=== PATIENT | female | born 1935 | race Caucasian/White ===

== ENCOUNTER 2017-04-16 10:52 | Day surgery (SDC) | payer MEDICARE ==
[2017-04-16] MEDS ORDERED: MethylPREDNISolone Depo 40 mg/ml Inj ONE (11:51)
[2017-04-16] MEDS ORDERED: Bupivacaine HCl 0.5% PF (10 ml) Inj ONE ×2 (11:52→12:01)
[2017-04-16] MEDS ORDERED: Iohexol 300 10 ML ONE (11:52)
[2017-04-16 11:54] VITALS: BMI 39.6
[2017-04-16] MEDS ORDERED: Bupivacaine HCl 0.25% PF (30 ml) Inj ONE (12:01)
[2017-04-16] MEDS ORDERED: Midazolam 2 MG/2 ML VIAL ONE (12:16)
[2017-04-16] MEDS ORDERED: Lactated Ringer's 1,000 ML IV ONE (12:22)
[2017-04-16] MEDS ORDERED: Lidocaine 1% Inj (20ml) ONE (12:22)
[2017-04-16] MEDS ORDERED: Bupivacaine 0.25% Inj(30mL) IJ ONE (12:32)
[2017-04-16] MEDS ORDERED: Iohexol 300 10 ML IJ ONE (12:32)
[2017-04-16] MEDS ORDERED: Lidocaine 1% Inj (20ml) IJ ONE (12:33)
[2017-04-16] MEDS ORDERED: MethylPREDNISolone Depo 40 mg/ml Inj IM ONE ×2 (12:35)
[2017-04-16 13:00] VITALS: RESP 18
[2017-04-16] MEDS ORDERED: Lactated Ringer's 1,000 ML IV SCH (14:11)
[2017-04-16 15:10] VITALS: BP 144/69; PULSE 72; TEMP 97; O2SAT 98
--- NOTE | 2017-04-16 16:01 | RAD ---
PROCEDURE: Fluoroscopy up to 1 hr. HISTORY: PAIN MANAGEMENT COMPARISON: None TECHNIQUE: Standard FINDINGS: Submitted images from the current procedure: 3.0 IMPRESSION: Less than 1 hr fluoroscopic time utilized during performance of the procedure. Total fluoroscopic time (continuous mode) utilized during the procedure: 39.6 seconds.
--- NOTE | 2017-04-18 08:02 | PCM.OP ---
Operative Report - Operative Report Date of Surgery/Procedure: 04/16/17 Time of Surgery/Procedure: 13:30 Surgeon: Lucho Anesthesia/Sedation: Monitored Anesthesia Care. Pre-Operative Diagnosis: Lumbar radiculopathy Post-Operative Diagnosis: Same Indication for Surgery: Intractable Pain Operative Findings: See dictation. Procedure/Operation Description: Left L3-4, L4-5, L5-6 transforaminal epidural steroid injections Estimated Blood Loss: None. Complications: NOne. Discharge & Condition: Stable to home.
== END 2017-04-16 15:15 | disposition home or self-care (01) ==
LOC: H.OPSURG 10:52
PROVIDERS: ATTEND Anesthesiology
DX: M54.16 Radiculopathy, lumbar region (principal); E11.9 Type 2 diabetes mellitus without complications; I10 Essential (primary) hypertension; Z86.73 Personal history of transient ischemic attack (TIA), and cerebral infarction without residual deficits
CPT/HCPCS: 64483; 64484; 82948; J1030; J2250; J3010; J7120; Q9967

== ENCOUNTER 2017-05-30 15:20 | Observation (INO) | payer MEDICARE ==
[2017-05-30 15:20] VITALS: BMI 39.6
--- NOTE | 2017-05-30 15:50 | ED PDOC ---
HPI: Abdomen Time Seen by Provider: 05/30/17 15:31 Chief Complaint (Nursing): Abdominal Pain Chief Complaint (Provider): Dizziness History Per: Patient History/Exam Limitations: no limitations Onset/Duration Of Symptoms: Days Current Symptoms Are (Timing): Still Present Associated Symptoms: Nausea, Vomiting Additional Complaint(s): Bebe Wheeler presents to the ED for a chief complaint of dizziness that exacerbates with side to side head movement. Associated symptoms include nausea and vomiting x2days. Denies any chest pain, palpitations, headache or loss of consciousness. Of note, patient has a past medical history of diabetes, HTN, and CVA. PMD: Dr. Carlos Goldman. Past Medical History Reviewed: Historical Data, Nursing Documentation, Vital Signs Vital Signs: Last Vital Signs Temp 97.8 F 05/30/17 15:27 Pulse 76 05/30/17 15:27 Resp 18 05/30/17 15:27 BP 131/65 05/30/17 15:27 Pulse Ox 96 05/30/17 16:02 - Medical History PMH: Asthma, Atrial Fibrillation (new onset), COPD, HTN, Hypercholesterolemia Denies: Arthritis, CHF, Hypothyroidism, Chronic Kidney Disease, Rheumatoid Arthritis - Surgical History Surgical History: No Surg Hx - Family History Family History: States: Unknown Family Hx - Home Medications Home Medications: Ambulatory Orders Medication Instructions Recorded hydroCHLOROthiazide [Microzide] 12.5 mg PO DAILY 03/24/15 Lisinopril 10 mg PO DAILY 11/23/15 metFORMIN [glucOPHAGE] 850 mg PO BID 12/07/15 Aspirin [Ecotrin] 81 mg PO DAILY 05/30/17 LORazepam [Ativan] 0.5 mg PO BID PRN 05/30/17 Simvastatin [Simvastatin] 10 mg PO HS 05/30/17 - Allergies Allergies/Adverse Reactions: Allergies Allergy/AdvReac Type Severity Reaction Status Date / Time aspirin Allergy SWELLING Verified 05/30/17 15:27 olive oil Allergy SWELLING Verified 05/30/17 15:27 Review of Systems ROS Statement: Except As Marked, All Systems Reviewed And Found Negative Cardiovascular: Negative for: Chest Pain, Palpitations Gastrointestinal: Positive for: Nausea (x2days.), Vomiting (x2days.) Neurological: Positive for: Dizziness. Negative for: Headache, Other (No Loss of consciousness.) Physical Exam - Reviewed Nursing Documentation Reviewed: Yes Vital Signs Reviewed: Yes - Physical Exam Appears: Positive for: Well, Non-toxic, No Acute Distress Head Exam: Positive for: ATRAUMATIC, NORMAL INSPECTION, NORMOCEPHALIC Eye Exam: Positive for: Normal appearance, EOMI, PERRL Cardiovascular/Chest: Positive for: Regular Rate, Rhythm Respiratory: Positive for: Normal Breath Sounds (Lungs lear bilaterally). Negative for: Wheezing, Respiratory Distress Gastrointestinal/Abdominal: Positive for: Normal Exam, Soft. Negative for: Tenderness Extremity: Positive for: Normal ROM (Full range of motion.). Negative for: Swelling Neurologic/Psych: Positive for: Alert (Awake.), Oriented (x3) - Laboratory Results Result Diagrams: 05/30/17 16:25 05/30/17 16:25 - ECG O2 Sat by Pulse Oximetry: 96 (RA) Pulse Ox Interpretation: Normal Medical Decision Making Medical Decision Making: Time: 1531: Initial Impression: 82 year old female with dizziness. Initial Plan: * Head CT * EKG * CBC W/ differentials * Troponin I * CMP * Re-evaluation Scribe Attestation: Documented by Arleen Freed acting as a scribe for Kit Tucker MD. Provider Scribe Attestation: All medical record entries made by the Scribe were at my direction and personally dictated by me. I have reviewed the chart and agree that the record accurately reflects my personal performance of the history, physical exam, medical decision making, and the department course for this patient. I have also personally directed, reviewed, and agree with the discharge instructions and disposition. Disposition - Clinical Impression Clinical Impression: Vertigo, Intracerebral bleed - Patient ED Disposition Is Patient to be Admitted: Yes - Disposition Disposition Time: 17:54 Condition: FAIR Forms: Local [employer] (Romanian) - Pt Status Changed To: Hospital Disposition Of: Observation - POA Present On Arrival: None
[2017-05-30 16:49] LABS: BASO % 0.2 % (0.0-2.0); EOS # 0.1 K/uL (0.0-0.7); EOS % 1.9 % (0.0-4.0); HEMOGLOBIN 14.1 g/dL (12.0-16.0); LYMPH # 1.7 K/uL (1.0-4.3); LYMPH % 23.8 % (20.0-40.0); MEAN CELL VOLUME 87.1 fl (81.0-99.0); MEAN CORPUSCULAR HEMOGLOBIN 29.9 pg (27.0-31.0); MEAN CORPUSCULAR HGB CONC 34.4 g/dL (33.0-37.0); MEAN PLATELET VOLUME 9.8 fl (7.2-11.7); MONO # 0.5 K/uL (0.0-0.8); MONO % 7.5 % (0.0-10.0); NEUT # 4.8 K/uL (1.8-7.0); NEUT % 66.6 % (50.0-75.0); NRBC % 0.1 % (0.0-0.0); RBC 4.73 Mil/uL (3.80-5.20); RED CELL DISTRIBUTION WIDTH 13.4 % (11.5-14.5); WHITE BLOOD COUNT 7.2 K/uL (4.8-10.8)
[2017-05-30 16:51] LABS: ALB/GLOB RATIO 1.5 (1.0-2.1); ALBUMIN 3.6 g/dL (3.5-5.0); ALT/SGPT 34 U/L (9-52); AST/SGOT 20 U/L (14-36); BLOOD UREA NITROGEN 15 mg/dl (7-17); CALCIUM 9.9 mg/dL (8.4-10.2); GFR AFRICAN-AMERICAN > 60; GFR NON-AFRICAN AMERICAN > 60
--- NOTE | 2017-05-30 17:55 | CT ---
PROCEDURE: CT HEAD WITHOUT CONTRAST. HISTORY: r/o bleed COMPARISON: None available. TECHNIQUE: Axial computed tomography images were obtained through the head/brain without intravenous contrast. Coronal and sagittal reconstructed images. Radiation dose: Total exam DLP = 813.52 mGy-cm. This CT exam was performed using one or more of the following dose reduction techniques: Automated exposure control, adjustment of the mA and/or kV according to patient size, and/or use of iterative reconstruction technique. FINDINGS: HEMORRHAGE: Punctate foci of increased attenuation with mean Hounsfield values of 65 for what appears to be a small jasmine-thalamic acute hemorrhage on the left. There is an additional all focal area of increased attenuation similar Hounsfield unit values in the right cerebellar hemisphere. The etiology of these is uncertain/ unknown. BRAIN: No mass effect or edema. Cortical atrophy and periventricular small vessel disease. VENTRICLES: Unremarkable. No hydrocephalus. CALVARIUM: Unremarkable. PARANASAL SINUSES: Unremarkable as visualized. No significant inflammatory changes. MASTOID AIR CELLS: Unremarkable as visualized. No inflammatory changes. OTHER FINDINGS: None. IMPRESSION: Foci increased attenuation none larger than 9 mm left jasmine-thalamic region and right cerebellar hemisphere suspicious for acute hemorrhage. Communication of results: I discussed the findings with the attending physician in the emergency department at 17:49. The study was completed at 17:26.
--- NOTE | 2017-05-30 18:13 | US ---
HISTORY: ruq pain COMPARISON: None. TECHNIQUE: Sonographic evaluation of the right upper quadrant of the abdomen. FINDINGS: LIVER: Measures 15.1 cm in length. Normal echogenicity of the liver parenchyma. No mass. No intrahepatic bile duct dilatation. GALLBLADDER: Unremarkable. No gallstones. COMMON BILE DUCT: Measures 3 mm. No stones. No dilatation. PANCREAS: Could not be visualized due to overlying bowel gas. RIGHT KIDNEY: Measures 10.4 cm in length. Normal echogenicity. No calculus, mass, or hydronephrosis. AORTA: Could not be visualized. IVC: Unremarkable. OTHER FINDINGS: None . IMPRESSION: No evidence of cholelithiasis or cholecystitis. Limited examination due to patient body habitus.
[2017-05-30] MEDS ORDERED: Iodixanol 320 MG/ML 100 ML BOTTLE IV ONE (19:22)
[2017-05-30] MEDS ORDERED: Sodium Chloride 0.9% 50 ML IV ONE (19:22)
[2017-05-31] MEDS ORDERED: Labetalol 5mg/ml (4ml) IVP PRN (00:31)
[2017-05-31 07:38] LABS: ALB/GLOB RATIO 1.5 (1.0-2.1); ALBUMIN 3.5 g/dL (3.5-5.0); ALT/SGPT 34 U/L (9-52); AST/SGOT 19 U/L (14-36); BLOOD UREA NITROGEN 11 mg/dl (7-17); CALCIUM 9.8 mg/dL (8.4-10.2); GFR AFRICAN-AMERICAN > 60; GFR NON-AFRICAN AMERICAN > 60; HDL CHOLESTEROL 37 MG/DL (30-70); HEMOGLOBIN 14.2 g/dL (12.0-16.0); MEAN CELL VOLUME 86.5 fl (81.0-99.0); MEAN CORPUSCULAR HEMOGLOBIN 29.9 pg (27.0-31.0); MEAN CORPUSCULAR HGB CONC 34.6 g/dL (33.0-37.0); RBC 4.75 Mil/uL (3.80-5.20); RED CELL DISTRIBUTION WIDTH 13.3 % (11.5-14.5)
[2017-05-31 07:49] LABS: LDL CHOLESTEROL 64 mg/dL (0-129)
[2017-05-31 08:15] LABS: INR 1.2 (0.9-1.2); PROTHROMBIN TIME 11.9 Seconds (9.8-13.1)
--- NOTE | 2017-05-31 08:15 | CARD ---
APPROVED REPORT EKG Measurement Heart [id number] NE 150P58 [id number] <Conclusion> Normal sinus rhythm Normal ECG
[2017-05-31] MEDS ORDERED: Pravastatin Sodium 20 MG TAB PO SCH (09:00)
--- NOTE | 2017-05-31 09:32 | CP.PCM.PN ---
Subjective - Date & Time of Evaluation Date of Evaluation: 05/31/17 Time of Evaluation: 09:29 - Subjective Subjective: called by ER attending regarding CT two small hyperintense nodules less than [address] on in lat BG other cerebellum There is no mass effect No surgical lesions differential is embolic phenomina that hemmorhages, mets that hemmorhages, or non specific calcifications Suggest f/u by neurology and complete neuro work up no role for neurosurgery at this time Objective - Vital Signs/Intake and Output Vital Signs (last 24 hours): Temp Pulse Resp BP Pulse Ox 97.7 F 75 20 136/77 95 05/31/17 08:00 05/31/17 09:18 05/31/17 08:00 05/31/17 09:18 05/31/17 08:00 - Medications Medications: Current Medications Hydrochlorothiazide (Microzide) 12.5 mg PO DAILY [facility] Last Admin: 05/31/17 09:17 Dose: 12.5 mg Labetalol HCl (Trandate) 10 mg IVP Q4 PRN PRN Reason: Systolic Blood Pressure Lisinopril (Zestril) 10 mg PO DAILY [facility] Last Admin: 05/31/17 09:18 Dose: 10 mg Metformin HCl (Glucophage) 850 mg PO BID [facility] Last Admin: 05/31/17 09:17 Dose: 850 mg Pravastatin Sodium (Pravachol) 20 mg PO HS [facility] Last Admin: 05/31/17 09:17 Dose: 20 mg - Labs Labs: 05/31/17 06:00 05/31/17 06:00 PT 11.9 Seconds (9.8-13.1) 05/31/17 06:00 INR 1.2 (0.9-1.2) 05/31/17 06:00
[2017-05-31] MEDS ORDERED: Gadodiamide 287 MG/ML VIAL (15ML) IV ONE (10:36)
--- NOTE | 2017-05-31 11:47 | CARD ---
APPROVED REPORT EXAM: Two-dimensional and M-mode echocardiogram with Doppler and color Doppler. Other Information Quality : AverageRhythm : Atrial Fibrillation INDICATION Dizziness and Vertigo Septic Emboli 2D DIMENSIONS IVSd1.06 (0.7-1.1cm)LVDd2.71 (3.9-5.9cm) LVOT Diameter1.67 (1.8-2.4cm)PWd1.03 (0.7-1.1cm) IVSs1.47 (0.8-1.2cm)LVDs1.80 (2.5-4.0cm) FS (%) 33.5 %PWs1.28 (0.8-1.2cm) M-Mode DIMENSIONS Left Atrium (MM)5.79 (2.5-4.0cm)IVSd1.06 (0.7-1.1cm) Aortic Root2.88 (2.2-3.7cm)LVDd4.86 (4.0-5.6cm) Aortic Cusp Exc.1.99 (1.5-2.0cm)PWd1.16 (0.7-1.1cm) IVSs1.62 cmFS (%) 27 % LVDs3.57 (2.0-3.8cm)PWs1.39 cm Mitral Valve MV E Iyjordsn237.4cm/sMV DECEL [id number] A Bwsvbdnp85.8cm/s MV BPY40rmT/A ratio1.7MVA (PHT)4.16cm2 TDI E/Lateral E'0.0E/Medial E'0.0 Pulmonary Valve PV Peak Mnrmlkpr96.7cm/s LEFT VENTRICLE The left ventricle is normal size. There is normal left ventricular wall thickness. The left ventricular function is normal. The left ventricular ejection fraction is within the normal range. The Ejection Fraction is 60-65%. There is normal LV segmental wall motion. The left ventricular diastolic function is normal. No left ventricle thrombus noted on this study. There is no mass noted in the left ventricle. RIGHT VENTRICLE The right ventricle is normal size. There is normal right ventricular wall thickness. The right ventricular systolic function is normal. ATRIA The left atrium size is normal. The right atrium size is normal. The interatrial septum is intact with no evidence for an atrial septal defect. AORTIC VALVE The aortic valve is normal in structure and function. No aortic regurgitation is present. There is no aortic valvular stenosis. There is no aortic valvular vegetation. MITRAL VALVE The mitral valve is normal in structure and function. There is no evidence of mitral valve prolapse. There is no mitral valve stenosis. There is no mitral valve regurgitation noted. TRICUSPID VALVE The tricuspid valve is normal in structure and function. There is no tricuspid valve regurgitation noted. There is no tricuspid valve prolapse or vegetation. There is no tricuspid valve stenosis. PULMONIC VALVE The pulmonary valve is normal in structure and function. There is no pulmonic valvular regurgitation. There is no pulmonic valvular stenosis. GREAT VESSELS The aortic root is normal in size. The IVC is normal in size and collapses >50% with inspiration. PERICARDIAL EFFUSION The pericardium appears normal. There is no pleural effusion. <Conclusion> The left ventricle is normal size. There is normal left ventricular wall thickness. The left ventricular function is normal. The left ventricular ejection fraction is within the normal range. The Ejection Fraction is 60-65%.
[2017-05-31 12:42] VITALS: O2SAT 97
--- NOTE | 2017-05-31 13:02 | MRI ---
PROCEDURE: MRI BRAIN WITH AND WITHOUT CONTRAST HISTORY: r/o bleeding COMPARISON: None. TECHNIQUE: Multiplanar, multisequence MR images of the brain were obtained with and without intravenous contrast enhancement. FINDINGS: HEMORRHAGE: Blooming artifact on gradient echo imaging in the left thalamus compatible with old hemorrhage. DWI: No evidence of an acute or early subacute infarction. BRAIN PARENCHYMA: No mass,mass effect or edema. Chronic periventricular white matter ischemic disease. ENHANCEMENT: No abnormal intracranial enhancement. VENTRICLES: Unremarkable. No hydrocephalus. CRANIUM: Unremarkable. ORBITS: Grossly unremarkable. PARANASAL SINUSES/MASTOIDS: Clear VASCULAR SYSTEM: Skull base flow voids intact. OTHER FINDINGS: None . IMPRESSION: Chronic periventricular white matter ischemic disease. Small focus of old hemorrhage in the left basal ganglia.
--- NOTE | 2017-05-31 14:25 | CT ---
PROCEDURE: CT Angiography of the Brain. HISTORY: r/o aneurysm COMPARISON: Comparison is made to the previous CT of the head without contrast dated 05/30/2017 TECHNIQUE: CT angiography of the intracranial arteries was performed. Coronal and sagittal maximum intensity projection reformated images were generated. This CT exam was performed using one or more of the following dose reduction techniques: Automated exposure control, adjustment of the mA and/or kV according to patient size, and/or use of iterative reconstruction technique. FINDINGS: INTERNAL CEREBRAL ARTERIES: Unremarkable. The skull base, petrous, cavernous and supraclinoid segments are bilaterally widely patient. ANTERIOR CEREBRAL ARTERIES: Unremarkable. A1 and A2 segments are widely patent. Smaller distal branches unremarkable, as visualized. MIDDLE CEREBRAL ARTERIES: Unremarkable. M1 and M2 segments are widely patent. Perisylvian branches grossly symmetric. POSTERIOR CIRCULATION: Basilar Artery: Unremarkable. Distal Vertebral Arteries: Unremarkable. Posterior Cerebral Arteries: Unremarkable. Posterior Inferior Cerebellar Arteries: Unremarkable. ANEURYSM/ VASCULAR MALFORMATIONS: None. OTHER FINDINGS: None. IMPRESSION: No CTA evidence of aneurysm. No evidence of focal stenosis or occlusion in the intracranial arteries.
[2017-05-31 16:10] VITALS: BP 133/75; PULSE 71; RESP 20; TEMP 97.8
--- NOTE | 2017-05-31 17:21 | CP.PCM.CON ---
History of Present Illness - History of Present Illness History of Present Illness: Mrs. Wheeler is an 82-year-old woman with a past medical history of HTN, DM, neuropathy, vertigo, previous CVA with residual right side weakness who usually takes care of all of her ADLs that complains of nausea, vertigo and difficulty with ambulation. CT scan of the head showed two areas of possible hyperdensity concerning for small bleeds. MRI showed that there is a chronic left basal ganglia small hemorrhage and the others are likely old infarcts. There were a significant amount of what appeared to be chronic small vessel disease and more distal white matter disease as well. Today, the patient is feeling better with regard to the vertigo and feels improved with meclizine. According to the family , the patient had suffered from atrial fibrillation in the past while she was hospitalized with pneumonia. She was never started on anticoagulation. She is supposed to be on aspirin 81 mg daily, but does not take it. Review of Systems - Review of Systems All systems: reviewed and no additional remarkable complaints except Past Patient History - Past Medical History & Family History Past Medical History?: Yes - Past Social History Smoking Status: Never Smoked - CARDIAC Hx Atrial Fibrillation: Yes (new onset) Hx Congestive Heart Failure: No Hx Hypercholesterolemia: Yes Hx Hypertension: Yes - PULMONARY Hx Asthma: Yes Hx Chronic Obstructive Pulmonary Disease (COPD): Yes - NEUROLOGICAL Hx Neurological Disorder: No HX Cerebrovascular Accident: Yes - HEENT Hx HEENT Problems: No - RENAL Hx Chronic Kidney Disease: No - ENDOCRINE/METABOLIC Hx Hypothyroidism: No - HEMATOLOGICAL/ONCOLOGICAL Hx Blood Disorders: No Hx Blood Transfusion Reaction: No - INTEGUMENTARY Hx Dermatological Problems: No Other/Comment: Zoster last month - MUSCULOSKELETAL/RHEUMATOLOGICAL Hx Arthritis: No Hx Falls: Yes (Fell years ago) Hx Rheumatoid Arthritis: No - GASTROINTESTINAL Hx Gastrointestinal Disorders: No - GENITOURINARY/GYNECOLOGICAL Hx Genitourinary Disorders: No - PSYCHIATRIC Hx Emotional Abuse: No Hx Physical Abuse: No Hx Substance Use: No - SURGICAL HISTORY Hx Surgeries: Yes Hx Breast Biopsy: Yes (Right breast as daughter.) Other/Comment: BACK SURGERY;RIGHT HAND SURGERY;RIGHT FOOT. EPIDURAL - ANESTHESIA Hx Anesthesia: Yes Hx Anesthesia Reactions: No Hx Malignant Hyperthermia: No Meds Allergies/Adverse Reactions: Allergies Allergy/AdvReac Type Severity Reaction Status Date / Time aspirin Allergy SWELLING Verified 05/30/17 15:27 olive oil Allergy SWELLING Verified 05/30/17 15:27 - Medications Medications: Current Medications Hydrochlorothiazide (Microzide) 12.5 mg PO DAILY [facility] Last Admin: 05/31/17 09:17 Dose: 12.5 mg Labetalol HCl (Trandate) 10 mg IVP Q4 PRN PRN Reason: Systolic Blood Pressure Lisinopril (Zestril) 10 mg PO DAILY [facility] Last Admin: 05/31/17 09:18 Dose: 10 mg Metformin HCl (Glucophage) 850 mg PO BID [facility] Last Admin: 05/31/17 17:11 Dose: 850 mg Pravastatin Sodium (Pravachol) 20 mg PO HS [facility] Last Admin: 05/31/17 09:17 Dose: 20 mg Physical Exam - Constitutional Appears: Well - Head Exam Head Exam: ATRAUMATIC, NORMAL INSPECTION, NORMOCEPHALIC - Eye Exam Eye Exam: EOMI, Normal appearance, PERRL - ENT Exam ENT Exam: Mucous Membranes Moist, Normal Exam - Neck Exam Neck exam: Positive for: Normal Inspection - Respiratory Exam Respiratory Exam: Clear to Auscultation Bilateral, NORMAL BREATHING PATTERN - Cardiovascular Exam Cardiovascular Exam: REGULAR RHYTHM, +S1, +S2 - GI/Abdominal Exam GI & Abdominal Exam: Normal Bowel Sounds, Soft. absent: Tenderness - Rectal Exam Rectal Exam: Deferred - Extremities Exam Extremities exam: Positive for: normal inspection - Back Exam Back exam: NORMAL INSPECTION - Neurological Exam Neurological exam: Abnormal Gait, Alert, CN II-XII Intact, Oriented x3 - Expanded Neurological Exam Expanded Patient oriented to: person, place, time Cranial nerves: EOM's Intact: Normal, Facial Sensation: Normal Ataxia: No Cerebellar Function: Finger to Nose: Abnormal Right Upper motor neuron: Babinski Sign: Abnormal Right Sensory exam: Lower Extremity Light Touch: Normal, Lower Extremity Pin Prick: Normal, Upper Extremity Light Touch: Normal, Upper Extremity Pin Prick: Normal Neuro motor strength exam: Left Upper Extremity: 5, Right Upper Extremity: 4, Left Lower Extremity: 5, Right Lower Extremity: 4 DTR: Achilles Tendon Left: 2+, Achilles Tendon Right: 2+, Bicep Left: 2+, Bicep Right: 2+, Brachioradialis Left: 2+, Brachioradialis Right: 2+, Patellar Left: 2 +, Patellar Right: 2+, Tricep Left: 2+, Tricep Right: 2+ - Psychiatric Exam Psychiatric exam: Normal Affect, Normal Mood - Skin Skin Exam: Dry, Intact, Normal Color, Warm Results - Vital Signs Recent Vital Signs: Last Vital Signs Temp 97.8 F 05/31/17 16:09 Pulse 71 05/31/17 16:09 Resp 20 05/31/17 16:09 BP 133/75 05/31/17 16:09 Pulse Ox 97 05/31/17 16:09 - Labs Result Diagrams: 05/31/17 06:00 05/31/17 06:00 Labs: Laboratory Results - last 24 hr 05/30/17 05/31/17 05/31/17 21:43 06:00 06:00 WBC 6.0 RBC 4.75 Hgb 14.2 Hct 41.1 MCV 86.5 MCH 29.9 MCHC 34.6 RDW 13.3 Plt Count 90 L PT 11.9 INR 1.2 Sodium Potassium Chloride Carbon Dioxide Anion Gap BUN Creatinine Est GFR ( Amer) Est GFR (Non-Af Amer) POC Glucose (mg/dL) 120 H Random Glucose Calcium Total Bilirubin AST ALT Alkaline Phosphatase Troponin I Total Protein Albumin Globulin Albumin/Globulin Ratio Triglycerides Cholesterol LDL Cholesterol Direct HDL Cholesterol TSH 3rd Generation 05/31/17 05/31/17 05/31/17 06:00 06:00 06:03 WBC RBC Hgb Hct MCV MCH MCHC RDW Plt Count PT INR Sodium 141 Potassium 3.5 L Chloride 103 Carbon Dioxide 31 H Anion Gap 11 BUN 11 Creatinine 0.5 L Est GFR ( Amer) > 60 Est GFR (Non-Af Amer) > 60 POC Glucose (mg/dL) 120 H Random Glucose 118 H Calcium 9.8 Total Bilirubin 0.7 AST 19 ALT 34 Alkaline Phosphatase 49 Troponin I < 0.0120 Total Protein 5.9 L Albumin 3.5 Globulin 2.4 Albumin/Globulin Ratio 1.5 Triglycerides 124 D Cholesterol 120 LDL Cholesterol Direct 64 HDL Cholesterol 37 TSH 3rd Generation 2.29 05/31/17 15:50 WBC RBC Hgb Hct MCV MCH MCHC RDW Plt Count PT INR Sodium Potassium Chloride Carbon Dioxide Anion Gap BUN Creatinine Est GFR ( Amer) Est GFR (Non-Af Amer) POC Glucose (mg/dL) 134 H Random Glucose Calcium Total Bilirubin AST ALT Alkaline Phosphatase Troponin I Total Protein Albumin Globulin Albumin/Globulin Ratio Triglycerides Cholesterol LDL Cholesterol Direct HDL Cholesterol TSH 3rd Generation Assessment & Plan (1) Vertigo Assessment and Plan: Continue meclizine 25 mg BID PRN vertigo. Status: Acute (2) Intracerebral bleed Assessment and Plan: Based on MRI this is chronic and there is no acute bleed. Since she has a history of ischemic stroke and multiple areas of ischemic, as well as risk factors of hypertension, diabetes and possibly atrial fibrillation, I recommend continuing aspirin 81 mg daily, statin, glucose control and PT/OT eval with treatment if needed. Furthermore, I recommend that the patient is seen by cardiology for prolonged cardiac monitoring to determine if she has paroxysmal atrial fibrillation. This was communicated with the family as well. Follow-up with outpatient neurology and cardiology. Thank you. Status: Acute Priority: Medium
--- NOTE | 2017-05-31 20:40 | CP.PCM.HP ---
History of Present Illness - History of Present Illness History of Present Illness: 82 yo with hx of NIDDM HTN previous CVA admited for vague sx and CT scan of head showing hemorrhages PT may have taken extra doses of Ativan due to increased anxiety of granddaughter getting Present on Admission - Present on Admission Any Indicators Present on Admission: No Past Patient History - Past Medical History & Family History Past Medical History?: Yes - Past Social History Smoking Status: Never Smoked - CARDIAC Hx Atrial Fibrillation: Yes (new onset) Hx Congestive Heart Failure: No Hx Hypercholesterolemia: Yes Hx Hypertension: Yes - PULMONARY Hx Asthma: Yes Hx Chronic Obstructive Pulmonary Disease (COPD): Yes - NEUROLOGICAL Hx Neurological Disorder: No HX Cerebrovascular Accident: Yes - HEENT Hx HEENT Problems: No - RENAL Hx Chronic Kidney Disease: No - ENDOCRINE/METABOLIC Hx Hypothyroidism: No - HEMATOLOGICAL/ONCOLOGICAL Hx Blood Disorders: No Hx Blood Transfusion Reaction: No - INTEGUMENTARY Hx Dermatological Problems: No Other/Comment: Zoster last month - MUSCULOSKELETAL/RHEUMATOLOGICAL Hx Arthritis: No Hx Falls: Yes (Fell years ago) Hx Rheumatoid Arthritis: No - GASTROINTESTINAL Hx Gastrointestinal Disorders: No - GENITOURINARY/GYNECOLOGICAL Hx Genitourinary Disorders: No - PSYCHIATRIC Hx Emotional Abuse: No Hx Physical Abuse: No Hx Substance Use: No - SURGICAL HISTORY Hx Surgeries: Yes Hx Breast Biopsy: Yes (Right breast as daughter.) Other/Comment: BACK SURGERY;RIGHT HAND SURGERY;RIGHT FOOT. EPIDURAL - ANESTHESIA Hx Anesthesia: Yes Hx Anesthesia Reactions: No Hx Malignant Hyperthermia: No Meds Allergies/Adverse Reactions: Allergies Allergy/AdvReac Type Severity Reaction Status Date / Time aspirin Allergy SWELLING Verified 05/30/17 15:27 olive oil Allergy SWELLING Verified 05/30/17 15:27 Physical Exam - Respiratory Exam Respiratory Exam: NORMAL BREATHING PATTERN - Cardiovascular Exam Cardiovascular Exam: REGULAR RHYTHM - GI/Abdominal Exam GI & Abdominal Exam: Normal Bowel Sounds - Neurological Exam Neurological exam: Oriented x3 Results - Vital Signs Recent Vital Signs: Last Vital Signs Temp 97.8 F 05/31/17 16:09 Pulse 71 05/31/17 16:09 Resp 20 05/31/17 16:09 BP 133/75 05/31/17 16:09 Pulse Ox 97 05/31/17 16:09 - Labs Result Diagrams: 05/31/17 06:00 05/31/17 06:00 Labs: Laboratory Results - last 24 hr 05/30/17 05/31/17 05/31/17 21:43 06:00 06:00 WBC 6.0 RBC 4.75 Hgb 14.2 Hct 41.1 MCV 86.5 MCH 29.9 MCHC 34.6 RDW 13.3 Plt Count 90 L PT 11.9 INR 1.2 Sodium Potassium Chloride Carbon Dioxide Anion Gap BUN Creatinine Est GFR ( Amer) Est GFR (Non-Af Amer) POC Glucose (mg/dL) 120 H Random Glucose Calcium Total Bilirubin AST ALT Alkaline Phosphatase Troponin I Total Protein Albumin Globulin Albumin/Globulin Ratio Triglycerides Cholesterol LDL Cholesterol Direct HDL Cholesterol TSH 3rd Generation 05/31/17 05/31/17 05/31/17 06:00 06:00 06:03 WBC RBC Hgb Hct MCV MCH MCHC RDW Plt Count PT INR Sodium 141 Potassium 3.5 L Chloride 103 Carbon Dioxide 31 H Anion Gap 11 BUN 11 Creatinine 0.5 L Est GFR ( Amer) > 60 Est GFR (Non-Af Amer) > 60 POC Glucose (mg/dL) 120 H Random Glucose 118 H Calcium 9.8 Total Bilirubin 0.7 AST 19 ALT 34 Alkaline Phosphatase 49 Troponin I < 0.0120 Total Protein 5.9 L Albumin 3.5 Globulin 2.4 Albumin/Globulin Ratio 1.5 Triglycerides 124 D Cholesterol 120 LDL Cholesterol Direct 64 HDL Cholesterol 37 TSH 3rd Generation 2.29 05/31/17 05/31/17 15:50 17:16 WBC RBC Hgb Hct MCV MCH MCHC RDW Plt Count PT INR Sodium Potassium Chloride Carbon Dioxide Anion Gap BUN Creatinine Est GFR ( Amer) Est GFR (Non-Af Amer) POC Glucose (mg/dL) 134 H Random Glucose Calcium Total Bilirubin AST ALT Alkaline Phosphatase Troponin I < 0.0120 Total Protein Albumin Globulin Albumin/Globulin Ratio Triglycerides Cholesterol LDL Cholesterol Direct HDL Cholesterol TSH 3rd Generation Assessment & Plan - Assessment and Plan (Free Text) Assessment: CT scan acute findings?? Admit to telelmetry Neurology MRI Long d/w family
== END 2017-05-31 19:00 | disposition home or self-care (01) ==
LOC: H.ER 15:20 → H.ERHOLD 17:52 → H.TEL 21:22
PROVIDERS: ADMIT Family Medicine Geriatric Medicine; ATTEND Family Medicine Geriatric Medicine
DX: R42 Dizziness and giddiness (principal); I69.151 Hemiplegia and hemiparesis following nontraumatic intracerebral hemorrhage affecting right dominant side; E11.40 Type 2 diabetes mellitus with diabetic neuropathy, unspecified; I48.91 Unspecified atrial fibrillation; I10 Essential (primary) hypertension; E78.00 Pure hypercholesterolemia, unspecified; J44.9 Chronic obstructive pulmonary disease, unspecified; Z88.6 Allergy status to analgesic agent
CPT/HCPCS: 36415; 70450; 70496; 70553; 76705; 80053; 80061; 82948; 83036; 84443; 84484; 85025; 85027; 85610; 87040; 93005; 93306; 99285; A9579; G0378; Q9967

== ENCOUNTER 2017-10-30 11:58 | Observation (INO) | payer MEDICARE ==
[2017-10-30 11:58] VITALS: BMI 39.6
--- NOTE | 2017-10-30 13:33 | ED PDOC ---
HPI: General Adult Time Seen by Provider: 10/30/17 12:00 Chief Complaint (Nursing): Abnormal Labs Chief Complaint (Provider): Abnormal Labs History Per: Patient History/Exam Limitations: no limitations Onset/Duration Of Symptoms: Days (x2) Additional Complaint(s): 82 y/o female with a past medical history of diabetes, hypertension, and previous CVA, sent to the emergency department by PMD due to elevated INR on labs yesterday. Daughter states patient was hospitalized in May [address] Head showed multiple old infarcts. Patient was started on warfarin thereafter. Patient denies any nausea, vomiting, headache, shortness of breath, chest pain, or dizziness at this time. PMD: Dr. Antonio Cooney Past Medical History Reviewed: Historical Data, Nursing Documentation, Vital Signs Vital Signs: Last Vital Signs Temp 98.2 F 10/31/17 16:10 Pulse 90 10/31/17 16:10 Resp 14 10/31/17 16:10 BP 122/71 10/31/17 16:10 Pulse Ox 96 10/31/17 16:10 - Medical History PMH: Asthma, Atrial Fibrillation (new onset), COPD, CVA, Diabetes, HTN, Hypercholesterolemia Denies: Arthritis, CHF, Hypothyroidism, Chronic Kidney Disease, Rheumatoid Arthritis - Family History Family History: States: Unknown Family Hx - Home Medications Home Medications: Ambulatory Orders Medication Instructions Recorded hydroCHLOROthiazide [Microzide] 12.5 mg PO DAILY 03/24/15 Lisinopril 10 mg PO DAILY 11/23/15 metFORMIN [glucOPHAGE] 850 mg PO BID 12/07/15 Simvastatin 10 mg PO HS 05/30/17 Warfarin [Coumadin] 2.5 mg PO 1800 #4 tab 10/31/17 - Allergies Allergies/Adverse Reactions: Allergies Allergy/AdvReac Type Severity Reaction Status Date / Time aspirin Allergy VOMITING Verified 10/30/17 12:25 olive oil Allergy SWELLING Verified 05/30/17 15:27 Review of Systems ROS Statement: Except As Marked, All Systems Reviewed And Found Negative Cardiovascular: Negative for: Chest Pain Respiratory: Negative for: Shortness of Breath Gastrointestinal: Negative for: Nausea, Vomiting Neurological: Negative for: Headache, Dizziness Physical Exam - Reviewed Nursing Documentation Reviewed: Yes Vital Signs Reviewed: Yes - Physical Exam Appears: Positive for: Well, Non-toxic, No Acute Distress Head Exam: Positive for: ATRAUMATIC, NORMOCEPHALIC Skin: Positive for: Normal Color, Warm, Dry Eye Exam: Positive for: EOMI, Normal appearance, PERRL ENT: Positive for: Normal ENT Inspection Neck: Positive for: Normal, Painless ROM, Supple Cardiovascular/Chest: Positive for: Regular Rate, Rhythm. Negative for: Murmur Respiratory: Positive for: Normal Breath Sounds. Negative for: Accessory Muscle Use, Respiratory Distress Pulses-Radial (L): 2+ Pulses-Radial (R): 2+ Gastrointestinal/Abdominal: Positive for: Normal Exam, Soft. Negative for: Tenderness Back: Positive for: Normal Inspection. Negative for: Vertebral Tenderness Extremity: Positive for: Normal ROM. Negative for: Pedal Edema, Deformity Neurologic/Psych: Positive for: Alert, merchandising stock associate II-XII, Oriented, Gait (stable). Negative for: Motor/Sensory Deficits - Laboratory Results Result Diagrams: 10/30/17 13:23 10/30/17 13:23 - ECG O2 Sat by Pulse Oximetry: 96 (RA) Pulse Ox Interpretation: Normal Medical Decision Making Medical Decision Making: Time: 13:00 Initial Plan: supratherapuetic INR, no symptoms --CMP --CBC --PTT --Prothrombin time Time: 15:10 Labs reviewed, INR is 8.3. Ordered vitamin K, [address] Cooney Was informed that Dr. Cooney is out of the office, and his nurse practitioner is covering for him. Paged Dr. Cooney's office requesting nurse practitioner. Was informed that the office is closed. Will page Dr. Jenkins instead. Time: 16:18 Dr. Jenkins accepted the patient for admission upon daughter arriving states that pt is pt of Dr Jeff. Dr Cooney is actually a chemical pathologist. spoke with Dr Jeff. accepted admission. requests consults. Patient will be hospitalized for observation for supratherapeutic INR. Scribe Attestation: Documented by Katiuska Rutherford, acting as a scribe for Michele Yang MD Provider Scribe Attestation: All medical record entries made by the Scribe were at my direction and personally dictated by me. I have reviewed the chart and agree that the record accurately reflects my personal performance of the history, physical exam, medical decision making, and the department course for this patient. I have also personally directed, reviewed, and agree with the discharge instructions and disposition. Disposition - Clinical Impression Clinical Impression: Supratherapeutic INR - Patient ED Disposition Is Patient to be Admitted: Yes Counseled Patient/Family Regarding: Studies Performed - Disposition Disposition: Transfer of Care (admitted under Dr. Jenkins) Disposition Time: 15:18 Condition: STABLE - Pt Status Changed To: Hospital Disposition Of: Observation
[2017-10-30 13:51] LABS: BASO % 0.4 % (0.0-2.0); EOS # 0.1 K/uL (0.0-0.7); EOS % 1.5 % (0.0-4.0); HEMOGLOBIN 14.8 g/dL (12.0-16.0); LYMPH # 1.9 K/uL (1.0-4.3); LYMPH % 28.4 % (20.0-40.0); MEAN CELL VOLUME 86.8 fl (81.0-99.0); MEAN CORPUSCULAR HEMOGLOBIN 28.6 pg (27.0-31.0); MEAN PLATELET VOLUME 10.5 fl (7.2-11.7); MONO # 0.4 K/uL (0.0-0.8); MONO % 6.5 % (0.0-10.0); NEUT # 4.3 K/uL (1.8-7.0); NEUT % 63.2 % (50.0-75.0); RBC 5.16 Mil/uL (3.80-5.20); RED CELL DISTRIBUTION WIDTH 12.9 % (11.5-14.5); WHITE BLOOD COUNT 6.7 K/uL (4.8-10.8)
[2017-10-30 14:50] LABS: INR 8.3 (0.9-1.2); PARTIAL THROMBOPLASTIN TIME 64.6 Seconds (25.6-37.1); PROTHROMBIN TIME 96.7 Seconds (9.8-13.1)
[2017-10-30 15:03] LABS: ALB/GLOB RATIO 1.3 (1.0-2.1); ALBUMIN 3.8 g/dL (3.5-5.0); ALT/SGPT 25 U/L (9-52); AST/SGOT 22 U/L (14-36); BLOOD UREA NITROGEN 19 mg/dl (7-17); CALCIUM 10.4 mg/dL (8.4-10.2); GFR AFRICAN-AMERICAN > 60; GFR NON-AFRICAN AMERICAN > 60
--- NOTE | 2017-10-30 21:08 | CP.PCM.PN ---
Subjective - Date & Time of Evaluation Date of Evaluation: 10/30/17 Time of Evaluation: 22:22 - Subjective Subjective: 82 yo with hx of CVA admitted for elevated INR Pt recently started on coumadin following cardiac monitoring Objective - Vital Signs/Intake and Output Vital Signs (last 24 hours): Temp Pulse Resp BP Pulse Ox 98.6 F 72 14 136/83 95 10/30/17 19:36 10/30/17 19:36 10/30/17 19:36 10/30/17 19:36 10/30/17 19:36 - Labs Labs: 10/30/17 13:23 10/30/17 13:23 PT 96.7 Seconds (9.8-13.1) H* 10/30/17 13:23 INR 8.3 (0.9-1.2) H 10/30/17 13:23 APTT 64.6 Seconds (25.6-37.1) H 10/30/17 13:23 - Respiratory Exam Respiratory Exam: NORMAL BREATHING PATTERN - Cardiovascular Exam Cardiovascular Exam: REGULAR RHYTHM - GI/Abdominal Exam GI & Abdominal Exam: Normal Bowel Sounds Assessment and Plan - Assessment and Plan (Free Text) Assessment: Elevated INR Hematology Hx CVA ??arrythmia on radiation oncology therapist Cardiology Neurology
--- NOTE | 2017-10-31 07:13 | CP.PCM.CON ---
History of Present Illness - History of Present Illness History of Present Illness: 82 y/o female sent to the emergency department by PMD due to elevated INR yesterday. Daughter states patient was hospitalized in May [address] Head showed multiple old infarcts. Patient was started on warfarin thereafter. Patient denies any nausea, vomiting, headache, shortness of breath, chest pain, or dizziness at this time. Claims she feels well Pt claims she was taking 1 coumadin a day does not know the dosage or why she is taking it! INR: 8.3 2.6 this AM PT: 96.7 29.1 this AM 05/30/17 ECHO: good LV function Monitor : NSR PMH: CVA Hypertension DM II Past Patient History - Infectious Disease Hx of Infectious Diseases: None - Past Medical History & Family History Past Medical History?: Yes - Past Social History Smoking Status: Never Smoked - CARDIAC Hx Cardiac Disorders: Yes Hx Hypercholesterolemia: Yes Hx Hypertension: Yes - PULMONARY Hx Respiratory Disorders: No - NEUROLOGICAL Hx Neurological Disorder: Yes HX Cerebrovascular Accident: Yes - HEENT Hx HEENT Problems: No - RENAL Hx Chronic Kidney Disease: No - ENDOCRINE/METABOLIC Hx Endocrine Disorders: Yes Hx Diabetes Mellitus Type 2: Yes Hx Hypothyroidism: No - HEMATOLOGICAL/ONCOLOGICAL Hx Blood Disorders: No Hx Blood Transfusion Reaction: No - INTEGUMENTARY Hx Dermatological Problems: No - MUSCULOSKELETAL/RHEUMATOLOGICAL Hx Musculoskeletal Disorders: No Hx Arthritis: No Hx Falls: No Hx Rheumatoid Arthritis: No - GASTROINTESTINAL Hx Gastrointestinal Disorders: No - GENITOURINARY/GYNECOLOGICAL Hx Genitourinary Disorders: No - PSYCHIATRIC Hx Psychophysiologic Disorder: No Hx Emotional Abuse: No Hx Physical Abuse: No Hx Substance Use: No - SURGICAL HISTORY Hx Surgeries: Yes Hx Breast Biopsy: Yes (Right breast as daughter.) Other/Comment: BACK SURGERY;RIGHT HAND SURGERY;RIGHT FOOT. EPIDURAL - ANESTHESIA Hx Anesthesia: Yes Hx Anesthesia Reactions: No Hx Malignant Hyperthermia: No Has any member of the family had a problem w/ anesthesia?: No Meds Allergies/Adverse Reactions: Allergies Allergy/AdvReac Type Severity Reaction Status Date / Time aspirin Allergy VOMITING Verified 10/30/17 12:25 olive oil Allergy SWELLING Verified 05/30/17 15:27 - Medications Medications: Current Medications Hydrochlorothiazide (Microzide) 12.5 mg PO DAILY DAVID Lisinopril (Zestril) 10 mg PO DAILY DAVID Metformin HCl (Glucophage) 850 mg PO BID DAVID Pravastatin Sodium (Pravachol) 20 mg PO HS DAVID Physical Exam - Constitutional Appears: Well - Head Exam Head Exam: NORMAL INSPECTION - Eye Exam Eye Exam: Normal appearance - ENT Exam ENT Exam: Normal Exam - Neck Exam Neck exam: Positive for: Normal Inspection - Respiratory Exam Respiratory Exam: NORMAL BREATHING PATTERN - Cardiovascular Exam Cardiovascular Exam: REGULAR RHYTHM Results - Vital Signs Recent Vital Signs: Last Vital Signs Temp 97.6 F 10/31/17 05:53 Pulse 93 H 10/31/17 05:53 Resp 18 10/31/17 05:53 BP 114/72 10/31/17 05:53 Pulse Ox 94 L 10/31/17 05:53 - Labs Result Diagrams: 10/30/17 13:23 10/30/17 13:23 Labs: Laboratory Results - last 24 hr 10/30/17 10/30/17 10/30/17 13:23 13:23 13:23 WBC 6.7 RBC 5.16 Hgb 14.8 Hct 44.8 MCV 86.8 MCH 28.6 MCHC 33.0 RDW 12.9 Plt Count 112 L D MPV 10.5 Neut % (Auto) 63.2 Lymph % (Auto) 28.4 [place] % (Auto) 6.5 Eos % (Auto) 1.5 Baso % (Auto) 0.4 Neut # 4.3 Lymph # 1.9 [place] # 0.4 Eos # 0.1 Baso # 0.0 PT 96.7 H* INR 8.3 H APTT 64.6 H Sodium 142 Potassium 4.0 Chloride 100 Carbon Dioxide 33 H Anion Gap 13 BUN 19 H Creatinine 0.7 Est GFR ( Amer) > 60 Est GFR (Non-Af Amer) > 60 Random Glucose 125 H Calcium 10.4 H Total Bilirubin 0.4 AST 22 ALT 25 Alkaline Phosphatase 62 Total Protein 6.6 Albumin 3.8 Globulin 2.8 Albumin/Globulin Ratio 1.3 Assessment & Plan (1) Coumadin toxicity Status: Acute (2) Elevated INR (international normalized ratio) due to prior anticoagulant medication ingestion Assessment and Plan: INR is coming down no treatment needed at this time Status: Acute (3) Essential (primary) hypertension Status: Acute (4) Diabetes mellitus Status: Acute
[2017-10-31 09:18] LABS: INR 2.6 (0.9-1.2); PROTHROMBIN TIME 29.1 Seconds (9.8-13.1)
--- NOTE | 2017-10-31 10:49 | CP.PCM.CON ---
History of Present Illness - History of Present Illness History of Present Illness: 82 year old female with a history of DM, HTN, CVA on coumadin, admitted with coumadin toxicity. The patient reports to being told to report to the hospital for an elevated INR. In the ER she was found to have an INR of 8.3 and given vit k 5mg PO x 1. She denies abnormal bleeding and bruising. Past medical history: DM, HTN, CVA Past surgical history: None Family history: Denies hematologic and oncologic problems Social history: Denies tobacco, alcohol, and illicit drug use. Allergies: Aspirin Review of systems: All remaining review of systems including HEENT, cardiovascular, respiratory, gastrointestinal, genitourinary, musculoskeletal, dermatologic, neurologic, and psychiatric are negative unless mentioned in the HPI. Past Patient History - Infectious Disease Hx of Infectious Diseases: None - Past Medical History & Family History Past Medical History?: Yes - Past Social History Smoking Status: Never Smoked - CARDIAC Hx Cardiac Disorders: Yes Hx Hypercholesterolemia: Yes Hx Hypertension: Yes - PULMONARY Hx Respiratory Disorders: No - NEUROLOGICAL Hx Neurological Disorder: Yes HX Cerebrovascular Accident: Yes - HEENT Hx HEENT Problems: No - RENAL Hx Chronic Kidney Disease: No - ENDOCRINE/METABOLIC Hx Endocrine Disorders: Yes Hx Diabetes Mellitus Type 2: Yes Hx Hypothyroidism: No - HEMATOLOGICAL/ONCOLOGICAL Hx Blood Disorders: No Hx Blood Transfusion Reaction: No - INTEGUMENTARY Hx Dermatological Problems: No - MUSCULOSKELETAL/RHEUMATOLOGICAL Hx Musculoskeletal Disorders: No Hx Arthritis: No Hx Falls: No Hx Rheumatoid Arthritis: No - GASTROINTESTINAL Hx Gastrointestinal Disorders: No - GENITOURINARY/GYNECOLOGICAL Hx Genitourinary Disorders: No - PSYCHIATRIC Hx Psychophysiologic Disorder: No Hx Emotional Abuse: No Hx Physical Abuse: No Hx Substance Use: No - SURGICAL HISTORY Hx Surgeries: Yes Hx Breast Biopsy: Yes (Right breast as daughter.) Other/Comment: BACK SURGERY;RIGHT HAND SURGERY;RIGHT FOOT. EPIDURAL - ANESTHESIA Hx Anesthesia: Yes Hx Anesthesia Reactions: No Hx Malignant Hyperthermia: No Has any member of the family had a problem w/ anesthesia?: No Meds Home Medications: Home Medication List Medication Instructions Recorded Confirmed Type Warfarin [Coumadin] 2.5 mg PO 1800 #4 tab 10/31/17 Rx Allergies/Adverse Reactions: Allergies Allergy/AdvReac Type Severity Reaction Status Date / Time aspirin Allergy VOMITING Verified 10/30/17 12:25 olive oil Allergy SWELLING Verified 05/30/17 15:27 - Medications Medications: Current Medications Hydrochlorothiazide (Microzide) 12.5 mg PO DAILY [facility] Last Admin: 10/31/17 09:49 Dose: 12.5 mg Lisinopril (Zestril) 10 mg PO DAILY [facility] Last Admin: 10/31/17 09:50 Dose: 10 mg Metformin HCl (Glucophage) 850 mg PO BID [facility] Last Admin: 10/31/17 09:49 Dose: 850 mg Pravastatin Sodium (Pravachol) 20 mg PO [facility] Physical Exam - Head Exam Head Exam: ATRAUMATIC - Eye Exam Eye Exam: Normal appearance - ENT Exam ENT Exam: Mucous Membranes Dry - Respiratory Exam Respiratory Exam: NORMAL BREATHING PATTERN - Cardiovascular Exam Cardiovascular Exam: +S1, +S2 - GI/Abdominal Exam GI & Abdominal Exam: Normal Bowel Sounds - Extremities Exam Extremities exam: Positive for: normal inspection - Neurological Exam Neurological exam: Oriented x3 - Psychiatric Exam Psychiatric exam: Normal Affect, Normal Mood - Skin Skin Exam: Warm Results - Vital Signs Recent Vital Signs: Last Vital Signs Temp 97.6 F 10/31/17 08:00 Pulse 75 10/31/17 08:00 Resp 18 10/31/17 08:00 BP 108/62 10/31/17 09:50 Pulse Ox 95 10/31/17 08:00 - Labs Result Diagrams: 10/30/17 13:23 10/30/17 13:23 Labs: Laboratory Results - last 24 hr 10/30/17 10/30/17 10/30/17 13:23 13:23 13:23 WBC 6.7 RBC 5.16 Hgb 14.8 Hct 44.8 MCV 86.8 MCH 28.6 MCHC 33.0 RDW 12.9 Plt Count 112 L D MPV 10.5 Neut % (Auto) 63.2 Lymph % (Auto) 28.4 [place] % (Auto) 6.5 Eos % (Auto) 1.5 Baso % (Auto) 0.4 Neut # 4.3 Lymph # 1.9 [place] # 0.4 Eos # 0.1 Baso # 0.0 PT 96.7 H* INR 8.3 H APTT 64.6 H Sodium 142 Potassium 4.0 Chloride 100 Carbon Dioxide 33 H Anion Gap 13 BUN 19 H Creatinine 0.7 Est GFR ( Amer) > 60 Est GFR (Non-Af Amer) > 60 Random Glucose 125 H Calcium 10.4 H Total Bilirubin 0.4 AST 22 ALT 25 Alkaline Phosphatase 62 Total Protein 6.6 Albumin 3.8 Globulin 2.8 Albumin/Globulin Ratio 1.3 10/31/17 08:30 WBC RBC Hgb Hct MCV MCH MCHC RDW Plt Count MPV Neut % (Auto) Lymph % (Auto) [place] % (Auto) Eos % (Auto) Baso % (Auto) Neut # Lymph # [place] # Eos # Baso # PT 29.1 H D INR 2.6 H D APTT Sodium Potassium Chloride Carbon Dioxide Anion Gap BUN Creatinine Est GFR ( Amer) Est GFR (Non-Af Amer) Random Glucose Calcium Total Bilirubin AST ALT Alkaline Phosphatase Total Protein Albumin Globulin Albumin/Globulin Ratio Assessment & Plan (1) Coumadin toxicity Assessment and Plan: no bleeding s/p vit k po, coumadin on hold repeat INR Status: Acute (2) Elevated INR (international normalized ratio) due to prior anticoagulant medication ingestion Assessment and Plan: anticoagulation on hold s/p vit k Status: Acute (3) Thrombocytopenia Assessment and Plan: mild no interevention Thank you for this interesting consult. Status: Acute
[2017-10-31 16:11] VITALS: BP 122/71; PULSE 90; RESP 14; TEMP 98.2; O2SAT 96
--- NOTE | 2017-10-31 19:12 | CP.PCM.HP ---
History of Present Illness - History of Present Illness History of Present Illness: 82 yo admitted for coumadin toxicity Present on Admission - Present on Admission Any Indicators Present on Admission: No Past Patient History - Infectious Disease Hx of Infectious Diseases: None - Past Medical History & Family History Past Medical History?: Yes - Past Social History Smoking Status: Never Smoked - CARDIAC Hx Cardiac Disorders: Yes Hx Hypercholesterolemia: Yes Hx Hypertension: Yes - PULMONARY Hx Respiratory Disorders: No - NEUROLOGICAL Hx Neurological Disorder: Yes HX Cerebrovascular Accident: Yes - HEENT Hx HEENT Problems: No - RENAL Hx Chronic Kidney Disease: No - ENDOCRINE/METABOLIC Hx Endocrine Disorders: Yes Hx Diabetes Mellitus Type 2: Yes Hx Hypothyroidism: No - HEMATOLOGICAL/ONCOLOGICAL Hx Blood Disorders: No Hx Blood Transfusion Reaction: No - INTEGUMENTARY Hx Dermatological Problems: No - MUSCULOSKELETAL/RHEUMATOLOGICAL Hx Musculoskeletal Disorders: No Hx Arthritis: No Hx Falls: No Hx Rheumatoid Arthritis: No - GASTROINTESTINAL Hx Gastrointestinal Disorders: No - GENITOURINARY/GYNECOLOGICAL Hx Genitourinary Disorders: No - PSYCHIATRIC Hx Psychophysiologic Disorder: No Hx Emotional Abuse: No Hx Physical Abuse: No Hx Substance Use: No - SURGICAL HISTORY Hx Surgeries: Yes Hx Breast Biopsy: Yes (Right breast as daughter.) Other/Comment: BACK SURGERY;RIGHT HAND SURGERY;RIGHT FOOT. EPIDURAL - ANESTHESIA Hx Anesthesia: Yes Hx Anesthesia Reactions: No Hx Malignant Hyperthermia: No Has any member of the family had a problem w/ anesthesia?: No Meds Home Medications: Home Medication List Medication Instructions Recorded Confirmed Type Warfarin [Coumadin] 2.5 mg PO 1800 #4 tab 10/31/17 Rx Allergies/Adverse Reactions: Allergies Allergy/AdvReac Type Severity Reaction Status Date / Time aspirin Allergy VOMITING Verified 10/30/17 12:25 olive oil Allergy SWELLING Verified 05/30/17 15:27 Physical Exam - Respiratory Exam Respiratory Exam: NORMAL BREATHING PATTERN - Cardiovascular Exam Cardiovascular Exam: REGULAR RHYTHM - GI/Abdominal Exam GI & Abdominal Exam: Normal Bowel Sounds Results - Vital Signs Recent Vital Signs: Last Vital Signs Temp 98.2 F 10/31/17 16:10 Pulse 90 10/31/17 16:10 Resp 14 10/31/17 16:10 BP 122/71 10/31/17 16:10 Pulse Ox 96 10/31/17 16:10 - Labs Result Diagrams: 10/30/17 13:23 10/30/17 13:23 Labs: Laboratory Results - last 24 hr 10/31/17 08:30 PT 29.1 H D INR 2.6 H D Assessment & Plan - Assessment and Plan (Free Text) Assessment: Elevated INR/ Coumadin toxicity Hematology Hx CVA ?? 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
[2017-10-31] MEDS ORDERED: Pravastatin Sodium 20 MG TAB PO SCH (22:00)
== END 2017-10-31 17:16 | disposition home or self-care (01) ==
LOC: H.ER 11:58 → H.ERHOLD 16:18 → H.TEL 22:17
PROVIDERS: ADMIT Family Medicine Geriatric Medicine; ATTEND Family Medicine Geriatric Medicine
DX: R89.2 Abnormal level of other drugs, medicaments and biological substances in specimens from other organs, systems and tissues (principal); T45.515A Adverse effect of anticoagulants, initial encounter; E11.9 Type 2 diabetes mellitus without complications; I10 Essential (primary) hypertension; Z86.73 Personal history of transient ischemic attack (TIA), and cerebral infarction without residual deficits; D69.6 Thrombocytopenia, unspecified; Z88.6 Allergy status to analgesic agent; Z91.018 Allergy to other foods; J45.909 Unspecified asthma, uncomplicated; I48.91 Unspecified atrial fibrillation; J44.9 Chronic obstructive pulmonary disease, unspecified; E78.00 Pure hypercholesterolemia, unspecified
CPT/HCPCS: 36415; 80053; 85025; 85610; 85730; 99285; G0378

== ENCOUNTER 2018-01-28 07:55 | Emergency (ER) | payer MEDICARE ==
[2018-01-28 08:01] VITALS: BMI 39.3
[2018-01-28 09:48] LABS: BASO % 0.6 % (0.0-2.0); EOS # 0.1 K/uL (0.0-0.7); EOS % 2.1 % (0.0-4.0); LYMPH # 1.5 K/uL (1.0-4.3); LYMPH % 26.3 % (20.0-40.0); MEAN CELL VOLUME 87.5 fl (81.0-99.0); MEAN CORPUSCULAR HEMOGLOBIN 29.7 pg (27.0-31.0); MEAN CORPUSCULAR HGB CONC 33.9 g/dL (33.0-37.0); MEAN PLATELET VOLUME 9.7 fl (7.2-11.7); MONO # 0.4 K/uL (0.0-0.8); MONO % 6.7 % (0.0-10.0); NEUT # 3.8 K/uL (1.8-7.0); NEUT % 64.3 % (50.0-75.0); NRBC % 0.1 % (0.0-0.0); RBC 4.72 Mil/uL (3.80-5.20); RED CELL DISTRIBUTION WIDTH 13.1 % (11.5-14.5); WHITE BLOOD COUNT 5.8 K/uL (4.8-10.8)
--- NOTE | 2018-01-28 09:50 | ED PDOC ---
HPI: Nose Bleed Time Seen by Provider: 01/28/18 08:08 Chief Complaint (Nursing): ENT Problem Chief Complaint (Provider): Nose Bleed History Per: Patient Onset/Duration Of Symptoms: Hrs Current Symptoms Are (Timing): Still Present Additional Complaint(s): 83 y/o female with a history of atrial fibrillation, myelodysplastic syndrome, and DM presents to the Ed with a nose bleed. Patient states she had two episodes of a nose bleed prior to arrival at 1:30 and 7:30 AM. She claims they were spontaneous and upon arrival had no active bleeding. Patient states she feels fine now. Of note, she is taking zolota. PMD:None provided Past Medical History Reviewed: Historical Data, Nursing Documentation, Vital Signs Vital Signs: Last Vital Signs Temp 97.8 F 01/28/18 08:01 Pulse 110 H 01/28/18 08:01 Resp 18 01/28/18 08:01 BP 165/85 H 01/28/18 08:01 Pulse Ox 96 01/28/18 08:01 - Medical History PMH: Asthma, Atrial Fibrillation (new onset), COPD, CVA, Diabetes, HTN, Hypercholesterolemia Denies: Arthritis, CHF, Hypothyroidism, Chronic Kidney Disease, Rheumatoid Arthritis - Surgical History Surgical History: No Surg Hx - Family History Family History: States: Unknown Family Hx - Social History Current smoker - smoking cessation education provided: No Ex-Smoker (has not smoked in the last 12 months): No Alcohol: None Drugs: Denies - Home Medications Home Medications: Ambulatory Orders Medication Instructions Recorded hydroCHLOROthiazide [Microzide] 12.5 mg PO DAILY 03/24/15 Lisinopril 10 mg PO DAILY 11/23/15 metFORMIN [glucOPHAGE] 850 mg PO BID 12/07/15 Simvastatin 10 mg PO HS 05/30/17 Warfarin [Coumadin] 2.5 mg PO 1800 #4 tab 10/31/17 - Allergies Allergies/Adverse Reactions: Allergies Allergy/AdvReac Type Severity Reaction Status Date / Time aspirin Allergy VOMITING Verified 10/30/17 12:25 olive oil Allergy SWELLING Verified 05/30/17 15:27 Review of Systems ROS Statement: Except As Marked, All Systems Reviewed And Found Negative ENT: Positive for: Other (nose bleed) Physical Exam - Reviewed Nursing Documentation Reviewed: Yes Vital Signs Reviewed: Yes - Physical Exam Appears: Positive for: Well, Non-toxic, No Acute Distress Head Exam: Positive for: ATRAUMATIC, NORMAL INSPECTION, NORMOCEPHALIC Skin: Positive for: Normal Color, Warm, Dry Eye Exam: Positive for: EOMI, Normal appearance, PERRL ENT: Positive for: Normal ENT Inspection Neck: Positive for: Normal, Painless ROM, Supple Cardiovascular/Chest: Positive for: Regular Rate, Rhythm. Negative for: Murmur Respiratory: Positive for: Normal Breath Sounds. Negative for: Respiratory Distress Gastrointestinal/Abdominal: Positive for: Normal Exam, Soft Back: Positive for: Normal Inspection. Negative for: L CVA Tenderness, R CVA Tenderness, Vertebral Tenderness Extremity: Positive for: Normal ROM. Negative for: Pedal Edema, Deformity Neurologic/Psych: Positive for: Alert, Oriented (x3). Negative for: Motor/ Sensory Deficits - Laboratory Results Result Diagrams: 01/28/18 09:41 01/28/18 09:41 - ECG O2 Sat by Pulse Oximetry: 96 (RA) Pulse Ox Interpretation: Normal Medical Decision Making Medical Decision Making: Time: 8:01 Initial Impression: Nose bleed resolved Initial Plan: * CMP * Partial Thromboplastin Time * Prothrombin Time 11:40 Lab results normal. No nose bleed. Out patient follow-up. 11:[address] Miller Scribe Attestation: Documented by Pasha Bridges acting as a scribe for Michele Yang MD. Scribe Attestation: All medical record entries made by the Scribe were at my direction and personally dictated by me. I have reviewed the chart and agree that the record accurately reflects my personal performance of the history, physical exam, medical decision making, and the department course for this patient. I have also personally directed, reviewed, and agree with the discharge instructions and disposition. Disposition - Clinical Impression Clinical Impression: Epistaxis - Disposition Referrals: [facility] [Outside] Trevon Villanueva MD [Staff Provider] - Condition: IMPROVED Additional Instructions: follow up with your primary doctor in 1-2 days follow up with ENT if bleeding resumes return to the ED with any worsening or concerning symptoms Instructions: Nosebleeds Forms: [facility] (Frisian)
[2018-01-28 09:57] LABS: INR 1.2 (0.9-1.2); PARTIAL THROMBOPLASTIN TIME 33.5 Seconds (25.6-37.1); PROTHROMBIN TIME 13.5 Seconds (9.8-13.1)
[2018-01-28 10:03] LABS: ALB/GLOB RATIO 1.2 (1.0-2.1); ALBUMIN 3.3 g/dL (3.5-5.0); ALT/SGPT 34 U/L (9-52); AST/SGOT 18 U/L (14-36); BLOOD UREA NITROGEN 14 mg/dl (7-17); CALCIUM 9.7 mg/dL (8.4-10.2); GFR AFRICAN-AMERICAN > 60; GFR NON-AFRICAN AMERICAN > 60
[2018-01-28 11:53] VITALS: BP 156/79; PULSE 98; RESP 19; TEMP 97.6
[2018-01-28 11:54] VITALS: O2SAT 96
== END 2018-01-28 11:54 | disposition home or self-care (01) ==
LOC: H.ER 07:55
DX: R04.0 Epistaxis (principal); D46.9 Myelodysplastic syndrome, unspecified; E11.9 Type 2 diabetes mellitus without complications; Z79.01 Long term (current) use of anticoagulants; Z79.84 Long term (current) use of oral hypoglycemic drugs; Z86.73 Personal history of transient ischemic attack (TIA), and cerebral infarction without residual deficits; E78.00 Pure hypercholesterolemia, unspecified; I10 Essential (primary) hypertension

== ENCOUNTER 2018-03-06 06:43 | Day surgery (SDC) | payer MEDICARE ==
[2018-03-05 10:49] VITALS: BMI 40.4
[2018-03-06] MEDS ORDERED: MethylPREDNISolone Depo 40 mg/ml Inj ONE (08:41)
[2018-03-06] MEDS ORDERED: Iohexol 300 10 ML ONE (08:41)
[2018-03-06] MEDS ORDERED: Bupivacaine HCl 0.25% PF (10 ml) Inj ONE (08:42)
[2018-03-06] MEDS ORDERED: Lidocaine 2% Inj (20ml) ONE (08:44)
[2018-03-06] MEDS ORDERED: Midazolam 2 MG/2 ML VIAL ONE (09:05)
[2018-03-06] MEDS ORDERED: Lactated Ringer's 1,000 ML IV ONE (11:30)
--- NOTE | 2018-03-06 11:58 | OP ---
PROCEDURE DATE: 03/06/2018 PREOPERATIVE DIAGNOSIS: Lumbar radiculopathy. POSTOPERATIVE DIAGNOSIS: Lumbar radiculopathy. PROCEDURE: Bilateral L4-L5 and L5-S1 transforaminal epidural steroid injection. SURGEON: Krystyna Yepez MD ANESTHESIOLOGIST: Dr. Carey. TYPE OF ANESTHESIA: Monitored anesthesia care. COMPLICATIONS: None. SPECIMEN: None. DESCRIPTION OF PROCEDURE: As follows. After we had discussion of the procedure with the patient including its risks, benefits, alternative, outcome data, possibility of no effect or increased pain, the patient consented to the procedure. She has stopped Xarelto Friday for more than 3 days since the last dose. Decision was then made to proceed to the OR. The patient was placed on a fluoroscopy table in a prone position with 2 pillows underneath her abdomen. The back was prepped and draped in the usual sterile fashion and sterile technique was adhered to during the entire procedure. For the purpose of this injection, the left vertebral body, which was partially sacralized L5 vertebrae. The procedure was first performed on the right side by turning the fluoroscopy towards the right at approximately 20 degrees. The skin overlying the 6 o'clock position of both pedicles at the L4 and L5 level was infiltrated with 1% lidocaine using 25-gauge needle. Subsequently, a 22-gauge 3.5-inch spinal needle was then incrementally advanced under fluoroscopic guidance until tip of the needle rest in the intravertebral foramen. After satisfactory position of both needles, approximately 0.5 mL of Isovue contrast was injected showing appropriate epidural nerve root spread without any signs of CSF or intravenous involvement. At this point, approximately 3 mL of 0.25% Marcaine and Depo-Medrol mixture was injected. The needle was then removed and the same exact procedure was performed on the contralateral left side using the same medications and techniques. At the end of the case, the patient's back was cleaned and dried, and bandages were applied. The patient was then transferred to recovery area in good condition without any signs of NET FINISHER toxicity or any neurological deficits. She will follow up in our office in approximately 2 to 4 weeks. She may resume Xarelto tomorrow. En-Slim Yepez MD [facility] # [id number]
--- NOTE | 2018-03-06 12:55 | RAD ---
PROCEDURE: Fluoroscopy up to 1 hr. HISTORY: PAIN MANAGEMENT COMPARISON: None TECHNIQUE: Standard protocol for this study/examination. FINDINGS: Total fluoroscopic time (continuous mode) utilized during the procedure 62.6 (seconds). Total exam DLP: (mGy) 48.16 IMPRESSION: Less than 1 hr fluoroscopic time utilized during performance of the procedure.
[2018-03-06 12:59] VITALS: BP 145/78; PULSE 82; RESP 18; TEMP 97.8; O2SAT 97
== END 2018-03-06 12:45 | disposition home or self-care (01) ==
LOC: H.OPSURG 06:43
PROVIDERS: ATTEND Anesthesiology
DX: M54.16 Radiculopathy, lumbar region (principal); I48.91 Unspecified atrial fibrillation; E11.9 Type 2 diabetes mellitus without complications; E78.5 Hyperlipidemia, unspecified; I10 Essential (primary) hypertension; I69.351 Hemiplegia and hemiparesis following cerebral infarction affecting right dominant side; M19.90 Unspecified osteoarthritis, unspecified site
CPT/HCPCS: 64483; 64484; 82948; J1030; J2250; J3010; J7120; Q9967

== ENCOUNTER 2018-10-09 14:47 | Emergency (ER) | payer MEDICARE ==
[2018-10-09 14:47] VITALS: BMI 40.4
[2018-10-09 15:08] VITALS: O2SAT 95
[2018-10-09 16:06] LABS: BASO % 0.5 % (0.0-2.0); EOS # 0.1 K/uL (0.0-0.7); EOS % 1.6 % (0.0-4.0); HEMOGLOBIN 14.1 g/dL (12.0-16.0); LYMPH # 1.7 K/uL (1.0-4.3); LYMPH % 21.6 % (20.0-40.0); MEAN CELL VOLUME 88.8 fl (81.0-99.0); MEAN CORPUSCULAR HEMOGLOBIN 30.1 pg (27.0-31.0); MEAN PLATELET VOLUME 10.1 fl (7.2-11.7); MONO # 0.6 K/uL (0.0-0.8); MONO % 8.3 % (0.0-10.0); NEUT # 5.3 K/uL (1.8-7.0); NRBC % 0.1 % (0.0-0.0); RBC 4.67 Mil/uL (3.80-5.20); RED CELL DISTRIBUTION WIDTH 13.1 % (11.5-14.5); WHITE BLOOD COUNT 7.8 K/uL (4.8-10.8)
[2018-10-09 16:14] LABS: ALB/GLOB RATIO 1.3 (1.0-2.1); ALBUMIN 3.8 g/dL (3.5-5.0); BLOOD UREA NITROGEN 24 mg/dl (7-17); CALCIUM 10.3 mg/dL (8.4-10.2); GFR NON-AFRICAN AMERICAN > 60
[2018-10-09 16:15] LABS: ALT/SGPT 16 U/L (9-52); AST/SGOT 20 U/L (14-36)
[2018-10-09 16:16] LABS: INR 1.2; PROTHROMBIN TIME 13.1 Seconds (9.8-13.1)
[2018-10-09 16:19] LABS: PARTIAL THROMBOPLASTIN TIME 32.4 Seconds (25.6-37.1)
--- NOTE | 2018-10-09 16:26 | ED PDOC ---
HPI: Neurologic - General Time Seen by Provider: 10/09/18 15:24 Chief Complaint (Nursing): Headache Chief Complaint (Provider): Neck Pain and Headache Source: patient Exam Limitations: no limitations - History of Present Illness Timing/Duration: other (yesterday) Allergies/Adverse Reactions: Allergies aspirin Allergy (Verified 10/09/18 15:06) VOMITING olive oil Allergy (Verified 10/09/18 15:06) SWELLING and vomiting Home Medications: Ambulatory Orders RX: Lisinopril 10 mg PO DAILY 11/23/15 RX: metFORMIN [glucOPHAGE] 850 mg PO BID 12/07/15 RX: Simvastatin 10 mg PO HS 05/30/17 Rivaroxaban [Xarelto] 10 mg PO DAILY 03/05/18 RX: hydroCHLOROthiazide [Microzide] 12.5 mg PO DAILY 03/06/18 Cyclobenzaprine [Flexeril] 5 mg PO Q8 PRN #10 tab 10/09/18 Lidocaine 5% [Lidoderm] 1 ea TD DAILY PRN #10 patch 10/09/18 Additional Complaint(s): 83 year old [place] woman with a history of HTN, high cholesterol, atrial fibrillation and stroke presents to the ED for an evaluation of pain to the p osterior head and neck onset yesterday. Patient states the pain radiates down to her shoulder and arm and worsens when she turns her head to the right, shrugs her right shoulder or bends her neck. She reports she has a history of right arm weakness due to stroke. Patient took Tylenol and Tramadol without any relief. Otherwise, patient denies any new numbness or weakness to the right upper extremity, difficulty with speech or gait, heavy lifting and no trauma. PMD: Dr. Jeff Past Medical History Reviewed: Historical Data, Nursing Documentation, Vital Signs Vital Signs: Last Vital Signs Temp 97.3 F L 10/09/18 15:06 Pulse 93 H 10/09/18 15:06 Resp 18 10/09/18 15:06 BP 164/90 H 10/09/18 15:06 Pulse Ox 95 10/09/18 15:06 - Medical History PMH: Arthritis (general), Asthma, Atrial Fibrillation (new onset), Cardia Arrhythmia (A-fib), COPD, CVA, Diabetes, HTN, Hypercholesterolemia Denies: CHF, Hypothyroidism, Chronic Kidney Disease, Rheumatoid Arthritis - Family History Family History: States: Unknown Family Hx - Social History Current smoker - smoking cessation education provided: No Alcohol: None Drugs: Denies - Home Medications Home Medications: Ambulatory Orders Medication Instructions Recorded RX: Lisinopril 10 mg PO DAILY 11/23/15 RX: metFORMIN [glucOPHAGE] 850 mg PO BID 12/07/15 RX: Simvastatin 10 mg PO HS 05/30/17 Rivaroxaban [Xarelto] 10 mg PO DAILY 03/05/18 RX: hydroCHLOROthiazide [Microzide] 12.5 mg PO DAILY 03/06/18 Cyclobenzaprine [Flexeril] 5 mg PO Q8 PRN #10 tab 10/09/18 Lidocaine 5% [Lidoderm] 1 ea TD DAILY PRN #10 patch 10/09/18 - Allergies Allergies/Adverse Reactions: Allergies Allergy/AdvReac Type Severity Reaction Status Date / Time aspirin Allergy VOMITING Verified 10/09/18 15:06 olive oil Allergy SWELLING Verified 10/09/18 15:06 Review of Systems ROS Statement: Except As Marked, All Systems Reviewed And Found Negative (As per HPI, otherwise negative) Constitutional: Negative for: Other (trauma) Musculoskeletal: Positive for: Neck Pain Neurological: Positive for: Headache. Negative for: Weakness, Numbness, Other (difficulty with speech or gait) Physical Exam - Reviewed Nursing Documentation Reviewed: Yes Vital Signs Reviewed: Yes - Physical Exam Appears: Positive for: In Acute Distress Head Exam: Positive for: ATRAUMATIC, NORMOCEPHALIC. Negative for: NORMAL INSPECTION (head is held in stiff extension) Skin: Positive for: Warm, Dry Eye Exam: Positive for: EOMI, PERRL ENT: Positive for: Normal ENT Inspection Neck: Positive for: Painless ROM, Supple Cardiovascular/Chest: Positive for: Regular Rate, Rhythm. Negative for: Murmur Respiratory: Positive for: Normal Breath Sounds. Negative for: Respiratory Distress Gastrointestinal/Abdominal: Positive for: Soft. Negative for: Tenderness Back: Negative for: Normal Inspection (tenderness to palpation of the right ce rvical spine, paraspinal muscle, right trapezius muscle with spasm ) Neurologic/Psych: Positive for: Alert, Oriented (x3), Motor/Sensory Deficits (Right upper extremity no focal deficit). Negative for: Aphasia, Facial Droop - Laboratory Results Result Diagrams: 10/09/18 15:59 10/09/18 15:59 - ECG O2 Sat by Pulse Oximetry: 95 (RA) Pulse Ox Interpretation: Normal Medical Decision Making Medical Decision Making: Time: 1535 Initial Impression: neck pain and headache Differential Diagnosis: muscle spasm, cervical spine sprain, herniated disc with intracranial hemorrhage less likely given musculoskeletal condition, cervical lymphadenopathy Initial Plan: BBK type and screen Cervical spine w/o contrast [CT] Head w/o contrast [CT] CMP Magnesium Phosphorus CBC w/ Differential Prothrombin Time Partial Thromboplastin Time [COAG] Glucose , POC, Blood Acetaminophen 975mg Valium 5mg IV Insertion Reevaluation Dr. Jeff in ER to evaluate patient and agrees with assessment and plan. Time:1644 CT HEAD RESULTS FINDINGS: HEMORRHAGE: No acute parenchymal, subarachnoid or extra-axial hemorrhage.. BRAIN: No moderate diffuse/confluent chronic periventricular white matter ischemic changes seen extending peripherally into the deep and subcortical white matter both cerebral hemispheres. Additionally, there are numerous more discrete chronic appearing infarcts scattered about the deep and subcortical white matter as well as both basal nuclei and probably brainstem. Note that the possibility of a small hyperacute infarct cannot be excluded on this exam. Moderate generalized volume loss. No obvious parenchymal nor extra-axial mass or collection seen on this noncontrast exam. Vascular calcifications both carotid siphons. VENTRICLES: No obstructive hydrocephalus. CALVARIUM: Unremarkable. PARANASAL SINUSES: Minor mucosal thickening seen within few ethmoid air cells extending superiorly into the frontal sinus. MASTOID AIR CELLS: Unremarkable as visualized. No inflammatory changes. OTHER FINDINGS: Changes of bilateral cataract surgery. IMPRESSION: No acute intracranial hemorrhage. Moderate chronic white matter ischemic changes with scattered chronic bilateral basal nuclei and brainstem lacunar type infarcts. Moderate generalized volume loss. Time: 165 CT CERVICAL SPINE RESULTS FINDINGS: VERTEBRAE: The vertebral bodies are maintained in height. The transverse processes and posterior elements are intact. The atlantoaxial articulation and odontoid process are intact. Normal alignment is maintained. There is straightening of the normal lordotic curvature indicating possible muscular spasm. DISCS/SPINAL CANAL/NEURAL FORAMINA: There is narrowing of the C3-4 through C7-T1 disc spaces consistent with diffuse degenerative disc disease. Mild to moderate multilevel foraminal stenosis is noted bilaterally. No significant central spinal stenosis is appreciated. PARASPINAL SOFT TISSUES: Unremarkable. OTHER FINDINGS: None. IMPRESSION: No fracture/dislocation. Possible muscular spasm. Diffuse degenerative disc disease. - Scribe Attestation: Documented by Godfrey Sousa, acting as a scribe for Brit Ramirez MD Provider Scribe Attestation: All medical record entries made by the Scribe were at my direction and persona lly dictated by me. I have reviewed the chart and agree that the record accurately reflects my personal performance of the history, physical exam, medical decision making, and the department course for this patient. I have also personally directed, reviewed, and agree with the discharge instructions and disposition. Time: 1819 -- Labs demonstrate low magnesium otherwise no significant abnormality. On re-evaluation, patient reports of feeling slightly better with Tylenol and Valium. Discussed with patient and family findings and plan of care. Patient given IV morphine, topical lidoderm and IV magnesium ordered. Patient is stable for discharge home. -- Magnesium 2 gm in 50 ml IVPB -- Lidoderm 1 ea TD -- Morphine 2 mg IVP Time: 1921 -- Discussed with Dr. Jeff findings and follow up for further management. Scribe Attestation: Documented by Yajaira José, acting as a scribe for Brit Ramirez MD. Provider Scribe Attestation: All medical record entries made by the Scribe were at my direction and personally dictated by me. I have reviewed the chart and agree that the record accurately reflects my personal performance of the history, physical exam, medical decision making, and the department course for this patient. I have also personally directed, reviewed, and agree with the discharge instructions and disposition. Disposition - Clinical Impression Clinical Impression: Neck pain, Degenerative disc disease, cervical, Cervical radiculopathy - Disposition Referrals: Willy Hudson MD [Staff Provider] - 10/12/18 Disposition: Routine/Home Disposition Time: 19:00 Condition: IMPROVED Additional Instructions: CONTINUE TYLENOL EXTRA STRENGTH (2 TABLETS EVERY 6 HOURS) FOR PAIN FOLLOW UP WITH DR HUDSON NEXT WEEK Prescriptions: Cyclobenzaprine [Flexeril] 5 mg PO Q8 PRN #10 tab PRN Reason: muscle spasm Lidocaine 5% [Lidoderm] 1 ea TD DAILY PRN #10 patch PRN Reason: PAIN Instructions: Radiculopathy (DC), Degenerative Disc Disease (DC), Generalized Neck Pain (DC)
--- NOTE | 2018-10-09 16:33 | CP.PCM.PN ---
Subjective - Date & Time of Evaluation Date of Evaluation: 10/09/18 Time of Evaluation: 22:22 - Subjective Subjective: 83 yo with hx of CVA Afib on xarelto presents to the ER with severe R occipital headache/ pain Objective - Vital Signs/Intake and Output Vital Signs (last 24 hours): Temp Pulse Resp BP Pulse Ox 97.3 F L 93 H 18 164/90 H 95 10/09/18 15:06 10/09/18 15:06 10/09/18 15:06 10/09/18 15:06 10/09/18 16:30 - Labs Labs: 10/09/18 15:59 10/09/18 15:59 PT 13.1 Seconds (9.8-13.1) 10/09/18 15:59 INR 1.2 10/09/18 15:59 APTT 32.4 Seconds (25.6-37.1) 10/09/18 15:59 - Respiratory Exam Respiratory Exam: NORMAL BREATHING PATTERN - Cardiovascular Exam Cardiovascular Exam: REGULAR RHYTHM - GI/Abdominal Exam GI & Abdominal Exam: Normal Bowel Sounds Assessment and Plan - Assessment and Plan (Free Text) Assessment: R occipital headache/ pain hx of CVA Afib on xarelto CT scan Labs
--- NOTE | 2018-10-09 16:48 | CT ---
Date of service: 10/09/2018 PROCEDURE: CT HEAD WITHOUT CONTRAST. HISTORY: headache right sided COMPARISON: Made with prior CT scan brain dated 05/30/2017. Comparison also made with prior MRI brain 05/31/2017. TECHNIQUE: Axial computed tomography images were obtained through the head/brain without intravenous contrast. Radiation dose: Total exam DLP = 795.88 mGy-cm. This CT exam was performed using one or more of the following dose reduction techniques: Automated exposure control, adjustment of the mA and/or kV according to patient size, and/or use of iterative reconstruction technique. FINDINGS: HEMORRHAGE: No acute parenchymal, subarachnoid or extra-axial hemorrhage.. BRAIN: No moderate diffuse/confluent chronic periventricular white matter ischemic changes seen extending peripherally into the deep and subcortical white matter both cerebral hemispheres. Additionally, there are numerous more discrete chronic appearing infarcts scattered about the deep and subcortical white matter as well as both basal nuclei and probably brainstem. Note that the possibility of a small hyperacute infarct cannot be excluded on this exam. Moderate generalized volume loss. No obvious parenchymal nor extra-axial mass or collection seen on this noncontrast exam. Vascular calcifications both carotid siphons. VENTRICLES: No obstructive hydrocephalus. CALVARIUM: Unremarkable. PARANASAL SINUSES: Minor mucosal thickening seen within few ethmoid air cells extending superiorly into the frontal sinus. MASTOID AIR CELLS: Unremarkable as visualized. No inflammatory changes. OTHER FINDINGS: Changes of bilateral cataract surgery. IMPRESSION: No acute intracranial hemorrhage. Moderate chronic white matter ischemic changes with scattered chronic bilateral basal nuclei and brainstem lacunar type infarcts. Moderate generalized volume loss.
--- NOTE | 2018-10-09 16:54 | CT ---
Date of service: 10/09/2018 PROCEDURE: CT Cervical Spine without contrast HISTORY: neck pain COMPARISON: None available. TECHNIQUE: Axial computed tomography images were obtained of the cervical spine without the use of intravenous contrast. Coronal and sagittal reformatted images were created and reviewed. Radiation dose: Total exam DLP = 364.3 mGy-cm. This CT exam was performed using one or more of the following dose reduction techniques: Automated exposure control, adjustment of the mA and/or kV according to patient size, and/or use of iterative reconstruction technique. FINDINGS: VERTEBRAE: The vertebral bodies are maintained in height. The transverse processes and posterior elements are intact. The atlantoaxial articulation and odontoid process are intact. Normal alignment is maintained. There is straightening of the normal lordotic curvature indicating possible muscular spasm. DISCS/SPINAL CANAL/NEURAL FORAMINA: There is narrowing of the C3-4 through C7-T1 disc spaces consistent with diffuse degenerative disc disease. Mild to moderate multilevel foraminal stenosis is noted bilaterally. No significant central spinal stenosis is appreciated. PARASPINAL SOFT TISSUES: Unremarkable. OTHER FINDINGS: None. IMPRESSION: No fracture/dislocation. Possible muscular spasm. Diffuse degenerative disc disease.
[2018-10-09] MEDS ORDERED: Lidocaine 5% Patch TD STA (18:11)
[2018-10-09] MEDS ORDERED: Magnesium Sulfate 2 gm/50 ml 2 GM/50 ML BAG IVPB ONE (18:15)
[2018-10-09] MEDS ORDERED: Lidocaine 5% Patch TD ONE (18:16)
[2018-10-09] MEDS ORDERED: Magnesium Sulfate 2 gm/50 ml 2 GM/50 ML BAG ONE (18:17)
[2018-10-09 19:46] VITALS: BP 143/88; PULSE 86; RESP 22; TEMP 97.4
== END 2018-10-09 19:45 | disposition home or self-care (01) ==
LOC: H.ER 14:47
DX: M54.2 Cervicalgia (principal); M50.30 Other cervical disc degeneration, unspecified cervical region; M54.12 Radiculopathy, cervical region; I10 Essential (primary) hypertension; E11.9 Type 2 diabetes mellitus without complications; Z86.73 Personal history of transient ischemic attack (TIA), and cerebral infarction without residual deficits; J44.9 Chronic obstructive pulmonary disease, unspecified; Z79.84 Long term (current) use of oral hypoglycemic drugs; Z79.01 Long term (current) use of anticoagulants
CPT/HCPCS: 70450; 72125; 80053; 82948; 83735; 84100; 85025; 85610; 85730; 86850; 86900; 96365; 96374; 99285; J2270

== ENCOUNTER 2018-10-11 06:51 | Emergency (ER) | payer MEDICARE ==
[2018-10-11 07:03] VITALS: TEMP 97.5
[2018-10-11 07:04] VITALS: BMI 39.3
--- NOTE | 2018-10-11 07:41 | ED PDOC ---
HPI: Headache Time Seen by Provider: 10/11/18 07:15 Chief Complaint (Nursing): Headache Chief Complaint (Provider): Headache History Per: Patient History/Exam Limitations: no limitations Onset/Duration Of Symptoms: Days Current Symptoms Are (Timing): Still Present Additional Complaint(s): 83 y/o female with a PMHx of Arthritis, Asthma, AFib, HTN, hypercholesterolemia, Cardia Arrhythmia, COPD, CVA and DM presents to the ED for evaluation of head pain and neck pain. Patient reports pain is located in the posterior lower head and the upper neck. Patient states pain worsens with movement. Of note, patient was seen and evaluated here on Friday for the same symptoms and was given Flexeril and a Lidoderm patch to go home on. Patient states she only took one tablet of Flexeril and did not take the second because she did not want to. Patient reports of taking Tylenol instead. Otherwise, patient denies any trauma. PMD: Caleb Dumont Past Medical History Reviewed: Historical Data, Nursing Documentation, Vital Signs Vital Signs: Last Vital Signs Temp 97.5 F L 10/11/18 07:03 Pulse 77 10/11/18 07:03 Resp 18 10/11/18 07:03 BP 142/76 10/11/18 07:03 Pulse Ox 97 10/11/18 07:03 - Medical History PMH: Arthritis (general), Asthma, Atrial Fibrillation (new onset), Cardia Arrhythmia (A-fib), COPD, CVA, Diabetes, HTN, Hypercholesterolemia Denies: CHF, Hypothyroidism, Chronic Kidney Disease, Rheumatoid Arthritis - Surgical History Surgical History: No Surg Hx - Family History Family History: States: Unknown Family Hx - Home Medications Home Medications: Ambulatory Orders Medication Instructions Recorded Lisinopril 10 mg PO DAILY 11/23/15 metFORMIN [glucOPHAGE] 850 mg PO BID 12/07/15 Simvastatin 10 mg PO HS 05/30/17 hydroCHLOROthiazide [Microzide] 12.5 mg PO DAILY 03/06/18 Cyclobenzaprine [Flexeril] 5 mg PO Q8 PRN #10 tab 10/09/18 Lidocaine 5% [Lidoderm] 1 ea TD DAILY PRN #10 patch 10/09/18 Acetaminophen with Codeine 1 tab PO Q6H PRN #10 tab 10/11/18 [Tylenol with Codeine No. 3 300 mg-30 mg] Apixaban [Eliquis] 1 tab PO DAILY 10/14/18 - Allergies Allergies/Adverse Reactions: Allergies Allergy/AdvReac Type Severity Reaction Status Date / Time aspirin Allergy VOMITING Verified 10/14/18 12:37 olive oil Allergy SWELLING Verified 10/14/18 12:37 Review of Systems ROS Statement: Except As Marked, All Systems Reviewed And Found Negative Musculoskeletal: Positive for: Neck Pain, Other (posterior head pain) Physical Exam - Reviewed Nursing Documentation Reviewed: Yes Vital Signs Reviewed: Yes - Physical Exam Appears: Positive for: In Acute Distress (mild, painful) Head Exam: Negative for: NORMAL INSPECTION (tenderness to palpation of the inferior bilateral scalp) Skin: Positive for: Normal Color, Warm, Dry Eye Exam: Positive for: Normal appearance, EOMI Neck: Positive for: Decreased ROM (secondary to pain). Negative for: Normal (Tenderness to palpation of the upper scalp) Cardiovascular/Chest: Positive for: Regular Rate, Rhythm. Negative for: Murmur Respiratory: Positive for: Normal Breath Sounds. Negative for: Respiratory Distress Gastrointestinal/Abdominal: Positive for: Normal Exam, Soft. Negative for: Tenderness Back: Positive for: Normal Inspection. Negative for: L CVA Tenderness, R CVA Tenderness, Vertebral Tenderness Extremity: Positive for: Normal ROM. Negative for: Pedal Edema, Deformity Neurologic/Psych: Positive for: Alert, Oriented. Negative for: Motor/Sensory Deficits - ECG O2 Sat by Pulse Oximetry: 97 (RA) Pulse Ox Interpretation: Normal Medical Decision Making Medical Decision Making: Time: 822 Plan: -- Valium 5 mg PO -- Tylenol 650 mg PO 11:[address] Jeff, agrees with admission, Dr. Yepez for pain management. 11:[address] Yepez, will evaluated in ED. 1220 Nerve block injected by into patient's neck by Dr. Yepez. Since patient is on Eliquis, Dr. Yepez states he is not able to do anymore procedures until Friday. Dr. Yepez recommends discharge home. Dr. Yepez spoke to daughter who agrees with plan. Scribe Attestation: Documented by Yajaira José, acting as a scribe for Terese Blanchard MD. Provider Scribe Attestation: All medical record entries made by the Scribe were at my direction and personally dictated by me. I have reviewed the chart and agree that the record accurately reflects my personal performance of the history, physical exam, medical decision making, and the department course for this patient. I have also personally directed, reviewed, and agree with the discharge instructions and disposition. Disposition - Clinical Impression Clinical Impression: Neck pain - Disposition Referrals: Willy Stinson MD [Primary Care Provider] - Disposition: Routine/Home Disposition Time: 12:21 Condition: IMPROVED Prescriptions: Acetaminophen with Codeine [Tylenol with Codeine No. 3 300 mg-30 mg] 1 tab PO Q6H PRN #10 tab PRN Reason: Pain, Severe (8-10) Instructions: Neck Pain Forms: [employer] (Kinyarwanda)
[2018-10-11] MEDS ORDERED: Bupivacaine HCl 0.5% PF (30 ml) Inj ONE (11:23)
[2018-10-11] MEDS ORDERED: methylPREDNISolone Depo 80 mg/ml Inj ONE (11:23)
[2018-10-11 11:43] VITALS: PULSE 80
--- NOTE | 2018-10-11 11:58 | CP.PCM.CON ---
History of Present Illness - History of Present Illness History of Present Illness: 83 yo woman well known to me from outpatient pain clinic for her low back pain. She's been suffering from neck pain, cervicogenic headache, occipital headache recently. She was imaged on her last ER visit last week. Pain is on the left side currently, from the neck up to the left occipital region. It's sharp, throbbing, constant, worse with movement. She denies nausea, photo/phono sensitivity, visual changes. She does have difficulty turning her neck. R/B/A of the occipital nerve block was explained to the patient, and consent was signed. The skin along left occipital ridge was cleansed with alcohol. A 25G, 1.5-inch needle was used to injecte .5% bupivacaine + 80mg depo-medrol at the area of maximal tenderness and also location medial to the left occipital radial pulse. Patient tolerated procedure well. Past Patient History - Infectious Disease Hx of Infectious Diseases: None - Past Medical History & Family History Past Medical History?: Yes - Past Social History Smoking Status: Never Smoked - CARDIAC Hx Atrial Fibrillation: Yes (new onset) Hx Cardia Arrhythmia: Yes (A-fib) Hx Congestive Heart Failure: No Hx Hypercholesterolemia: Yes Hx Hypertension: Yes - PULMONARY Hx Asthma: Yes Hx Chronic Obstructive Pulmonary Disease (COPD): Yes - NEUROLOGICAL Hx Neurological Disorder: Yes HX Cerebrovascular Accident: Yes (2001) - HEENT Hx HEENT Problems: No - RENAL Hx Chronic Kidney Disease: No - ENDOCRINE/METABOLIC Hx Hypothyroidism: No - HEMATOLOGICAL/ONCOLOGICAL Hx Blood Disorders: No Hx Blood Transfusion Reaction: No - INTEGUMENTARY Hx Dermatological Problems: No Other/Comment: Zoster last month - MUSCULOSKELETAL/RHEUMATOLOGICAL Hx Arthritis: Yes (general) Hx Rheumatoid Arthritis: No - GASTROINTESTINAL Hx Gastrointestinal Disorders: No - GENITOURINARY/GYNECOLOGICAL Hx Genitourinary Disorders: No - PSYCHIATRIC Hx Emotional Abuse: No Hx Physical Abuse: No Hx Substance Use: No - SURGICAL HISTORY Hx Surgeries: Yes Hx Breast Biopsy: Yes (Right breast as per daughter.) Hx Orthopedic Surgery: Yes (lumbar surgery-1997) Other/Comment: cut right hand/stitches need,lump right breast,bunionectomy right foot - ANESTHESIA Hx Anesthesia: Yes Hx Anesthesia Reactions: No Hx Malignant Hyperthermia: No Meds Allergies/Adverse Reactions: Allergies Allergy/AdvReac Type Severity Reaction Status Date / Time aspirin Allergy VOMITING Verified 10/09/18 15:06 olive oil Allergy SWELLING Verified 10/09/18 15:06 Physical Exam - Head Exam Head Exam: ATRAUMATIC, NORMAL INSPECTION Additional comments: TTP over left occipital region. - Neck Exam Neck exam: Positive for: Tenderness Results - Vital Signs Recent Vital Signs: Last Vital Signs Temp 97.5 F L 10/11/18 07:03 Pulse 80 10/11/18 11:25 Resp 20 10/11/18 11:25 BP 123/61 10/11/18 11:25 Pulse Ox 95 10/11/18 11:25 Assessment & Plan (1) Cervical radiculopathy Assessment and Plan: 83 yo woman w/ occipital neuralgia + cervicogenic headache. S/p left occipital nerve block in the ER with partial response. Plan was to admit patient for cervical injection tomorrow, but patient is on Eliquis, last dose yesterday, so that would be not feasible. - patient may be discharged if her pain improves with outpatient follow-up - if pain persists, patient to return to ER on Friday for procedure, patient's daughter has been informed to hold the Eliquis until then Status: Acute
[2018-10-11 12:23] VITALS: O2SAT 97
[2018-10-11 12:49] VITALS: RESP 16
[2018-10-11 12:51] VITALS: BP 124/74
== END 2018-10-11 12:52 | disposition home or self-care (01) ==
LOC: SUPCPDRO 06:51 → H.ER 06:51
DX: M54.12 Radiculopathy, cervical region (principal)
CPT/HCPCS: 99285; J1040

== ENCOUNTER 2018-11-06 11:01 | Day surgery (SDC) | payer MEDICARE ==
[2018-10-14 12:32] VITALS: BMI 39.3
[2018-11-06] MEDS ORDERED: Lactated Ringer's 1,000 ML IV ONE (12:08)
--- NOTE | 2018-11-06 12:26 | CP.SDSHP ---
Same Day Surgery H & P - History Proposed Procedure: Lumbar radiculopathy Pre-Op Diagnosis: bilateral lumbar transforaminal epidural steroid injections - Allergies Allergies: Allergies aspirin Allergy (Verified 11/06/18 11:52) VOMITING olive oil Allergy (Verified 11/06/18 11:52) SWELLING and vomiting - Physical Exam Vital Signs: Vital Signs 11/06/18 11/06/18 11:34 11:41 Temperature 97.4 F L Pulse Rate 82 77 Respiratory 20 Rate Blood Pressure 119/65 O2 Sat by Pulse 95 Oximetry - Impression Impression: LUmbar radiculoapthy Pt. Evaluated Today:Candidate for Anesthesia & Procedure: Yes Short Stay Discharge - Short Stay Discharge Admitting Diagnosis/Reason for Visit: M54.16 Disposition: HOME/ ROUTINE
[2018-11-06] MEDS ORDERED: Iohexol 300 10 ML ONE (12:57)
[2018-11-06] MEDS ORDERED: Lidocaine 1% Inj (20ml) ONE (12:57)
[2018-11-06] MEDS ORDERED: Midazolam 2 MG/2 ML VIAL ONE (14:24)
[2018-11-06] MEDS: MethylPREDNISolone Depo 40 mg/ml Inj ONE ×2 (14:36→14:48)
[2018-11-06] MEDS: Bupivacaine HCl 0.25% PF (30 ml) Inj ONE ×2 (14:37→14:48)
[2018-11-06] MEDS ORDERED: Lactated Ringer's 1,000 ML IV SCH (15:00)
[2018-11-06 16:02] VITALS: PULSE 70
--- NOTE | 2018-11-06 16:49 | RAD ---
Date of service: 11/06/2018 PROCEDURE: Fluoroscopy up to 1 hr. HISTORY: PAIN MANAGEMENT COMPARISON: None TECHNIQUE: Standard protocol for this study/examination. FINDINGS: Total fluoroscopic time (continuous mode) utilized during the procedure 57.5 seconds. Total exam DLP: 41.68 (mGy). IMPRESSION: Less than 1 hr fluoroscopic assistance provided during performance of the procedure.
[2018-11-06 17:14] VITALS: BP 129/72; RESP 18; TEMP 97.6; O2SAT 99
--- NOTE | 2018-11-07 01:43 | OP ---
PROCEDURE DATE: 11/06/2018 PREOPERATIVE DIAGNOSIS: Lumbar radiculopathy. POSTOPERATIVE DIAGNOSIS: Lumbar radiculopathy. PROCEDURE: Bilateral L4-L5, L5-S1 transforaminal epidural steroid injection. ANESTHESIOLOGIST: Rossy Aguilar MD SURGEON: Krystyna Yepez MD ANESTHESIA TYPE: Monitored anesthesia care. COMPLICATIONS: None. SPECIMENS: None. DESCRIPTION OF PROCEDURE: As follows: After we had discussion of the procedure with the patient including its risks, benefits, alternatives, outcome data, possibility of no effect or increased pain, the patient consented to the procedure. She denied any recent infections and has stopped Xarelto for three days prior to today. Decision was then made to proceed to the OR. The patient was placed in a prone position on the fluoroscopy table. The back was prepped and draped in a usual sterile fashion and a sterile technique was adhered to during the entire procedure. The L4 and L5 vertebral levels were first identified on the anterior-posterior view. Angulation towards the right at approximately 20 degrees was used to maximize the visualization of the right L4 and L5 pedicles. The skin overlying the 6 o'clock position of both pedicles was then infiltrated with 1% lidocaine using 25-gauge needle. Subsequently, a 22-gauge 5-inch spinal needle was incrementally advanced under fluoroscopic guidance until tip of the needle walked into the intervertebral foramen. After satisfactory position of both needles, approximately 0.5 mL of Isovue contrast was injected showing appropriate epidural spread. At this point, approximately 3 mL of 0.25% Marcaine and Depo-Medrol mixture was injected. The needle was then removed and same exact procedure was performed on contralateral left side using the same medications and techniques. At the end of the case, the patient's back was cleaned and dry bandages were applied. The patient was then transferred to the recovery area in good condition without any signs of ELECTRICIAN OUTSIDE toxicity or any neurological deficits. She will have a followup in office in approximately two to four weeks. Krystyna Yepez MD
== END 2018-11-06 17:00 | disposition home or self-care (01) ==
LOC: H.OPSURG 11:01
PROVIDERS: ATTEND Anesthesiology
DX: M54.16 Radiculopathy, lumbar region (principal); I48.91 Unspecified atrial fibrillation; Z86.73 Personal history of transient ischemic attack (TIA), and cerebral infarction without residual deficits; E11.9 Type 2 diabetes mellitus without complications; E78.5 Hyperlipidemia, unspecified; I10 Essential (primary) hypertension; E66.9 Obesity, unspecified
CPT/HCPCS: 64483; 64484; 82948; J1030; J2250; J3010; J7120; Q9967

== ENCOUNTER 2019-01-01 06:10 | Day surgery (SDC) | payer MEDICARE ==
[2018-10-14 12:32] VITALS: BMI 39.3
[2019-01-01] MEDS ORDERED: Lactated Ringer's 1,000 ML IV ONE (07:25)
--- NOTE | 2019-01-01 07:46 | CP.SDSHP ---
Same Day Surgery H & P - History Proposed Procedure: Sacroiliac joint injection Pre-Op Diagnosis: Sacroiliitis - Allergies Allergies: Allergies aspirin Allergy (Verified 01/01/19 06:46) VOMITING olive oil Allergy (Verified 01/01/19 06:46) SWELLING and vomiting - Physical Exam Vital Signs: Vital Signs 01/01/19 01/01/19 07:02 07:07 Temperature 97.9 F Pulse Rate 95 H 95 H Respiratory 18 Rate Blood Pressure 128/61 O2 Sat by Pulse 94 L Oximetry Neuro: WNL Heart: WNL Lungs: WNL - Impression Impression: Sacroiliitis Pt. Evaluated Today:Candidate for Anesthesia & Procedure: Yes Short Stay Discharge - Short Stay Discharge Admitting Diagnosis/Reason for Visit: M46.1 Disposition: HOME/ ROUTINE
[2019-01-01] MEDS ORDERED: Midazolam 2 MG/2 ML VIAL ONE (08:18)
[2019-01-01] MEDS ORDERED: Bupivacaine 0.5% Inj(30mL) IJ ONE ×2 (08:29→08:30)
[2019-01-01] MEDS: Iohexol 300 10 ML ONE ×2 (08:29→08:30)
[2019-01-01] MEDS ORDERED: Lidocaine 1% Inj (20ml) IJ ONE (08:29)
[2019-01-01] MEDS: methylPREDNISolone Depo 80 mg/ml Inj ONE ×2 (08:29→08:30)
[2019-01-01] MEDS ORDERED: HYDROmorphone 0.5 mg/0.5 ml ISec IVP PRN (08:41)
[2019-01-01] MEDS ORDERED: Lactated Ringer's 1,000 ML IV SCH (08:45)
[2019-01-01 11:02] VITALS: RESP 20
[2019-01-01 11:57] VITALS: BP 125/64; PULSE 87; TEMP 97.6; O2SAT 95
--- NOTE | 2019-01-01 12:38 | RAD ---
Date of service: 01/01/2019 PROCEDURE: Fluoroscopy up to 1 hr. HISTORY: PAIN MANAGEMENT COMPARISON: None TECHNIQUE: Standard protocol for this study/examination. FINDINGS: Total fluoroscopic time (continuous mode) utilized during the procedure 29.7 seconds. Total exam DLP: 21.87 (mGy). IMPRESSION: Submitted images from the current procedure: 3.0
--- NOTE | 2019-01-04 17:02 | OP ---
PROCEDURE DATE: 01/01/2019 PREOPERATIVE DIAGNOSIS: Failed back syndrome. POSTOPERATIVE DIAGNOSIS: Failed back syndrome. PROCEDURE: Right sacroiliac joint steroid injection and bilateral L4 and L5 medial branch nerve blocks. ANESTHESIOLOGIST: Rossy Aguilar MD SURGEON: Krystyna Yepez MD TYPE OF ANESTHESIA: Monitored anesthesia care. COMPLICATIONS: None. SPECIMEN: None. DESCRIPTION OF PROCEDURE: Procedure is as follows: After we had a discussion of the procedure with the patient including its risks, benefits, alternatives, outcome data, possibility of no effect or increased pain, the patient consented to the procedure. She denied any recent infection, bleeding tendencies, or being on anticoagulants. Decision was then made to proceed to the OR. The patient had stopped Eliquis on Friday prior to the procedure. The patient was placed on the fluoroscopy table in a prone position with two pillows underneath her abdomen. The back was prepped and draped in the usual sterile fashion. A sterile technique was adhered to during the entire procedure. The joint was first visualized on the anteroposterior view. The target was at the inside of the Inferior pole of the posterior opening of the right sacroiliac joint and the skin overlying this area was then infiltrated with 1% lidocaine using 25-gauge needle. Subsequently, a 22-gauge 3.5-inch spinal needle was then was then incrementally advanced under fluoroscopic guidance until tip of the needle walked into the joint capsule. After appropriate placement of the needle, approximately 0.5 mL of Isovue contrast was injected showing appropriate spread of the . At this point, approximately 3 mL of 0.5% Marcaine and Depo-Medrol mixture was injected. The needle was then removed. Then, the L4 and L5 medial branch nerves were located at the pedicles of the right side first. The target is at the junction of the superior articular process and the transverse process. The skin overlying this area was then infiltrated with 1% lidocaine using 25-gauge needle. Subsequently, a 22-gauge 3.5-inch spinal needle was then incrementally advanced under fluoroscopic guidance until tip of the needle made bony contact with both targets. After satisfactory positioning of both needles, approximately 3 mL of 0.25% Marcaine and Depo-Medrol mixture was injected. Reading were then removed and the same exact procedure was performed on the contralateral left side using the same medications and techniques. At the end of the case, the patient's back was cleaned and dry bandage was applied. The patient was then transferred to recovery area in good condition without any signs of HR SPECIALIST toxicity or any neurological deficit. She will be following up in our office in approximately two to four weeks. En-Slim Yepez MD
== END 2019-01-01 12:00 | disposition home or self-care (01) ==
LOC: H.OPSURG 06:10
PROVIDERS: ATTEND Anesthesiology
DX: M46.1 Sacroiliitis, not elsewhere classified (principal); I48.91 Unspecified atrial fibrillation; E11.9 Type 2 diabetes mellitus without complications; E78.5 Hyperlipidemia, unspecified; I10 Essential (primary) hypertension; E66.01 Morbid (severe) obesity due to excess calories; I69.351 Hemiplegia and hemiparesis following cerebral infarction affecting right dominant side; G47.33 Obstructive sleep apnea (adult) (pediatric)
CPT/HCPCS: 62321; 82948; J1040; J2250; J3010; J7120; Q9967

== ENCOUNTER 2019-03-04 10:44 | Inpatient (IN) | payer MEDICARE ==
[2019-03-04] MEDS ORDERED: Albuterol-Ipratrop 3 mg / 0.5 (3 ml) UD IH STA ×2 (11:44→11:45)
[2019-03-04] MEDS ORDERED: Albuterol-Ipratrop 3 mg / 0.5 (3 ml) UD INH STA (11:44)
[2019-03-04] MEDS ORDERED: Sodium Chloride 0.9% 1,000 ML IV SCH ×2 (11:45→16:51)
--- NOTE | 2019-03-04 11:46 | ED PDOC ---
HPI: SOB/CHF/COPD Time Seen by Provider: 03/04/19 11:21 Chief Complaint (Nursing): Shortness Of Breath Chief Complaint (Provider): Shortness Of Breath History Per: Patient History/Exam Limitations: no limitations Onset/Duration Of Symptoms: Days (several) Current Symptoms Are (Timing): Still Present Additional Complaint(s): 84 year old female presents to the ED for evaluation of shortness of breath for several days. Patient initially saw Dr. Jeff who gave her medications, but states she did not get better, returning to his office today. He sent her to ED for continued shortness of breath, which she reports is associated with a cough productive of clear sputum and some chest pain. Otherwise, denies nausea, vomiting, diarrhea, leg pain, headache, numbness, tingling, and weakness. Of note, patient has a history of COPD and states her symptoms feel similar to past episodes. Past Medical History Reviewed: Historical Data, Nursing Documentation, Vital Signs Vital Signs: Last Vital Signs Temp 97.8 F 03/04/19 10:54 Pulse 126 H 03/04/19 10:54 Resp 22 03/04/19 10:54 BP 148/110 H 03/04/19 10:54 Pulse Ox 98 03/04/19 10:54 Primary Care Provider: Gaudencio Jeff - Medical History PMH: Arthritis, Asthma, Atrial Fibrillation (new onset), Cardia Arrhythmia (A- fib), COPD, CVA, Diabetes, HTN, Hypercholesterolemia Denies: CHF, Hypothyroidism, Chronic Kidney Disease, Rheumatoid Arthritis - Surgical History Other surgeries: RIGHT HAND SURGERY-2006;BACK SURGERY-1997;RIGHT BREAST LUMP- 1996;RIGHT FOOT SURGERY 1993 - Family History Family History: States: Unknown Family Hx - Social History Current smoker - smoking cessation education provided: No Alcohol: None Drugs: Denies - Home Medications Home Medications: Ambulatory Orders Medication Instructions Recorded Lisinopril 10 mg PO DAILY 11/23/15 metFORMIN [glucOPHAGE] 850 mg PO BID 12/07/15 Simvastatin 10 mg PO HS 05/30/17 hydroCHLOROthiazide [Microzide] 12.5 mg PO DAILY 03/06/18 Apixaban [Eliquis] 5 mg PO Q12 10/14/18 Albuterol Sulfate [Proair 2 puff IH Q4 PRN 03/04/19 Respiclick] Albuterol/Ipratropium [Duoneb 3 3 ml IH Q8 PRN 03/04/19 mg/0.5 mg (3 ml) UD] Fluticasone/Salmeterol 250/50 1 puff IH Q12 03/04/19 [Advair Diskus 250/50] predniSONE [predniSONE Tab] 40 mg PO DAILY 03/04/19 - Allergies Allergies/Adverse Reactions: Allergies Allergy/AdvReac Type Severity Reaction Status Date / Time aspirin Allergy VOMITING Verified 01/01/19 06:46 olive oil Allergy SWELLING Verified 01/01/19 06:46 Review of Systems ROS Statement: Except As Marked, All Systems Reviewed And Found Negative Cardiovascular: Positive for: Chest Pain Respiratory: Positive for: Cough, Shortness of Breath, Sputum (clear) Gastrointestinal: Negative for: Nausea, Vomiting, Diarrhea Musculoskeletal: Negative for: Leg Pain Neurological: Negative for: Weakness, Numbness (or tingling), Headache, Dizziness Physical Exam - Reviewed Nursing Documentation Reviewed: Yes Vital Signs Reviewed: Yes - Physical Exam Appears: Positive for: No Acute Distress Head Exam: Positive for: ATRAUMATIC, NORMOCEPHALIC Skin: Positive for: Normal Color, Warm Eye Exam: Positive for: Normal appearance, EOMI, PERRL ENT: Positive for: Normal ENT Inspection Neck: Positive for: Normal, Painless ROM, Supple Cardiovascular/Chest: Positive for: Tachycardia (mild) Respiratory: Positive for: Decreased Breath Sounds, Wheezing (diffuse) Gastrointestinal/Abdominal: Positive for: Normal Exam, Soft. Negative for: Tenderness Back: Positive for: Normal Inspection Extremity: Positive for: Normal ROM (all extremities). Negative for: Other (pitting edema bilaterally ) Neurological/Psych: Positive for: Awake, Alert, Oriented (x3) - Laboratory Results Result Diagrams: 03/04/19 12:45 03/04/19 12:45 - ECG ECG: Positive for: Interpreted By Me, Viewed By Me ECG Rhythm: Positive for: Atrial Fibrillation O2 Sat by Pulse Oximetry: 98 (RA) Pulse Ox Interpretation: Normal - Radiology X-Ray: Read By Radiologist X-Ray Interpretation: No Acute Disease - Progress ED Course And Treament: 1450: Stable. AAOx3. Pain free. Feels better. Will need admit for monitoring and tx. Medical Decision Making Medical Decision Making: Time: 1143 Initial Impression: shortness of breath Initial Plan: --ABG --EKG --BNP --CMP --Magnesium / Phosphorus chemistry --Trop I --CBC with differential --PTT / PT --CXR --Duoneb 3ml INH x3 --Lasix 40mg IV --Normal saline IV --Nitroglycerin 0.4mg SL (patient not given because allergic) --SOLU-Medrol 125mg IV --Blood culture --Placed on cafeteria monitor (patient experiencing mild a-fib, likely from albuterol) --Peak flow pre/post x2 --Consult Dr. Jeff [id number] Wen who agrees with current plan and management. Patient admitted under Dr. Jeff. Dr. Jackson additionally agrees with plan. No asa as pt. allergic. Scribe Attestation: Documented by Jazzmine Beckett, acting as a scribe for Abel Heath MD. Provider Scribe Attestation: All medical record entries made by the Scribe were at my direction and personally dictated by me. I have reviewed the chart and agree that the record accurately reflects my personal performance of the history, physical exam, medical decision making, and the department course for this patient. I have also personally directed, reviewed, and agree with the discharge instructions and disposition. Disposition - Clinical Impression Clinical Impression: COPD exacerbation, CHF (congestive heart failure) - Patient ED Disposition Is Patient to be Admitted: No Counseled Patient/Family Regarding: Studies Performed, Diagnosis - Disposition Disposition Time: 10:55 Condition: FAIR Forms: [employer] (Tanzanian)
[2019-03-04] MEDS ORDERED: Albuterol-Ipratrop 3 mg / 0.5 (3 ml) UD ONE ×2 (12:18→15:55)
[2019-03-04 13:00] LABS: BASO % 0.3 % (0.0-2.0); EOS % 0.3 % (0.0-4.0); HEMOGLOBIN 13.9 g/dL (12.0-16.0); LYMPH % 23.2 % (20.0-40.0); MEAN CELL VOLUME 90.2 fl (81.0-99.0); MEAN CORPUSCULAR HEMOGLOBIN 30.5 pg (27.0-31.0); MEAN CORPUSCULAR HGB CONC 33.8 g/dL (33.0-37.0); MEAN PLATELET VOLUME 10.5 fl (7.2-11.7); MONO # 0.7 K/uL (0.0-0.8); MONO % 7.7 % (0.0-10.0); NEUT # 5.8 K/uL (1.8-7.0); NEUT % 68.5 % (50.0-75.0); NRBC % 0.1 % (0.0-0.0); RBC 4.55 Mil/uL (3.80-5.20); RED CELL DISTRIBUTION WIDTH 13.1 % (11.5-14.5); WHITE BLOOD COUNT 8.5 K/uL (4.8-10.8)
[2019-03-04 13:08] LABS: ALB/GLOB RATIO 1.5 (1.0-2.1); ALBUMIN 3.8 g/dL (3.5-5.0); ALT/SGPT 35 U/L (9-52); AST/SGOT 30 U/L (14-36); BLOOD UREA NITROGEN 22 mg/dl (7-17); CALCIUM 10.3 mg/dL (8.4-10.2); GFR NON-AFRICAN AMERICAN > 60
[2019-03-04 13:13] LABS: PROTHROMBIN TIME 11.2 Seconds (9.8-13.1)
[2019-03-04 13:14] LABS: ABG ALLEN TEST YES; ARTERIAL BLOOD GAS HCO3 30.1 mmol/L (21-28); ARTERIAL BLOOD GAS O2 SAT 98.6 % (95-98); ARTERIAL BLOOD GAS PCO2 39 mm/Hg (35-45); ARTERIAL BLOOD GAS PO2 73 mm/Hg (80-100); ARTERIAL BLOOD GAS TCO2 31.6 mmol/L (22-28)
[2019-03-04 13:16] LABS: PARTIAL THROMBOPLASTIN TIME 25.8 Seconds (25.6-37.1)
[2019-03-04 13:18] LABS: B-TYPE NATRIURETIC PEPTIDE 1730 pg/ml (0-900)
--- NOTE | 2019-03-04 13:19 | RAD ---
Date of service: 03/04/2019 HISTORY: Sepsis Patient COMPARISON: 11/26/2015 FINDINGS: LUNGS: No active pulmonary disease. PLEURA: No significant pleural effusion identified, no pneumothorax apparent. CARDIOVASCULAR: No atherosclerotic calcification present Normal. OSSEOUS STRUCTURES: No significant abnormalities. VISUALIZED UPPER ABDOMEN: Normal. OTHER FINDINGS: None. IMPRESSION: No active disease. No significant interval change compared to the prior examination(s).
[2019-03-04] MEDS ORDERED: Albuterol 0.083% Inhal Sol (2.5 mg/3 mL) UD INH PRN (15:00)
[2019-03-04] MEDS ORDERED: Sodium Chloride 3% for Inhalation 4 ML VIAL.NEB IH PRN (15:05)
[2019-03-04] MEDS ORDERED: MethylPREDNISolone 40 mg Vial IVP SCH (15:15)
[2019-03-04] MEDS: Albuterol-Ipratrop 3 mg / 0.5 (3 ml) UD INH SCH ×2 (15:55→19:51)
[2019-03-04] MEDS ORDERED: Dextrose 50% SYRINGE Inj (50 ml) IV PRN (17:56)
[2019-03-04] MEDS ORDERED: Glucagon Recombinant 1 mg Inj IM PRN (17:56)
--- NOTE | 2019-03-04 18:24 | CARD ---
APPROVED REPORT Date of service: 03/04/2019 EKG Measurement Heart [id number] <Conclusion> Atrial fibrillation with rapid ventricular response with premature ventricular or aberrantly conducted complexes Abnormal ECG
[2019-03-04] MEDS ORDERED: Magnesium Sulfate 2 gm/50 ml 2 GM/50 ML BAG IVPB ONE (18:56)
[2019-03-04 19:43] VITALS: BMI 42.6
[2019-03-04] MEDS: guaiFENesin-DM 600-30 mg ER Tab PO SCH (20:31)
--- NOTE | 2019-03-04 20:57 | CP.PCM.PN ---
Subjective - Date & Time of Evaluation Date of Evaluation: 03/04/19 Time of Evaluation: 22:22 - Subjective Subjective: 84 yo CVA Afiib COPD presents to the ER with SOB Objective - Vital Signs/Intake and Output Vital Signs (last 24 hours): Temp Pulse Resp BP Pulse Ox 97.4 F L 104 H 22 134/72 97 03/04/19 19:56 03/04/19 20:02 03/04/19 19:56 03/04/19 19:56 03/04/19 19:56 - Medications Medications: Current Medications Albuterol Sulfate (Albuterol 0.083% Inhal Joleen (2.5 Mg/3 Ml) Ud) 2.5 mg INH RQ4 PRN PRN Reason: Shortness of Breath Albuterol/Ipratropium (Duoneb 3 Mg/0.5 Mg (3 Ml) Ud) 3 ml INH RQID DAVID Last Admin: 03/04/19 19:51 Dose: 3 ml Apixaban (Eliquis) 5 mg PO Q12 [facility]ID; Protocol Last Admin: 03/04/19 20:35 Dose: 5 mg Dextrose (Dextrose 50% Inj) 0 ml IV STAT PRN; Protocol PRN Reason: Hypoglycemia Protocol Dextrose (Glutose 15) 0 gm PO ONCE PRN; Protocol PRN Reason: Hypoglycemia Protocol Glucagon (Glucagen Diagnostic Kit) 0 mg IM STAT PRN; Protocol PRN Reason: Hypoglycemia Protocol Guaifenesin/Dextromethorphan (Mucinex-Dm 600-30 Mg) 2 tab PO BID [facility] Last Admin: 03/04/19 20:31 Dose: 2 tab Hydrochlorothiazide (Microzide) 12.5 mg PO DAILY [facility] Insulin Human Lispro (Humalog) [address] [facility]; Protocol Lisinopril (Zestril) 10 mg PO DAILY [facility] Metformin HCl (Glucophage) 850 mg PO BID [facility] Last Admin: 03/04/19 20:30 Dose: 850 mg Methylprednisolone (Solu-Medrol) 40 mg IVP Q6H [facility] Pantoprazole Sodium (Protonix Ec Tab) 40 mg PO DAILY [facility] Pravastatin Sodium (Pravachol) 20 mg PO HS [facility] Prednisone (Prednisone Tab) 40 mg PO DAILY [facility] - Labs Labs: 03/04/19 12:45 03/04/19 12:45 PT 11.2 Seconds (9.8-13.1) 03/04/19 12:45 INR 1.0 03/04/19 12:45 APTT 25.8 Seconds (25.6-37.1) 03/04/19 12:45 - Respiratory Exam Respiratory Exam: Prolonged Expiratory Phase - Cardiovascular Exam Cardiovascular Exam: Irregular Rhythm - GI/Abdominal Exam GI & Abdominal Exam: Normal Bowel Sounds Assessment and Plan - Assessment and Plan (Free Text) Assessment: SOB COPD acute excerbation IV steroids Bronchodilators Pulmonary HX CVA Afiib BNP ?? Cardiology
[2019-03-04] MEDS ORDERED: FLUTICASONE PROPION/SALMETEROL 232-14 INHALER IH SCH (21:00)
[2019-03-04] MEDS: Insulin Lispro (humaLOG) 100 Units/ml Inj SC SCH (21:39)
[2019-03-04] MEDS: Pravastatin Sodium 20 MG TAB PO SCH (21:42)
[2019-03-05 06:21] LABS: HEMOGLOBIN 13.9 g/dL (12.0-16.0); MEAN CELL VOLUME 90.5 fl (81.0-99.0); MEAN CORPUSCULAR HEMOGLOBIN 30.8 pg (27.0-31.0); RBC 4.52 Mil/uL (3.80-5.20); WHITE BLOOD COUNT 6.9 K/uL (4.8-10.8)
[2019-03-05 06:37] LABS: ALB/GLOB RATIO 1.4 (1.0-2.1); ALBUMIN 3.8 g/dL (3.5-5.0); ALT/SGPT 32 U/L (9-52); AST/SGOT 21 U/L (14-36); BLOOD UREA NITROGEN 33 mg/dl (7-17); GFR NON-AFRICAN AMERICAN > 60
[2019-03-05] MEDS: Albuterol-Ipratrop 3 mg / 0.5 (3 ml) UD INH SCH ×4 (08:10→19:50)
[2019-03-05] MEDS: guaiFENesin-DM 600-30 mg ER Tab PO SCH ×2 (08:45→17:04)
[2019-03-05] MEDS: Pantoprazole 40 mg EC Tab PO SCH (08:46)
[2019-03-05] MEDS: MethylPREDNISolone 40 mg Vial IVP SCH ×3 (08:47→21:39)
[2019-03-05] MEDS: Insulin Lispro (humaLOG) 100 Units/ml Inj SC SCH ×3 (08:52→21:37)
[2019-03-05] MEDS ORDERED: FLUTICASONE PROPION/SALMETEROL 113-14 IH SCH (09:00)
[2019-03-05] MEDS ORDERED: methylPREDNISolone 40 MG in Sodium Chloride 0.9% 50 ML IV SCH (09:00)
--- NOTE | 2019-03-05 09:35 | CP.PCM.CON ---
History of Present Illness - History of Present Illness History of Present Illness: This 84-year-old chronically overweight hypertensive diabetic female with a history of atrial fibrillation is well-known to me for over 10 years. She has a history of cerebrovascular accident number of years back. A couple of years back she was found to have atrial fibrillation and was started on oral anticoagulation initially in the form of warfarin and later on Eliquis. She has a long history of severe lower back pain as well as severe osteoarthritis. Her physical activities are severely curtailed by osteoarthritic knees and her lower back pain. She has never suffered a myocardial infarction and there is no history of prior congestive cardiac failure. The patient gives history of having developed a flulike syndrome a week back followed by a recurrent scantily productive cough and wheezing. She arrived in the emergency room quite short of breath. Physical examination shows an elderly obese female mildly dyspneic at rest with a respiratory rate of 18 to 20 breaths/min. Telemetry shows persistent atrial fibrillation with a ventricular rate of 110-120 bpm. Her blood pressure was 136/80 mmHg. Jugular venous pressure could not be assessed because of a short thick neck. There was pitting edema over both lower extremities with evidence of chronic venous stasis. Extremities were warm and nailbeds were pink there was no central or peripheral cyanosis. There was no clubbing. There was bilateral wheezing. Remus was not palpable first and second heart sounds were distant inspiratory effort was poor and no rales were appreciated. Electric cardiogram showed atrial fibrillation with rapid heart rate at 125 bpm. No Q waves were detected. The EKG pattern corresponded to her earlier el ectrocardiograms. An echocardiogram in 2017 had shown preserved left ventricular systolic function. Left and right atria were mildly dilated suggestive of LV diastolic dysfunction. Labs were noted. Her proBNP was elevated. Chest x-ray findings were noted. Impression: The onset of her illness strongly suggests the possibility of viral syndrome with acute bronchitis possibly aggravated by congestive cardiac failure which is left ventricular diastolic and chronic. History of CVA, chronic exoge nous obesity with hypertension diabetes and chronic lower back pain and osteoarthritis with chronic venous stasis of lower extremities. I have requested an echocardiogram to evaluate her left ventricular systolic function. In the meantime she is receiving bronchodilators. I have given her a dose of digoxin to slow her heart rate and beta-blockade is being avoided. In the meantime she is anticoagulated with Eliquis. Past Patient History - Infectious Disease Hx of Infectious Diseases: None - Past Medical History & Family History Past Medical History?: Yes - Past Social History Smoking Status: Never Smoked - CARDIAC Hx Cardiac Disorders: Yes - PULMONARY Hx Respiratory Disorders: Yes - NEUROLOGICAL Hx Neurological Disorder: Yes - HEENT Hx HEENT Problems: No - RENAL Hx Chronic Kidney Disease: No - ENDOCRINE/METABOLIC Hx Endocrine Disorders: Yes - HEMATOLOGICAL/ONCOLOGICAL Hx Blood Disorders: No Hx Blood Transfusions: No Hx Blood Transfusion Reaction: No - INTEGUMENTARY Hx Dermatological Problems: No Other/Comment: Zoster last month - MUSCULOSKELETAL/RHEUMATOLOGICAL Hx Arthritis: Yes Hx Falls: No Hx Rheumatoid Arthritis: No - GASTROINTESTINAL Hx Gastrointestinal Disorders: No - GENITOURINARY/GYNECOLOGICAL Hx Genitourinary Disorders: No - PSYCHIATRIC Hx Emotional Abuse: No Hx Physical Abuse: No Hx Substance Use: No - SURGICAL HISTORY Hx Surgeries: Yes Hx Breast Biopsy: Yes (Right breast as per daughter.) Hx Orthopedic Surgery: Yes (lumbar surgery-1997) Other/Comment: RIGHT HAND SURGERY-2006;BACK SURGERY-1997;RIGHT BREAST LUMP- 1996;RIGHT FOOT SURGERY 1993 - ANESTHESIA Hx Anesthesia: Yes Hx Anesthesia Reactions: No Hx Malignant Hyperthermia: No Meds Allergies/Adverse Reactions: Allergies Allergy/AdvReac Type Severity Reaction Status Date / Time aspirin Allergy VOMITING Verified 01/01/19 06:46 olive oil Allergy SWELLING Verified 01/01/19 06:46 - Medications Medications: Current Medications Albuterol Sulfate (Albuterol 0.083% Inhal Joleen (2.5 Mg/3 Ml) Ud) 2.5 mg INH RQ4 PRN PRN Reason: Shortness of Breath Albuterol/Ipratropium (Duoneb 3 Mg/0.5 Mg (3 Ml) Ud) 3 ml INH RQID DAVID Last Admin: 03/05/19 08:10 Dose: 3 ml Apixaban (Eliquis) 5 mg PO Q12 [facility]; Protocol Last Admin: 03/05/19 08:46 Dose: 5 mg Dextrose (Dextrose 50% Inj) 0 ml IV STAT PRN; Protocol PRN Reason: Hypoglycemia Protocol Dextrose (Glutose 15) 0 gm PO ONCE PRN; Protocol PRN Reason: Hypoglycemia Protocol Glucagon (Glucagen Diagnostic Kit) 0 mg IM STAT PRN; Protocol PRN Reason: Hypoglycemia Protocol Guaifenesin/Dextromethorphan (Mucinex-Dm 600-30 Mg) 2 tab PO BID [facility] Last Admin: 03/05/19 08:45 Dose: 2 tab Hydrochlorothiazide (Microzide) 12.5 mg PO DAILY [facility] Insulin Human Lispro (Humalog) 0 units SC [facility]; Protocol Last Admin: 03/05/19 08:52 Dose: 2 units Lisinopril (Zestril) 10 mg PO DAILY [facility] Last Admin: 03/05/19 08:46 Dose: 10 mg Metformin HCl (Glucophage) 850 mg PO BID [facility] Last Admin: 03/04/19 20:30 Dose: 850 mg Methylprednisolone (Solu-Medrol) 40 mg IVP Q6H [facility] Last Admin: 03/05/19 08:47 Dose: 40 mg Pantoprazole Sodium (Protonix Ec Tab) 40 mg PO DAILY [facility] Last Admin: 03/05/19 08:46 Dose: 40 mg Pravastatin Sodium (Pravachol) 20 mg PO HS [facility] Last Admin: 03/04/19 21:42 Dose: 20 mg Prednisone (Prednisone Tab) 40 mg PO DAILY [facility] Results - Vital Signs Recent Vital Signs: Last Vital Signs Temp 97.3 F L 03/05/19 07:54 Pulse 100 H 03/05/19 08:46 Resp 20 03/05/19 07:54 BP 169/74 H 03/05/19 08:46 Pulse Ox 96 03/05/19 07:54 - Labs Result Diagrams: 03/05/19 05:00 03/05/19 04:40 Labs: Laboratory Results - last 24 hr 03/04/19 03/04/19 03/04/19 12:45 12:45 12:45 WBC 8.5 RBC 4.55 Hgb 13.9 Hct 41.0 MCV 90.2 MCH 30.5 MCHC 33.8 RDW 13.1 Plt Count 115 L MPV 10.5 Neut % (Auto) 68.5 Lymph % (Auto) 23.2 Sumner % (Auto) 7.7 Eos % (Auto) 0.3 Baso % (Auto) 0.3 Neut # (Auto) 5.8 Lymph # (Auto) 2.0 Sumner # (Auto) 0.7 Eos # (Auto) 0.0 Baso # (Auto) 0.0 PT 11.2 INR 1.0 APTT 25.8 pCO2 pO2 HCO3 ABG pH ABG Total CO2 ABG O2 Saturation ABG Base Excess Tru Test ABG Potassium A-a O2 Difference Glucose Lactate FiO2 Sodium 139 Potassium 4.1 Chloride 99 Carbon Dioxide 32 H Anion Gap 12 BUN 22 H Creatinine 0.5 L Est GFR ( Amer) > 60 Est GFR (Non-Af Amer) > 60 POC Glucose (mg/dL) Random Glucose 122 H Calcium 10.3 H Phosphorus 2.5 Magnesium 1.2 L Total Bilirubin 0.5 AST 30 ALT 35 Alkaline Phosphatase 52 Troponin I 0.0130 NT-Pro-B Natriuret Pep 1730 H Total Protein 6.4 Albumin 3.8 Globulin 2.6 Albumin/Globulin Ratio 1.5 Arterial Blood Potassium 03/04/19 03/04/19 03/04/19 12:56 21:29 23:54 WBC RBC Hgb Hct MCV MCH MCHC RDW Plt Count MPV Neut % (Auto) Lymph % (Auto) Sumner % (Auto) Eos % (Auto) Baso % (Auto) Neut # (Auto) Lymph # (Auto) Sumner # (Auto) Eos # (Auto) Baso # (Auto) PT INR APTT pCO2 39 pO2 73 L HCO3 30.1 H ABG pH 7.50 H ABG Total CO2 31.6 H ABG O2 Saturation 98.6 H ABG Base Excess 6.7 H Tru Test Yes ABG Potassium 3.6 A-a O2 Difference 28.0 Glucose 120 H Lactate 1.9 FiO2 21.0 Sodium 137.0 Potassium Chloride 103.0 Carbon Dioxide Anion Gap BUN Creatinine Est GFR ( Amer) Est GFR (Non-Af Amer) POC Glucose (mg/dL) 410 H* 276 H Random Glucose Calcium Phosphorus Magnesium Total Bilirubin AST ALT Alkaline Phosphatase Troponin I NT-Pro-B Natriuret Pep Total Protein Albumin Globulin Albumin/Globulin Ratio Arterial Blood Potassium 3.6 03/05/19 03/05/19 03/05/19 04:40 05:00 05:26 WBC 6.9 RBC 4.52 Hgb 13.9 Hct 40.9 MCV 90.5 MCH 30.8 MCHC 34.0 RDW 13.0 Plt Count 155 MPV Neut % (Auto) Lymph % (Auto) Sumner % (Auto) Eos % (Auto) Baso % (Auto) Neut # (Auto) Lymph # (Auto) Sumner # (Auto) Eos # (Auto) Baso # (Auto) PT INR APTT pCO2 pO2 HCO3 ABG pH ABG Total CO2 ABG O2 Saturation ABG Base Excess Tru Test ABG Potassium A-a O2 Difference Glucose Lactate FiO2 Sodium 138 Potassium 4.6 Chloride 99 Carbon Dioxide 30 Anion Gap 14 BUN 33 H Creatinine 0.7 Est GFR ( Amer) > 60 Est GFR (Non-Af Amer) > 60 POC Glucose (mg/dL) 171 H Random Glucose 183 H Calcium 10.0 Phosphorus Magnesium 1.6 Total Bilirubin 0.4 AST 21 ALT 32 Alkaline Phosphatase 56 Troponin I NT-Pro-B Natriuret Pep Total Protein 6.5 Albumin 3.8 Globulin 2.7 Albumin/Globulin Ratio 1.4 Arterial Blood Potassium
[2019-03-05] MEDS ORDERED: Digoxin 500 mcg/2ml (0.5 mg/2ml) Inj IVP ONE ×2 (09:36→15:00)
--- NOTE | 2019-03-05 11:52 | CP.PCM.CON ---
History of Present Illness - History of Present Illness History of Present Illness: This 84 year old Malay female presented to the emergency department with cough, wheeze and SOB which had been worsening/persistent for the past week [employer]. Her cough was non-productive and she was unaware of fever and denied chills. She also denied any nasal discharge, headache, sore throat or voice change. She had a portable CXR in the ER which did not show any clear cut consolidation, but body habitus reliability of the film. Since admission she continues to manifest bronchoconstriction with continued wheezing requiring aerosol treatments, but she has been tachycardic as well. She denied chest pain and hemoptysis. She has not been febrile and there has been no leukocytosis. She does have a prior history of Bronchial Asthma and hypertension as well as myelodysplastic syndrome. Review of Systems - Review of Systems All systems: reviewed and no additional remarkable complaints except - EENT Nose/Mouth/Throat: As Per HPI - Respiratory Respiratory: Cough, Dyspnea, Wheezing, Chest Congestion Past Patient History - Infectious Disease Hx of Infectious Diseases: None - Past Medical History & Family History Past Medical History?: Yes Past Family History: Reviewed and not pertinent - Past Social History Smoking Status: Never Smoked Chewing Tobacco Use: No Cigar Use: No Alcohol: None Drugs: Denies Home Situation {Lives}: With Family - CARDIAC Hx Hypertension: Yes - PULMONARY Hx Asthma: Yes Hx Bronchitis: Yes - NEUROLOGICAL Hx Neurological Disorder: No - HEENT Hx HEENT Problems: No - RENAL Hx Chronic Kidney Disease: No - ENDOCRINE/METABOLIC Hx Diabetes Mellitus Type 2: Yes - HEMATOLOGICAL/ONCOLOGICAL Hx Blood Disorders: No - INTEGUMENTARY Other/Comment: Zoster - MUSCULOSKELETAL/RHEUMATOLOGICAL Hx Arthritis: Yes Hx Falls: No Hx Spinal Stenosis: Yes - GASTROINTESTINAL Hx Gastrointestinal Disorders: No - GENITOURINARY/GYNECOLOGICAL Hx Genitourinary Disorders: No - PSYCHIATRIC Hx Psychophysiologic Disorder: No Hx Substance Use: No - SURGICAL HISTORY Hx Breast Biopsy: Yes (Right breast as per daughter.) Hx Orthopedic Surgery: Yes (lumbar surgery-1997) Other/Comment: RIGHT HAND SURGERY-2006;BACK SURGERY-1997;RIGHT BREAST LUMP- 1996;RIGHT FOOT SURGERY 1993 - ANESTHESIA Hx Anesthesia: Yes Hx Anesthesia Reactions: No Hx Malignant Hyperthermia: No Meds Allergies/Adverse Reactions: Allergies Allergy/AdvReac Type Severity Reaction Status Date / Time aspirin Allergy VOMITING Verified 03/15/19 06:46 olive oil Allergy SWELLING Verified 01/01/19 06:46 - Medications Medications: Current Medications Albuterol Sulfate (Albuterol 0.083% Inhal Joleen (2.5 Mg/3 Ml) Ud) 2.5 mg INH RQ4 PRN PRN Reason: Shortness of Breath Albuterol/Ipratropium (Duoneb 3 Mg/0.5 Mg (3 Ml) Ud) 3 ml INH RQID DAVID Last Admin: 03/05/19 11:27 Dose: 3 ml Apixaban (Eliquis) 5 mg PO Q12 [facility]; Protocol Last Admin: 03/05/19 08:46 Dose: 5 mg Dextrose (Dextrose 50% Inj) 0 ml IV STAT PRN; Protocol PRN Reason: Hypoglycemia Protocol Dextrose (Glutose 15) 0 gm PO ONCE PRN; Protocol PRN Reason: Hypoglycemia Protocol Digoxin (Lanoxin) 0.25 mg IVP ONCE ONE Stop: 03/05/19 15:01 Glipizide (Glucotrol) 10 mg PO BIDAC [facility] Glucagon (Glucagen Diagnostic Kit) 0 mg IM STAT PRN; Protocol PRN Reason: Hypoglycemia Protocol Guaifenesin/Dextromethorphan (Mucinex-Dm 600-30 Mg) 2 tab PO BID [facility] Last Admin: 03/05/19 08:45 Dose: 2 tab Hydrochlorothiazide (Microzide) 12.5 mg PO DAILY [facility] Insulin Human Lispro (Humalog) 0 units SC [facility]; Protocol Last Admin: 03/05/19 08:52 Dose: 2 units Lisinopril (Zestril) 10 mg PO DAILY [facility] Last Admin: 03/05/19 08:46 Dose: 10 mg Metformin HCl (Glucophage) 850 mg PO BID [facility] Last Admin: 03/04/19 20:30 Dose: 850 mg Methylprednisolone (Solu-Medrol) 40 mg IVP Q6H [facility] Last Admin: 03/05/19 08:47 Dose: 40 mg Pantoprazole Sodium (Protonix Ec Tab) 40 mg PO DAILY [facility] Last Admin: 03/05/19 08:46 Dose: 40 mg Pravastatin Sodium (Pravachol) 20 mg PO HS [facility] Last Admin: 03/04/19 21:42 Dose: 20 mg Prednisone (Prednisone Tab) 40 mg PO DAILY [facility] Physical Exam - Additional Findings Additional findings: Obese female sitting up in bed, coughing non-productively. Flushed facies, no voice change, conjunctivae injected bilaterally. Nares patent without bleeding or exudate. Neck is supple and trachea midline. Pharynx is injected, dry mucosa, no exudate. No dullness on chest percussion, no subcut emphysema. Breath sounds are heard equally in both lungs. Late expiratory wheezes are heard bilaterally. Rare dependant dry rales in bases. No bronchial breath sounds or egophony. Heart sounds are distant, tachy, regular. Abdomen is obese and non-tender. Results - Vital Signs Recent Vital Signs: Last Vital Signs Temp 98.1 F 03/05/19 11:47 Pulse 81 03/05/19 11:47 Resp 22 03/05/19 11:47 BP 145/76 03/05/19 11:47 Pulse Ox 97 03/05/19 11:47 - Labs Result Diagrams: 03/05/19 05:00 03/05/19 04:40 Labs: Laboratory Results - last 24 hr 03/04/19 03/04/19 03/04/19 12:45 12:45 12:45 WBC 8.5 RBC 4.55 Hgb 13.9 Hct 41.0 MCV 90.2 MCH 30.5 MCHC 33.8 RDW 13.1 Plt Count 115 L MPV 10.5 Neut % (Auto) 68.5 Lymph % (Auto) 23.2 Fisher % (Auto) 7.7 Eos % (Auto) 0.3 Baso % (Auto) 0.3 Neut # (Auto) 5.8 Lymph # (Auto) 2.0 Fisher # (Auto) 0.7 Eos # (Auto) 0.0 Baso # (Auto) 0.0 PT 11.2 INR 1.0 APTT 25.8 pCO2 pO2 HCO3 ABG pH ABG Total CO2 ABG O2 Saturation ABG Base Excess Tru Test ABG Potassium A-a O2 Difference Glucose Lactate FiO2 Sodium 139 Potassium 4.1 Chloride 99 Carbon Dioxide 32 H Anion Gap 12 BUN 22 H Creatinine 0.5 L Est GFR ( Amer) > 60 Est GFR (Non-Af Amer) > 60 POC Glucose (mg/dL) Random Glucose 122 H Calcium 10.3 H Phosphorus 2.5 Magnesium 1.2 L Total Bilirubin 0.5 AST 30 ALT 35 Alkaline Phosphatase 52 Troponin I 0.0130 NT-Pro-B Natriuret Pep 1730 H Total Protein 6.4 Albumin 3.8 Globulin 2.6 Albumin/Globulin Ratio 1.5 Arterial Blood Potassium 03/04/19 03/04/19 03/04/19 12:56 21:29 23:54 WBC RBC Hgb Hct MCV MCH MCHC RDW Plt Count MPV Neut % (Auto) Lymph % (Auto) Fisher % (Auto) Eos % (Auto) Baso % (Auto) Neut # (Auto) Lymph # (Auto) Fisher # (Auto) Eos # (Auto) Baso # (Auto) PT INR APTT pCO2 39 pO2 73 L HCO3 30.1 H ABG pH 7.50 H ABG Total CO2 31.6 H ABG O2 Saturation 98.6 H ABG Base Excess 6.7 H Tru Test Yes ABG Potassium 3.6 A-a O2 Difference 28.0 Glucose 120 H Lactate 1.9 FiO2 21.0 Sodium 137.0 Potassium Chloride 103.0 Carbon Dioxide Anion Gap BUN Creatinine Est GFR ( Amer) Est GFR (Non-Af Amer) POC Glucose (mg/dL) 410 H* 276 H Random Glucose Calcium Phosphorus Magnesium Total Bilirubin AST ALT Alkaline Phosphatase Troponin I NT-Pro-B Natriuret Pep Total Protein Albumin Globulin Albumin/Globulin Ratio Arterial Blood Potassium 3.6 03/05/19 03/05/19 03/05/19 04:40 05:00 05:26 WBC 6.9 RBC 4.52 Hgb 13.9 Hct 40.9 MCV 90.5 MCH 30.8 MCHC 34.0 RDW 13.0 Plt Count 155 MPV Neut % (Auto) Lymph % (Auto) Fisher % (Auto) Eos % (Auto) Baso % (Auto) Neut # (Auto) Lymph # (Auto) Fisher # (Auto) Eos # (Auto) Baso # (Auto) PT INR APTT pCO2 pO2 HCO3 ABG pH ABG Total CO2 ABG O2 Saturation ABG Base Excess Tru Test ABG Potassium A-a O2 Difference Glucose Lactate FiO2 Sodium 138 Potassium 4.6 Chloride 99 Carbon Dioxide 30 Anion Gap 14 BUN 33 H Creatinine 0.7 Est GFR ( Amer) > 60 Est GFR (Non-Af Amer) > 60 POC Glucose (mg/dL) 171 H Random Glucose 183 H Calcium 10.0 Phosphorus Magnesium 1.6 Total Bilirubin 0.4 AST 21 ALT 32 Alkaline Phosphatase 56 Troponin I NT-Pro-B Natriuret Pep Total Protein 6.5 Albumin 3.8 Globulin 2.7 Albumin/Globulin Ratio 1.4 Arterial Blood Potassium 03/05/19 09:58 WBC RBC Hgb Hct MCV MCH MCHC RDW Plt Count MPV Neut % (Auto) Lymph % (Auto) Fisher % (Auto) Eos % (Auto) Baso % (Auto) Neut # (Auto) Lymph # (Auto) Fisher # (Auto) Eos # (Auto) Baso # (Auto) PT INR APTT pCO2 pO2 HCO3 ABG pH ABG Total CO2 ABG O2 Saturation ABG Base Excess Tru Test ABG Potassium A-a O2 Difference Glucose Lactate FiO2 Sodium Potassium Chloride Carbon Dioxide Anion Gap BUN Creatinine Est GFR ( Amer) Est GFR (Non-Af Amer) POC Glucose (mg/dL) Random Glucose Calcium Phosphorus Magnesium Total Bilirubin AST ALT Alkaline Phosphatase Troponin I NT-Pro-B Natriuret Pep 1510 H Total Protein Albumin Globulin Albumin/Globulin Ratio Arterial Blood Potassium Assessment & Plan (1) Wheezing Status: Acute Priority: High (2) Exacerbation of asthma Status: Acute Priority: High (3) Acute bronchitis Status: Acute Priority: High (4) Respiratory distress Status: Acute Priority: High (5) Exogenous obesity Status: Chronic Priority: High - Assessment and Plan (Free Text) Plan: Continue current regimen with steroids and aerosol therapy. Would treat with antibiotics empirically at this time, illness has been present for 1 week +. Taper steroid dose as quickly as possible. She bhas been sensitive to albuterol in the past with tachycardia; will switch to Xopenex. - Date & Time Date: 03/05/19 Time: 11:52
--- NOTE | 2019-03-05 15:31 | CARD ---
APPROVED REPORT Date of service: 03/05/2019 EXAM: Two-dimensional and M-mode echocardiogram with Doppler and color Doppler. Other Information Quality : AverageRhythm : Tachycardia INDICATION Congestive Heart Failure COPD 2D DIMENSIONS IVSd1.29 (0.7-1.1cm)LVDd4.15 (3.9-5.9cm) LVOT Diameter2.73 (1.8-2.4cm)PWd1.26 (0.7-1.1cm) IVSs1.01 (0.8-1.2cm)LVDs4.00 (2.5-4.0cm) FS (%) 3.7 %PWs1.02 (0.8-1.2cm) M-Mode DIMENSIONS Left Atrium (MM)5.48 (2.5-4.0cm)IVSd1.54 (0.7-1.1cm) Aortic Root2.90 (2.2-3.7cm)LVDd3.91 (4.0-5.6cm) Aortic Cusp Exc.1.64 (1.5-2.0cm)PWd1.19 (0.7-1.1cm) IVSs1.75 cmFS (%) 23 % LVDs3.00 (2.0-3.8cm)PWs1.68 cm Aortic Valve AoV Peak Wgeompuv457.7cm/sAoV VTI20.6cmAO Peak GR.5mmHg LVOT Peak Cwfvvmyh387.2cm/sLVOT VTI25.44cmAO Mean GR.3mmHg MORGAN (VMAX)3.85as7MTU (VTI)3.72cm2 Mitral Valve MV E [place]481.3cm/sMV DECEL [id number] A Gwrcurju73.0cm/s MV PMJ25vnA/A ratio2.3MVA (PHT)3.81cm2 TDI E/Lateral E'0.0E/Medial E'0.0 LEFT VENTRICLE The left ventricle is normal size. There is mild concentric left ventricular hypertrophy. Left ventricle systolic function is normal. LVEF is 65-70%. There is normal LV segmental wall motion. Transmitral Doppler flow pattern is Grade II-pseudonormal filling dynamics. RIGHT VENTRICLE The right ventricle is normal size. There is normal right ventricular wall thickness. The right ventricular systolic function is normal. ATRIA The left atrium is moderately dilated. The right atrium is mildly dilated. AORTIC VALVE The aortic valve is mildly sclerotic. No aortic regurgitation is present. There is no aortic valvular stenosis. MITRAL VALVE The mitral valve is normal in structure. There is no evidence of mitral valve prolapse. There is no mitral valve stenosis. Mitral regurgitation is mild. TRICUSPID VALVE The tricuspid valve is normal in structure. There is no tricuspid valve regurgitation noted. PULMONIC VALVE The pulmonic valve is not well visualized. There is no pulmonic valvular regurgitation. GREAT VESSELS The aortic root is normal in size. Due to poor image quality, the IVC could not be assessed. PERICARDIAL EFFUSION The pericardium appears normal. <Conclusion> Extremely poor echo window due to obesity and lung disease. At the time of this exam pt was in Sinus rhythm with APCs The left ventricle is normal size. There is mild concentric left ventricular hypertrophy. There is normal LV segmental wall motion. Left ventricle systolic function is normal. LVEF is 65-70%. Transmitral Doppler flow pattern is Grade II-pseudonormal filling dynamics. The left atrium is moderately dilated. The right atrium is mildly dilated.
[2019-03-05] MEDS: Azithromycin 500 MG in Sodium Chloride 0.9% 250 ML IVPB SCH (17:03)
[2019-03-05 17:11] VITALS: PULSE 91
--- NOTE | 2019-03-05 18:59 | CP.PCM.HP ---
History of Present Illness - History of Present Illness History of Present Illness: 84 yo CVA Afiib COPD admitted for SOB acute excerbation of COPD Present on Admission - Present on Admission Any Indicators Present on Admission: No Past Patient History - Infectious Disease Hx of Infectious Diseases: None - Past Medical History & Family History Past Medical History?: Yes Past Family History: Reviewed and not pertinent - Past Social History Smoking Status: Never Smoked Chewing Tobacco Use: No Cigar Use: No Alcohol: None Drugs: Denies Home Situation {Lives}: With Family - CARDIAC Hx Hypertension: Yes - PULMONARY Hx Asthma: Yes Hx Bronchitis: Yes - NEUROLOGICAL Hx Neurological Disorder: No - HEENT Hx HEENT Problems: No - RENAL Hx Chronic Kidney Disease: No - ENDOCRINE/METABOLIC Hx Diabetes Mellitus Type 2: Yes - HEMATOLOGICAL/ONCOLOGICAL Hx Blood Disorders: No - INTEGUMENTARY Other/Comment: Zoster - MUSCULOSKELETAL/RHEUMATOLOGICAL Hx Arthritis: Yes Hx Falls: No Hx Spinal Stenosis: Yes - GASTROINTESTINAL Hx Gastrointestinal Disorders: No - GENITOURINARY/GYNECOLOGICAL Hx Genitourinary Disorders: No - PSYCHIATRIC Hx Psychophysiologic Disorder: No Hx Substance Use: No - SURGICAL HISTORY Hx Breast Biopsy: Yes (Right breast as per daughter.) Hx Orthopedic Surgery: Yes (lumbar surgery-1997) Other/Comment: RIGHT HAND SURGERY-2006;BACK SURGERY-1997;RIGHT BREAST LUMP- 1996;RIGHT FOOT SURGERY 1993 - ANESTHESIA Hx Anesthesia: Yes Hx Anesthesia Reactions: No Hx Malignant Hyperthermia: No Meds Allergies/Adverse Reactions: Allergies Allergy/AdvReac Type Severity Reaction Status Date / Time aspirin Allergy VOMITING Verified 01/01/19 06:46 olive oil Allergy SWELLING Verified 01/01/19 06:46 Physical Exam - Respiratory Exam Respiratory Exam: NORMAL BREATHING PATTERN - Cardiovascular Exam Cardiovascular Exam: REGULAR RHYTHM - GI/Abdominal Exam GI & Abdominal Exam: Normal Bowel Sounds Results - Vital Signs Recent Vital Signs: Last Vital Signs Temp 98.6 F 03/05/19 16:51 Pulse 91 H 03/05/19 16:51 Resp 18 03/05/19 16:51 BP 131/76 03/05/19 16:51 Pulse Ox 94 L 03/05/19 16:51 - Labs Result Diagrams: 03/09/19 04:40 03/09/19 04:40 Labs: Laboratory Results - last 24 hr 03/04/19 03/04/19 03/05/19 21:29 23:54 04:40 WBC RBC Hgb Hct MCV MCH MCHC RDW Plt Count Sodium 138 Potassium 4.6 Chloride 99 Carbon Dioxide 30 Anion Gap 14 BUN 33 H Creatinine 0.7 Est GFR ( Amer) > 60 Est GFR (Non-Af Amer) > 60 POC Glucose (mg/dL) 410 H* 276 H Random Glucose 183 H Calcium 10.0 Magnesium 1.6 Total Bilirubin 0.4 AST 21 ALT 32 Alkaline Phosphatase 56 NT-Pro-B Natriuret Pep Total Protein 6.5 Albumin 3.8 Globulin 2.7 Albumin/Globulin Ratio 1.4 03/05/19 03/05/19 03/05/19 05:00 05:26 09:58 WBC 6.9 RBC 4.52 Hgb 13.9 Hct 40.9 MCV 90.5 MCH 30.8 MCHC 34.0 RDW 13.0 Plt Count 155 Sodium Potassium Chloride Carbon Dioxide Anion Gap BUN Creatinine Est GFR ( Amer) Est GFR (Non-Af Amer) POC Glucose (mg/dL) 171 H Random Glucose Calcium Magnesium Total Bilirubin AST ALT Alkaline Phosphatase NT-Pro-B Natriuret Pep 1510 H Total Protein Albumin Globulin Albumin/Globulin Ratio 03/05/19 16:14 WBC RBC Hgb Hct MCV MCH MCHC RDW Plt Count Sodium Potassium Chloride Carbon Dioxide Anion Gap BUN Creatinine Est GFR ( Amer) Est GFR (Non-Af Amer) POC Glucose (mg/dL) 257 H Random Glucose Calcium Magnesium Total Bilirubin AST ALT Alkaline Phosphatase NT-Pro-B Natriuret Pep Total Protein Albumin Globulin Albumin/Globulin Ratio Assessment & Plan - Assessment and Plan (Free Text) Assessment: SOB COPD acute excerbation IV steroids Bronchodilators ABX Pulmonary HX CVA Afib on Eliquis Dig started BNP ?? Echo LVH with LV ej fx 65-70% Cardiology NIDDM Cont meds MDS LBP - Date & Time Date: 03/05/19 Time: 22:22
[2019-03-05] MEDS: Pravastatin Sodium 20 MG TAB PO SCH (21:39)
--- NOTE | 2019-03-05 22:45 | CON ---
DATE: 03/05/2019 ENDOCRINOLOGY CONSULTATION LOCATION: Room 408. HISTORY OF PRESENT ILLNESS: This is an 84-year-old female with a known history of type 2 diabetes and hypertension, presenting here with progressive shortness of breath and productive cough and evaluated to have an acute exacerbation of COPD with supervening congestive heart failure and is now being referred for diabetic evaluation and management. With the initiation of steroid therapy, she developed marked hyperglycemic accelerations as noted thereof. Her glucose levels have ranged from 276 to 410 mg/dL. PAST MEDICAL HISTORY: History of type 2 diabetes, hypertension, history of chronic obstructive lung disease, history of chronic atrial fibrillation, and a history of bronchial asthma with frequent exacerbations of the same. FAMILY HISTORY: Positive for hypertension and heart disease. SOCIAL HISTORY: The patient has a supportive family. No known substance use. REVIEW OF SYSTEMS: Admits to generalized body weakness with episodic bouts of dizziness and lightheadedness, worse on the day of admission. No chest pains, but admits to progressive shortness of breath initially on exertion and then at rest with paroxysmal nocturnal dyspnea. Her oral intake has been variable with nausea, dyspepsia and vague upper abdominal pains. Also admits to marked polyuria, nocturia, and polydipsia as noted. PHYSICAL EXAMINATION: GENERAL: This is an average-built and overweight female in no apparent distress. VITAL SIGNS: Blood pressure of 150/100, pulse of 120 beats per minute and irregular, temperature 98, and respirations 20. Height is 5 feet and weight is 218 pounds. HEENT: Head normocephalic. Eyes anicteric with pink conjunctivae. Funduscopy is not possible at this time. Ears, nose and throat otherwise normal. NECK: Supple. Thyroid gland is normal in size. No carotid bruits or cervical adenopathy. CARDIOPULMONARY: Some adynamic precordium. S1 and S2, rapid and regular. LUNGS: Showed scattered rhonchi. ABDOMEN: Flat, soft with positive bowel sounds. EXTREMITIES: No peripheral edema. Pulses are +2 bilaterally. LABORATORY DATA: Her chemistry showed a BUN of 33, sodium 138, potassium 4.6, chloride 99, CO2 of 30, glucose 183, and creatinine 0.7. Her calcium is 10. Albumin is 3.8. ASSESSMENT: This is an 84-year-old female with uncontrolled and decompensated type 2 insulin-requiring diabetes with transient hyperglycemic accelerations related to the intercurrent IV steroid therapy as given with increased insulin resistance thereof. PLAN: Plan of management: We will modify her current insulin coverage scale to obviate hypoglycemia, and detailed orders have been given. We will also add basal insulin with Levemir given as 12 units subcu at bedtime daily to start tonight and we will titrate incrementally as indicated to optimize metabolic control. We will continue the oral hypoglycemic drug therapy given as glipizide at 10 mg b.i.d. and Prandin at 2 mg t.i.d. with meals as ordered. We will obtain serial chemistries and supplement accordingly as needed. We will obtain a hemoglobin A1c to confirm her prior glycemic control. Baseline thyroid function studies will also be added accordingly. Padmaja Yo MD
[2019-03-06] MEDS: MethylPREDNISolone 40 mg Vial IVP SCH ×3 (04:26→17:00)
[2019-03-06] MEDS: Insulin Lispro (humaLOG) 100 Units/ml Inj SC SCH ×4 (06:52→21:19)
[2019-03-06] MEDS: Albuterol-Ipratrop 3 mg / 0.5 (3 ml) UD INH SCH (07:11)
[2019-03-06 08:09] LABS: ALB/GLOB RATIO 1.4 (1.0-2.1); ALBUMIN 3.7 g/dL (3.5-5.0); ALT/SGPT 41 U/L (9-52); AST/SGOT 34 U/L (14-36); BLOOD UREA NITROGEN 33 mg/dl (7-17); CALCIUM 9.9 mg/dL (8.4-10.2); GFR NON-AFRICAN AMERICAN > 60
[2019-03-06] MEDS ORDERED: methylPREDNISolone 30 MG in Sodium Chloride 0.9% 50 ML IV SCH (09:00)
[2019-03-06] MEDS ORDERED: MethylPREDNISolone 40 mg Vial IVP SCH (09:00)
[2019-03-06] MEDS: Azithromycin 500 MG in Sodium Chloride 0.9% 250 ML IVPB SCH (09:52)
--- NOTE | 2019-03-06 09:52 | CP.PCM.PN ---
Subjective - Date & Time of Evaluation Date of Evaluation: 03/06/19 Time of Evaluation: 09:52 - Subjective Subjective: Seated on edge of bed, son visiting. Claims to feel improved, but still with cough and wheeze. Ambulates within the room. Vital signs and labs reviewed. Repeat CXCR requested. Trace dependant edema, no cyanosis or calf tenderness. Pharynx is pink and moist w/o exudate. Neck is supple and trachea midline. No dullness on chest percussion. Breath sounds are diminished bilaterally. Late expiratory, faint wheezing present in both LLs. Few scattered dry rales in lower lobes. No bronchial breath sounds or egophony. Heart sounds are [id number], mildly tachy, irregular. Likely Asthma/COPD overlap (a result of chronic asthma). There may be added early airways collapse causing late E wheeze. Exogenous obesity plays a part in the above. Will continue reduced steroid dosing. Add stronger cough suppressant PRN. Change aerosol therapy to Xopenex with ipratropium Q8H. AirDuo inhaler on hold for now because of tachycardia. Objective - Vital Signs/Intake and Output Vital Signs (last 24 hours): Temp Pulse Resp BP Pulse Ox 97.7 F 105 H 18 148/77 94 L 03/06/19 08:02 03/06/19 08:02 03/06/19 08:02 03/06/19 08:02 03/06/19 08:02 - Medications Medications: Current Medications Albuterol Sulfate (Albuterol 0.083% Inhal Joleen (2.5 Mg/3 Ml) Ud) 2.5 mg INH RQ4 PRN PRN Reason: Shortness of Breath Apixaban (Eliquis) 5 mg PO Q12 [facility]; Protocol Last Admin: 03/05/19 21:39 Dose: 5 mg Dextrose (Dextrose 50% Inj) 0 ml IV STAT PRN; Protocol PRN Reason: Hypoglycemia Protocol Dextrose (Glutose 15) 0 gm PO ONCE PRN; Protocol PRN Reason: Hypoglycemia Protocol Glipizide (Glucotrol) 10 mg PO BIDAC [facility] Last Admin: 03/05/19 17:00 Dose: 10 mg Glucagon (Glucagen Diagnostic Kit) 0 mg IM STAT PRN; Protocol PRN Reason: Hypoglycemia Protocol Guaifenesin/Dextromethorphan (Mucinex-Dm 600-30 Mg) 1 tab PO BID [facility] Hydrochlorothiazide (Microzide) 12.5 mg PO DAILY [facility] Last Admin: 03/05/19 17:05 Dose: 12.5 mg Ceftriaxone Sodium 1 gm/ (Sodium Chloride) 100 mls @ 100 mls/hr IVPB DAILY [facility]; Protocol Last Admin: 03/05/19 17:00 Dose: 100 mls/hr Azithromycin 500 mg/ Sodium (Chloride) 250 mls @ 250 mls/hr IVPB DAILY [facility]; Protocol Last Admin: 03/05/19 17:03 Dose: 250 mls/hr Insulin Human Lispro (Humalog) 0 units SC ACHS [facility]; Protocol Last Admin: 03/06/19 06:52 Dose: Not Given Ipratropium [place] (Atrovent) 0.5 mg IH RQ8 [facility] Levalbuterol HCl (Xopenex) 1.25 mg INH RQ8 [facility] Lisinopril (Zestril) 10 mg PO DAILY [facility] Last Admin: 03/05/19 08:46 Dose: 10 mg Metformin HCl (Glucophage) 850 mg PO BID [facility] Last Admin: 03/05/19 17:01 Dose: 850 mg Methylprednisolone (Solu-Medrol) 30 mg IVP Q8H [facility] Pantoprazole Sodium (Protonix Ec Tab) 40 mg PO DAILY [facility] Last Admin: 03/05/19 08:46 Dose: 40 mg Pravastatin Sodium (Pravachol) 20 mg PO HS [facility] Last Admin: 03/05/19 21:39 Dose: 20 mg Promethazine HCl/Codeine (Phenergan/Codeine Oral Syrup) 5 ml PO Q6 PRN PRN Reason: Cough - Labs Labs: 03/05/19 05:00 03/06/19 05:25 PT 11.2 Seconds (9.8-13.1) 03/04/19 12:45 INR 1.0 03/04/19 12:45 APTT 25.8 Seconds (25.6-37.1) 03/04/19 12:45 Assessment and Plan (1) Wheezing Status: Acute (2) Exacerbation of asthma Status: Acute (3) Acute bronchitis Status: Acute (4) Respiratory distress Status: Acute (5) Exogenous obesity Status: Chronic
[2019-03-06] MEDS: Pantoprazole 40 mg EC Tab PO SCH (09:54)
[2019-03-06] MEDS: Levalbuterol 1.25 MG/3 ML Inhal Soln UD INH SCH ×3 (11:11→23:50)
[2019-03-06] MEDS: Ipratropium 0.02% Inhal Soln (0.5 mg/2.5 ml) UD IH SCH ×3 (11:11→23:50)
--- NOTE | 2019-03-06 11:30 | PN ---
DATE: 03/06/2019 ENDOCRINOLOGY FOLLOWUP NOTE LOCATION: In room 408. SUBJECTIVE: This is an 84-year-old female with recent acute exacerbation of COPD with supervening marked hyperglycemic accelerations and is now being followed closely for metabolic management. Her glycemic levels are fluctuating, but improved, and the glucose values have ranged from 82-151 and 257 mg per dL. LABORATORY DATA: Her chemistry showed a BUN of 33, sodium 136, potassium 4.8, chloride 96, CO2 33, glucose 147, and creatinine 0.8. Her ProBNP is 1510. Her TSH is 0.20. ASSESSMENT: This is an 84-year-old female with uncontrolled and decompensated type 2 insulin-requiring diabetes with transient hyperglycemic accelerations related to the intercurrent intravenous steroid therapy as given with improved with increased insulin resistance and impaired glucose tolerance thereof. She also has an acute exacerbation of chronic obstructive pulmonary disease with supervening congestive heart failure and is now improving clinically and hemodynamically as noted thereof. PLAN OF MANAGEMENT: We will continue the dual oral hypoglycemic drug therapy as given with glipizide given as 10 mg b.i.d. as ordered with metformin given as 850 mg b.i.d. after meals as ordered. We will continue the modified low-dose correction scale using Humalog insulin as ordered. We will obtain serial chemistries and supplement accordingly as needed. We will follow and advise accordingly. Padmaja Yo MD
--- NOTE | 2019-03-06 11:44 | RAD ---
Date of service: 03/06/2019 HISTORY: Exacerbation of COPD. Exacerbation congestive heart failure. COMPARISON: 03/04/2019. TECHNIQUE: Chest PA and lateral views FINDINGS: LUNGS: Lower lobe infiltrates PLEURA: Bilateral pleural effusions. CARDIOVASCULAR: No aortic atherosclerotic calcification present. Pulmonary vascular congestion cardiomegaly. OSSEOUS STRUCTURES: No significant abnormalities. VISUALIZED UPPER ABDOMEN: Normal. OTHER FINDINGS: None. IMPRESSION: Lower lobe infiltrates/atelectasis. Small bilateral pleural effusions. Two-view study results in better visualization of these findings compared to the suboptimal portable examination performed recently.
[2019-03-06] MEDS: guaiFENesin-DM 600-30 mg ER Tab PO SCH (16:53)
[2019-03-06] MEDS: Pravastatin Sodium 20 MG TAB PO SCH (21:20)
[2019-03-07] MEDS: MethylPREDNISolone 40 mg Vial IVP SCH ×3 (01:51→21:39)
[2019-03-07] MEDS: Insulin Lispro (humaLOG) 100 Units/ml Inj SC SCH ×4 (06:41→21:29)
[2019-03-07] MEDS: Levalbuterol 1.25 MG/3 ML Inhal Soln UD INH SCH ×3 (07:38→23:49)
[2019-03-07] MEDS: Ipratropium 0.02% Inhal Soln (0.5 mg/2.5 ml) UD IH SCH ×3 (07:38→23:49)
[2019-03-07] MEDS ORDERED: methylPREDNISolone 30 MG in Sodium Chloride 0.9% 50 ML IV SCH (09:00)
--- NOTE | 2019-03-07 09:10 | CP.PCM.PN ---
Subjective - Date & Time of Evaluation Date of Evaluation: 03/07/19 Time of Evaluation: 09:00 - Subjective Subjective: The patient continues to have coughing spells and dyspnea even at rest with wheezing. During her coughing spells she appears to have significant amount of bronchial secretions which she has difficulty raising. Bilateral wheezing is present. She denies any chills. Telemetry shows sinus rhythm with occasional premature atrial beats. Her blood pressure was 136/74 mmHg. Lab data shows stable BUN/creatinine and potassium. She continues to receive intravenous corticosteroids and bronchodilators and antibiotics. Appears stable from cardiovascular point of view. Objective - Vital Signs/Intake and Output Vital Signs (last 24 hours): Temp Pulse Resp BP Pulse Ox 97.7 F 74 18 146/80 97 03/07/19 08:09 03/07/19 08:09 03/07/19 08:09 03/07/19 08:09 03/07/19 08:09 - Medications Medications: Current Medications Albuterol Sulfate (Albuterol 0.083% Inhal Joleen (2.5 Mg/3 Ml) Ud) 2.5 mg INH RQ4 PRN PRN Reason: Shortness of Breath Apixaban (Eliquis) 5 mg PO Q12 [facility]; Protocol Last Admin: 03/06/19 21:18 Dose: 5 mg Dextrose (Dextrose 50% Inj) 0 ml IV STAT PRN; Protocol PRN Reason: Hypoglycemia Protocol Dextrose (Glutose 15) 0 gm PO ONCE PRN; Protocol PRN Reason: Hypoglycemia Protocol Glipizide (Glucotrol) 10 mg PO [facility]AC [facility] Last Admin: 03/07/19 08:00 Dose: Not Given Glucagon (Glucagen Diagnostic Kit) 0 mg IM STAT PRN; Protocol PRN Reason: Hypoglycemia Protocol Guaifenesin/Dextromethorphan (Mucinex-Dm 600-30 Mg) 1 tab PO BID [facility] Last Admin: 03/06/19 16:53 Dose: 1 tab Hydrochlorothiazide (Microzide) 12.5 mg PO DAILY [facility] Last Admin: 03/06/19 09:53 Dose: 12.5 mg Ceftriaxone Sodium 1 gm/ (Sodium Chloride) 100 mls @ 100 mls/hr IVPB DAILY [facility]; Protocol Last Admin: 03/06/19 09:51 Dose: 100 mls/hr Azithromycin 500 mg/ Sodium (Chloride) 250 mls @ 250 mls/hr IVPB DAILY [facility]; Pro tocol Last Admin: 03/06/19 09:52 Dose: 250 mls/hr Insulin Human Lispro (Humalog) 0 units SC ACHS [facility]; Protocol Last Admin: 03/07/19 06:41 Dose: Not Given Ipratropium [place] (Atrovent) 0.5 mg IH RQ8 [facility] Last Admin: 03/07/19 07:38 Dose: 0.5 mg Levalbuterol HCl (Xopenex) 1.25 mg INH RQ8 [facility] Last Admin: 03/07/19 07:38 Dose: 1.25 mg Lisinopril (Zestril) 10 mg PO DAILY [facility] Last Admin: 03/06/19 09:53 Dose: 10 mg Metformin HCl (Glucophage) 850 mg PO BID [facility] Last Admin: 03/06/19 16:54 Dose: 850 mg Methylprednisolone (Solu-Medrol) 30 mg IVP Q12 [facility] Pantoprazole Sodium (Protonix Ec Tab) 40 mg PO DAILY [facility] Last Admin: 03/06/19 09:54 Dose: 40 mg Pravastatin Sodium (Pravachol) 20 mg PO HS [facility] Last Admin: 03/06/19 21:20 Dose: 20 mg Promethazine HCl/Codeine (Phenergan/Codeine Oral Syrup) 5 ml PO Q6 PRN PRN Reason: Cough - Labs Labs: 03/05/19 05:00 03/06/19 05:25 PT 11.2 Seconds (9.8-13.1) 03/04/19 12:45 INR 1.0 03/04/19 12:45 APTT 25.8 Seconds (25.6-37.1) 03/04/19 12:45
[2019-03-07] MEDS: Azithromycin 500 MG in Sodium Chloride 0.9% 250 ML IVPB SCH (09:59)
[2019-03-07] MEDS: Pantoprazole 40 mg EC Tab PO SCH (10:02)
[2019-03-07] MEDS: guaiFENesin-DM 600-30 mg ER Tab PO SCH ×2 (10:04→18:21)
[2019-03-07] MEDS: Promethazine/Cod 6.25mg-10mg/5ml Syr UD PO PRN (13:50)
[2019-03-07] MEDS: Pravastatin Sodium 20 MG TAB PO SCH (21:32)
--- NOTE | 2019-03-07 23:14 | CP.PCM.PN ---
Subjective - Date & Time of Evaluation Date of Evaluation: 03/07/19 Time of Evaluation: 22:22 - Subjective Subjective: Above noted Extended d/w family Objective - Vital Signs/Intake and Output Vital Signs (last 24 hours): Temp Pulse Resp BP Pulse Ox 97.8 F 85 20 158/81 H 95 03/07/19 20:37 03/07/19 20:37 03/07/19 20:37 03/07/19 20:37 03/07/19 20:37 Intake and Output: 03/07/19 03/08/19 18:59 06:59 Intake Total 390 Balance 390 - Medications Medications: Current Medications Albuterol Sulfate (Albuterol 0.083% Inhal Joleen (2.5 Mg/3 Ml) Ud) 2.5 mg INH RQ4 PRN PRN Reason: Shortness of Breath Apixaban (Eliquis) 5 mg PO Q12 [facility]; Protocol Last Admin: 03/07/19 21:29 Dose: 5 mg Dextrose (Dextrose 50% Inj) 0 ml IV STAT PRN; Protocol PRN Reason: Hypoglycemia Protocol Dextrose (Glutose 15) 0 gm PO ONCE PRN; Protocol PRN Reason: Hypoglycemia Protocol Glucagon (Glucagen Diagnostic Kit) 0 mg IM STAT PRN; Protocol PRN Reason: Hypoglycemia Protocol Guaifenesin/Dextromethorphan (Mucinex-Dm 600-30 Mg) 1 tab PO BID [facility] Last Admin: 03/07/19 18:21 Dose: 1 tab Hydrochlorothiazide (Microzide) 12.5 mg PO DAILY [facility] Last Admin: 03/07/19 10:04 Dose: 12.5 mg Ceftriaxone Sodium 1 gm/ (Sodium Chloride) 100 mls @ 100 mls/hr IVPB DAILY [facility]; Protocol Last Admin: 03/07/19 10:00 Dose: 100 mls/hr Azithromycin 500 mg/ Sodium (Chloride) 250 mls @ 250 mls/hr IVPB DAILY [facility]; Protocol Last Admin: 03/07/19 09:59 Dose: 250 mls/hr Insulin Human Lispro (Humalog) 0 units SC ACHS [facility]; Protocol Last Admin: 03/07/19 21:29 Dose: Not Given Ipratropium [place] (Atrovent) 0.5 mg IH RQ8 [facility] Last Admin: 03/07/19 15:32 Dose: 0.5 mg Levalbuterol HCl (Xopenex) 1.25 mg INH RQ8 [facility] Last Admin: 03/07/19 15:32 Dose: 1.25 mg Lisinopril (Zestril) 10 mg PO DAILY [facility] Last Admin: 03/07/19 10:02 Dose: 10 mg Metformin HCl (Glucophage) 850 mg PO BID [facility] Last Admin: 03/07/19 18:21 Dose: 850 mg Methylprednisolone (Solu-Medrol) 30 mg IVP Q12 [facility] Last Admin: 03/07/19 21:39 Dose: 30 mg Pantoprazole Sodium (Protonix Ec Tab) 40 mg PO DAILY [facility] Last Admin: 03/07/19 10:02 Dose: 40 mg Pravastatin Sodium (Pravachol) 20 mg PO HS [facility] Last Admin: 03/07/19 21:32 Dose: 20 mg Promethazine HCl/Codeine (Phenergan/Codeine Oral Syrup) 5 ml PO Q6 PRN PRN Reason: Cough Last Admin: 03/07/19 13:50 Dose: 5 ml - Labs Labs: 03/05/19 05:00 03/06/19 05:25 PT 11.2 Seconds (9.8-13.1) 03/04/19 12:45 INR 1.0 03/04/19 12:45 APTT 25.8 Seconds (25.6-37.1) 03/04/19 12:45 - Respiratory Exam Respiratory Exam: NORMAL BREATHING PATTERN - Cardiovascular Exam Cardiovascular Exam: REGULAR RHYTHM - GI/Abdominal Exam GI & Abdominal Exam: Normal Bowel Sounds Assessment and Plan - Assessment and Plan (Free Text) Assessment: COPD acute excerbation Pneumonia? Steroids Bronchodilators ABX Pulmonary HX CVA Afib on Eliquis Dig started BNP ?? Echo LVH with LV ej fx 65-70% Cardiology NIDDM Cont meds MDS LBP
[2019-03-08 05:45] LABS: HEMOGLOBIN 13.6 g/dL (12.0-16.0); MEAN CELL VOLUME 90.7 fl (81.0-99.0); MEAN CORPUSCULAR HEMOGLOBIN 30.6 pg (27.0-31.0); MEAN CORPUSCULAR HGB CONC 33.8 g/dL (33.0-37.0); RBC 4.44 Mil/uL (3.80-5.20); RED CELL DISTRIBUTION WIDTH 12.6 % (11.5-14.5); WHITE BLOOD COUNT 7.9 K/uL (4.8-10.8)
[2019-03-08 06:10] LABS: ALB/GLOB RATIO 1.5 (1.0-2.1); ALBUMIN 3.5 g/dL (3.5-5.0); ALT/SGPT 49 U/L (9-52); AST/SGOT 23 U/L (14-36); BLOOD UREA NITROGEN 31 mg/dl (7-17); CALCIUM 10.2 mg/dL (8.4-10.2); GFR NON-AFRICAN AMERICAN > 60
[2019-03-08] MEDS: Insulin Lispro (humaLOG) 100 Units/ml Inj SC SCH ×4 (06:40→21:45)
[2019-03-08] MEDS: Levalbuterol 1.25 MG/3 ML Inhal Soln UD INH SCH ×3 (07:35→23:32)
[2019-03-08] MEDS: Ipratropium 0.02% Inhal Soln (0.5 mg/2.5 ml) UD IH SCH ×3 (07:35→23:32)
--- NOTE | 2019-03-08 09:09 | PN ---
D.0ATE: 03/07/2019 ENDO FOLLOWUP NOTE ROOM: 408. SUBJECTIVE: This is an 82-year-old female presenting here with acute exacerbation of COPD and concomitant congestive heart failure and was started on IV steroid therapy with supervening transient hyperglycemic accelerations as noted thereof. Her oral intake, however, remains quite variable at this time and the glucose values have been low normal as noted yesterday. Her glucose levels overnight have ranged from 44-67 and 73 mg/dL. It was 273 at lunchtime today as noted and it was 97 at bedtime last night. Her latest chemistries showed a BUN of 33, sodium 136, potassium 4.8, chloride 96, CO2 of 33, glucose 147 and creatinine 0.8. Her A1c is 6.9% which is near optimal and indicative of very good metabolic profile even prior to this admission. ASSESSMENT This is an 84-year-old female with uncontrolled and decompensated type 2 insulin-requiring diabetes with transient hyperglycemic accelerations related to the intercurrent IV steroid therapy with increased insulin resistance and further impaired glucose tolerance thereof. PLAN OF MANAGEMENT: We will modify her current oral hypoglycemic therapy and actually discontinue the glipizide given as 10 mg b.i.d. before meals as ordered. We will continue her metformin given as 850 mg b.i.d. which is the same dosing of her diabetic therapy at home as noted. We will continue also the low-dose correction scale using Humalog insulin as given. We will obtain serial chemistries accordingly. Padmaja Yo MD
[2019-03-08] MEDS: Azithromycin 500 MG in Sodium Chloride 0.9% 250 ML IVPB SCH (09:20)
[2019-03-08] MEDS: Promethazine/Cod 6.25mg-10mg/5ml Syr UD PO PRN (09:20)
[2019-03-08] MEDS: Pantoprazole 40 mg EC Tab PO SCH (09:22)
[2019-03-08] MEDS: guaiFENesin-DM 600-30 mg ER Tab PO SCH ×2 (09:23→17:18)
[2019-03-08] MEDS: MethylPREDNISolone 40 mg Vial IVP SCH (09:23)
--- NOTE | 2019-03-08 11:04 | CP.PCM.PN ---
<Tatiana Hernandez - Last Filed: 03/08/19 11:55> Subjective - Date & Time of Evaluation Date of Evaluation: 03/08/19 Time of Evaluation: 09:00 - Subjective Subjective: S: Patient seen and examined this morning with Dr. Wen/Pulmonary Patient is c/o worsening cough and mild generalized chest tightness while upright and gets worse with coughing, improves while supine. Improved wheezing today Repeat CXR reviewed this morning VS and labs reviewed PE: Trace dependant edema, no cyanosis or calf tenderness. Pharynx is pink and moist w/o exudate. Neck is supple and trachea midline. No dullness on chest percussion. Decreased Breath sounds bilaterally. Late expiratory, scattered wheezing present in both LLs, improved. Few scattered dry rales in lower lobes. No bronchial breath sounds or egophony. Heart sounds are distant Will continue reduced steroid dosing, decreased today C/w stronger cough suppressant and possible ENT evaluation C/w Azithro and Ceftriaxone C/w Xopenex with ipratropium Q8H AirDuo inhaler on hold for tachycardia Objective - Vital Signs/Intake and Output Vital Signs (last 24 hours): Temp Pulse Resp BP Pulse Ox 97.9 F 80 20 135/66 95 03/08/19 08:35 03/08/19 09:24 03/08/19 08:35 03/08/19 09:24 03/08/19 08:35 - Medications Medications: Current Medications Albuterol Sulfate (Albuterol 0.083% Inhal Joleen (2.5 Mg/3 Ml) Ud) 2.5 mg INH RQ4 PRN PRN Reason: Shortness of Breath Apixaban (Eliquis) 5 mg PO Q12 [facility]; Protocol Last Admin: 03/08/19 09:21 Dose: 5 mg Dextrose (Dextrose 50% Inj) 0 ml IV STAT PRN; Protocol PRN Reason: Hypoglycemia Protocol Dextrose (Glutose 15) 0 gm PO ONCE PRN; Protocol PRN Reason: Hypoglycemia Protocol Glucagon (Glucagen Diagnostic Kit) 0 mg IM STAT PRN; Protocol PRN Reason: Hypoglycemia Protocol Guaifenesin/Dextromethorphan (Mucinex-Dm 600-30 Mg) 1 tab PO BID [facility] Last Admin: 03/08/19 09:23 Dose: 1 tab Hydrochlorothiazide (Microzide) 12.5 mg PO DAILY [facility] Last Admin: 03/08/19 09:23 Dose: 12.5 mg Ceftriaxone Sodium 1 gm/ (Sodium Chloride) 100 mls @ 100 mls/hr IVPB DAILY [facility]; Protocol Last Admin: 03/08/19 09:21 Dose: 100 mls/hr Azithromycin 500 mg/ Sodium (Chloride) 250 mls @ 250 mls/hr IVPB DAILY [facility]; Protocol Last Admin: 03/08/19 09:20 Dose: 250 mls/hr Insulin Human Lispro (Humalog) 0 units SC ACHS [facility]; Protocol Last Admin: 03/08/19 06:40 Dose: Not Given Ipratropium [place] (Atrovent) 0.5 mg IH RQ8 [facility] Last Admin: 03/08/19 07:35 Dose: 0.5 mg Levalbuterol HCl (Xopenex) 1.25 mg INH RQ8 [facility] Last Admin: 03/08/19 07:35 Dose: 1.25 mg Lisinopril (Zestril) 10 mg PO DAILY [facility] Last Admin: 03/08/19 09:24 Dose: 10 mg Metformin HCl (Glucophage) 850 mg PO BID [facility] Last Admin: 03/08/19 09:22 Dose: 850 mg Methylprednisolone (Solu-Medrol) 30 mg IVP DAILY [facility] Pantoprazole Sodium (Protonix Ec Tab) 40 mg PO DAILY [facility] Last Admin: 03/08/19 09:22 Dose: 40 mg Pravastatin Sodium (Pravachol) 20 mg PO HS [facility] Last Admin: 03/07/19 21:32 Dose: 20 mg Promethazine HCl/Codeine (Phenergan/Codeine Oral Syrup) 5 ml PO QID [facility] - Labs Labs: 03/08/19 05:10 03/08/19 05:10 PT 11.2 Seconds (9.8-13.1) 03/04/19 12:45 INR 1.0 03/04/19 12:45 APTT 25.8 Seconds (25.6-37.1) 03/04/19 12:45 - Constitutional Appears: No Acute Distress (+ Coughing) - Head Exam Head Exam: NORMAL INSPECTION - Eye Exam Eye Exam: Normal appearance - Respiratory Exam Additional comments: As above - GI/Abdominal Exam GI & Abdominal Exam: Soft - Neurological Exam Neurological Exam: Alert, Awake, Oriented x3 - Psychiatric Exam Psychiatric exam: Normal Affect - Skin Skin Exam: Normal Color Assessment and Plan (1) COPD exacerbation Assessment & Plan: C/w plan as ordered C/w Abx Status: Acute (2) Exacerbation of asthma Status: Acute (3) Acute bronchitis Status: Acute (4) Wheezing Assessment & Plan: Improved Status: Acute (5) Exogenous obesity Status: Chronic (6) Chronic cough Assessment & Plan: ENT consult Status: Chronic <Willy Wen - Last Filed: 03/08/19 16:30> Subjective - Subjective Subjective: Seen and examined on rounds with the resident and telemetry. Interval events were reviewed and patient was examined. The physical findings were discussed and current diagnosis reviewed. Plan of care was updated to reflect today's findings. The EMR entry by the resident accurately reflects today's visit. Objective - Vital Signs/Intake and Output Vital Signs (last 24 hours): Temp Pulse Resp BP Pulse Ox 97.9 F 86 18 150/83 94 L 03/08/19 16:04 03/08/19 16:04 03/08/19 16:04 03/08/19 16:04 03/08/19 16:04 - Medications Medications: Current Medications Albuterol Sulfate (Albuterol 0.083% Inhal Joleen (2.5 Mg/3 Ml) Ud) 2.5 mg INH RQ4 PRN PRN Reason: Shortness of Breath Apixaban (Eliquis) 5 mg PO Q12 [facility]; Protocol Last Admin: 03/08/19 09:21 Dose: 5 mg Dextrose (Dextrose 50% Inj) 0 ml IV STAT PRN; Protocol PRN Reason: Hypoglycemia Protocol Dextrose (Glutose 15) 0 gm PO ONCE PRN; Protocol PRN Reason: Hypoglycemia Protocol Glucagon (Glucagen Diagnostic Kit) 0 mg IM STAT PRN; Protocol PRN Reason: Hypoglycemia Protocol Guaifenesin/Dextromethorphan (Mucinex-Dm 600-30 Mg) 1 tab PO BID [facility] Last Admin: 03/08/19 09:23 Dose: 1 tab Hydrochlorothiazide (Microzide) 12.5 mg PO DAILY [facility] Last Admin: 03/08/19 09:23 Dose: 12.5 mg Ceftriaxone Sodium 1 gm/ (Sodium Chloride) 100 mls @ 100 mls/hr IVPB DAILY [facility]; Protocol Last Admin: 03/08/19 09:21 Dose: 100 mls/hr Azithromycin 500 mg/ Sodium (Chloride) 250 mls @ 250 mls/hr IVPB DAILY [facility]; Protocol Last Admin: 03/08/19 09:20 Dose: 250 mls/hr Insulin Human Lispro (Humalog) 0 units SC ACHS [facility]; Protocol Last Admin: 03/08/19 13:51 Dose: Not Given Ipratropium [place] (Atrovent) 0.5 mg IH RQ8 [facility] Last Admin: 03/08/19 15:28 Dose: 0.5 mg Levalbuterol HCl (Xopenex) 1.25 mg INH RQ8 [facility] Last Admin: 03/08/19 15:28 Dose: 1.25 mg Lisinopril (Zestril) 10 mg PO DAILY [facility] Last Admin: 03/08/19 09:24 Dose: 10 mg Metformin HCl (Glucophage) 850 mg PO BID [facility] Last Admin: 03/08/19 09:22 Dose: 850 mg Methylprednisolone (Solu-Medrol) 30 mg IVP DAILY [facility] Pantoprazole Sodium (Protonix Ec Tab) 40 mg PO DAILY [facility] Last Admin: 03/08/19 09:22 Dose: 40 mg Pravastatin Sodium (Pravachol) 20 mg PO HS [facility] Last Admin: 03/07/19 21:32 Dose: 20 mg Promethazine HCl/Codeine (Phenergan/Codeine Oral Syrup) 5 ml PO QID [facility] Last Admin: 03/08/19 15:08 Dose: 5 ml - Labs Labs: 03/08/19 05:10 03/08/19 05:10 PT 11.2 Seconds (9.8-13.1) 03/04/19 12:45 INR 1.0 03/04/19 12:45 APTT 25.8 Seconds (25.6-37.1) 03/04/19 12:45 Assessment and Plan (1) Wheezing Status: Acute (2) Exacerbation of asthma Status: Acute (3) Acute bronchitis Status: Acute (4) Respiratory distress Status: Acute (5) Exogenous obesity Status: Chronic
[2019-03-08] MEDS: Promethazine/Cod 6.25mg-10mg/5ml Syr UD PO SCH ×3 (15:08→21:35)
--- NOTE | 2019-03-08 19:19 | PN ---
DATE: 03/08/2019 LOCATION: Room 408. SUBJECTIVE: This is an 84-year-old female with recent acute exacerbation of COPD and concomitant congestive heart failure and is now being followed closely for metabolic management. Her glycemic levels are fluctuating with the intercurrent IV steroid therapy as given. Her glucose values overnight have ranged from 135 to 197 mg/dL. LABORATORY DATA: Her chemistries showed a BUN of 31, sodium 134, potassium 5.2, chloride 92, CO2 of 25 and creatinine 0.8. Her subsequent thyroid studies showed a free T4 of 1 with a TSH of . ASSESSMENT This is an 84-year-old female with acute exacerbation of chronic obstructive pulmonary disease currently on a tapering intravenous steroid therapy as given with supervening marked hyperglycemic accelerations as noted thereof. She also has recent uncontrolled type 2 insulin-requiring diabetes with transient hyperglycemic accelerations from the intravenous steroid therapy as given. She should improve clinically and metabolically as noted thereof. PLAN OF MANAGEMENT: We will continue the low-dose correction scale using Humalog insulin as given. We will also continue her metformin given at 850 mg b.i.d. with meals as ordered. We will obtain serial chemistries and supplement accordingly as needed. We will follow. Padmaja Yo MD
--- NOTE | 2019-03-08 20:32 | CP.PCM.PN ---
Subjective - Date & Time of Evaluation Date of Evaluation: 03/08/19 Time of Evaluation: 22:22 - Subjective Subjective: Pulmonary note appreciated Objective - Vital Signs/Intake and Output Vital Signs (last 24 hours): Temp Pulse Resp BP Pulse Ox 97.8 F 93 H 18 172/92 H 96 03/08/19 19:40 03/08/19 19:40 03/08/19 19:40 03/08/19 19:40 03/08/19 19:40 - Medications Medications: Current Medications Albuterol Sulfate (Albuterol 0.083% Inhal Joleen (2.5 Mg/3 Ml) Ud) 2.5 mg INH RQ4 PRN PRN Reason: Shortness of Breath Apixaban (Eliquis) 5 mg PO Q12 [facility]; Protocol Last Admin: 03/08/19 09:21 Dose: 5 mg Dextrose (Dextrose 50% Inj) 0 ml IV STAT PRN; Protocol PRN Reason: Hypoglycemia Protocol Dextrose (Glutose 15) 0 gm PO ONCE PRN; Protocol PRN Reason: Hypoglycemia Protocol Glucagon (Glucagen Diagnostic Kit) 0 mg IM STAT PRN; Protocol PRN Reason: Hypoglycemia Protocol Guaifenesin/Dextromethorphan (Mucinex-Dm 600-30 Mg) 1 tab PO BID [facility] Last Admin: 03/08/19 17:18 Dose: 1 tab Hydrochlorothiazide (Microzide) 12.5 mg PO DAILY [facility] Last Admin: 03/08/19 09:23 Dose: 12.5 mg Ceftriaxone Sodium 1 gm/ (Sodium Chloride) 100 mls @ 100 mls/hr IVPB DAILY [facility]; Protocol Last Admin: 03/08/19 09:21 Dose: 100 mls/hr Azithromycin 500 mg/ Sodium (Chloride) 250 mls @ 250 mls/hr IVPB DAILY [facility]; Protocol Last Admin: 03/08/19 09:20 Dose: 250 mls/hr Insulin Human Lispro (Humalog) 0 units SC ACHS [facility]; Protocol Last Admin: 03/08/19 17:17 Dose: Not Given Ipratropium [place] (Atrovent) 0.5 mg IH RQ8 [facility] Last Admin: 03/08/19 15:28 Dose: 0.5 mg Levalbuterol HCl (Xopenex) 1.25 mg INH RQ8 [facility] Last Admin: 03/08/19 15:28 Dose: 1.25 mg Lisinopril (Zestril) [address] [facility] Last Admin: 03/08/19 09:24 Dose: 10 mg Metformin HCl (Glucophage) [address] [facility] Last Admin: 03/08/19 17:18 Dose: 850 mg Methylprednisolone (Solu-Medrol) [address] [facility] Pantoprazole Sodium (Protonix Ec Tab) [address] [facility] Last Admin: 03/08/19 09:22 Dose: 40 mg Pravastatin Sodium (Pravachol) [address] [facility] Last Admin: 03/07/19 21:32 Dose: 20 mg Promethazine HCl/Codeine (Phenergan/Codeine Oral Syrup) [address] [facility] Last Admin: 03/08/19 17:18 Dose: 5 ml - Labs Labs: 03/08/19 05:10 03/08/19 18:20 PT 11.2 Seconds (9.8-13.1) 03/04/19 12:45 INR 1.0 03/04/19 12:45 APTT 25.8 Seconds (25.6-37.1) 03/04/19 12:45 - Respiratory Exam Respiratory Exam: NORMAL BREATHING PATTERN - Cardiovascular Exam Cardiovascular Exam: REGULAR RHYTHM - GI/Abdominal Exam GI & Abdominal Exam: Normal Bowel Sounds Assessment and Plan - Assessment and Plan (Free Text) Assessment: COPD acute excerbation Pneumonia? Steroids Bronchodilators ABX Pulmonary HX CVA Afib on Eliquis Dig started BNP ?? Echo LVH with LV ej fx 65-70% Cardiology Thyroid ?? Endo NIDDM Cont meds MDS LBP
[2019-03-08] MEDS ORDERED: Magnesium Hydroxide Susp 30 ml UD PO ONE (21:00)
[2019-03-08] MEDS: Pravastatin Sodium 20 MG TAB PO SCH (21:35)
[2019-03-09 06:04] LABS: MEAN CORPUSCULAR HEMOGLOBIN 30.8 pg (27.0-31.0); MEAN CORPUSCULAR HGB CONC 33.8 g/dL (33.0-37.0); RBC 4.54 Mil/uL (3.80-5.20); RED CELL DISTRIBUTION WIDTH 12.6 % (11.5-14.5); WHITE BLOOD COUNT 9.4 K/uL (4.8-10.8)
[2019-03-09 06:26] LABS: ALB/GLOB RATIO 1.4 (1.0-2.1); ALBUMIN 3.6 g/dL (3.5-5.0); ALT/SGPT 49 U/L (9-52); AST/SGOT 17 U/L (14-36); BLOOD UREA NITROGEN 28 mg/dl (7-17); CALCIUM 10.3 mg/dL (8.4-10.2); GFR NON-AFRICAN AMERICAN > 60
[2019-03-09] MEDS: Insulin Lispro (humaLOG) 100 Units/ml Inj SC SCH ×4 (06:54→21:39)
[2019-03-09] MEDS: Levalbuterol 1.25 MG/3 ML Inhal Soln UD INH SCH ×3 (07:10→23:07)
[2019-03-09] MEDS: Ipratropium 0.02% Inhal Soln (0.5 mg/2.5 ml) UD IH SCH ×3 (07:10→23:07)
[2019-03-09] MEDS: guaiFENesin-DM 600-30 mg ER Tab PO SCH ×2 (09:35→17:49)
[2019-03-09] MEDS: Pantoprazole 40 mg EC Tab PO SCH (09:35)
[2019-03-09] MEDS: Azithromycin 500 MG in Sodium Chloride 0.9% 250 ML IVPB SCH (09:36)
[2019-03-09] MEDS: MethylPREDNISolone 40 mg Vial IVP SCH (10:05)
[2019-03-09] MEDS: Promethazine/Cod 6.25mg-10mg/5ml Syr UD PO SCH ×4 (10:05→21:29)
--- NOTE | 2019-03-09 10:58 | CP.PCM.PN ---
<Tatiana Hernandez - Last Filed: 03/09/19 11:04> Subjective - Date & Time of Evaluation Date of Evaluation: 03/09/19 Time of Evaluation: 08:00 - Subjective Subjective: Patient seen and examined this morning with Dr. Wen/Pulmonary Patient is still coughing but son at bedside reports improved cough since yesterday + mild generalized chest tightness with coughing VS and labs reviewed this morning: Increased Co2 (will get ABG this morning) PE: Trace dependant edema, no cyanosis or calf tenderness. Pharynx is pink and moist w/o exudate. Neck is supple and trachea midline. No dullness on chest percussion. Decreased Breath sounds bilaterally. Late expiratory, scattered wheezing present in both LLs, Few scattered dry rales in lower lobes. No bronchial breath sounds or egophony. Heart sounds are distant Will continue reduced steroid dosing, decreased today C/w stronger cough suppressant and possible ENT evaluation C/w Azithro C/w Xopenex with ipratropium Q8H AirDuo inhaler on hold for tachycardia Increased Co2 (will get ABG this morning, f/u) Will STOP Lisinopril for now (Cough) and Increase Norvasc to 5mg Objective - Vital Signs/Intake and Output Vital Signs (last 24 hours): Temp Pulse Resp BP Pulse Ox 98.1 F 99 H 18 158/70 H 96 03/09/19 08:24 03/09/19 08:24 03/09/19 08:24 03/09/19 08:24 03/09/19 08:24 - Medications Medications: Current Medications Albuterol Sulfate (Albuterol 0.083% Inhal Joleen (2.5 Mg/3 Ml) Ud) 2.5 mg INH RQ4 PRN PRN Reason: Shortness of Breath Amlodipine Besylate (Norvasc) 5 mg PO DAILY [facility] Last Admin: 03/09/19 09:35 Dose: 5 mg Apixaban (Eliquis) 5 mg PO Q12 [facility]; Protocol Last Admin: 03/09/19 09:35 Dose: 5 mg Dextrose (Dextrose 50% Inj) 0 ml IV STAT PRN; Protocol PRN Reason: Hypoglycemia Protocol Dextrose (Glutose 15) 0 gm PO ONCE PRN; Protocol PRN Reason: Hypoglycemia Protocol Glucagon (Glucagen Diagnostic Kit) 0 mg IM STAT PRN; Protocol PRN Reason: Hypoglycemia Protocol Guaifenesin/Dextromethorphan (Mucinex-Dm 600-30 Mg) 1 tab PO BID [facility] Last Admin: 03/09/19 09:35 Dose: 1 tab Hydrochlorothiazide (Microzide) 12.5 mg PO DAILY [facility] Last Admin: 03/09/19 09:35 Dose: 12.5 mg Ceftriaxone Sodium 1 gm/ (Sodium Chloride) 100 mls @ 100 mls/hr IVPB DAILY [facility]; Protocol Last Admin: 03/09/19 09:34 Dose: 100 mls/hr Azithromycin 500 mg/ Sodium (Chloride) 250 mls @ 250 mls/hr IVPB DAILY [facility]; Protocol Last Admin: 03/09/19 09:36 Dose: 250 mls/hr Insulin Human Lispro (Humalog) 0 units SC ACHS [facility]; Protocol Last Admin: 03/09/19 06:54 Dose: Not Given Ipratropium [place] (Atrovent) 0.5 mg IH RQ8 [facility] Last Admin: 03/09/19 07:10 Dose: 0.5 mg Levalbuterol HCl (Xopenex) 1.25 mg INH RQ8 [facility] Last Admin: 03/09/19 07:10 Dose: 1.25 mg Lisinopril (Zestril) 10 mg PO DAILY [facility] Last Admin: 03/08/19 09:24 Dose: 10 mg Metformin HCl (Glucophage) 850 mg PO BID [facility] Last Admin: 03/09/19 09:35 Dose: 850 mg Methylprednisolone (Solu-Medrol) 30 mg IVP DAILY [facility] Last Admin: 03/09/19 10:05 Dose: 30 mg Pantoprazole Sodium (Protonix Ec Tab) 40 mg PO DAILY [facility] Last Admin: 03/09/19 09:35 Dose: 40 mg Pravastatin Sodium (Pravachol) 20 mg PO HS [facility] Last Admin: 03/08/19 21:35 Dose: 20 mg Promethazine HCl/Codeine (Phenergan/Codeine Oral Syrup) 5 ml PO QID [facility] Last Admin: 03/09/19 10:05 Dose: 5 ml - Labs Labs: 03/09/19 04:40 03/09/19 04:40 PT 11.2 Seconds (9.8-13.1) 03/04/19 12:45 INR 1.0 03/04/19 12:45 APTT 25.8 Seconds (25.6-37.1) 03/04/19 12:45 Assessment and Plan (1) COPD exacerbation Assessment & Plan: CO2 retention on labs, F/u ABG today C/w plan as ordered C/w Abx Status: Acute (2) Exacerbation of asthma Status: Acute (3) Acute bronchitis Status: Acute (4) Wheezing Assessment & Plan: Improved Status: Acute (5) Exogenous obesity Status: Chronic (6) Chronic cough Assessment & Plan: F/u ENT Consult Will STOP Lisinopril for now and Increase Norvasc to 5mg (may need higher dose to control BP) Status: Chronic <Willy Wen - Last Filed: 03/10/19 11:27> Subjective - Subjective Subjective: The patient was seen and examined on rounds with the resident in telemetry. Physical findings and interim events were reviewed. Current diagnosis and plan of care were discussed. The EMR entry made by the resident is an accurate description of this event. Objective - Vital Signs/Intake and Output Vital Signs (last 24 hours): Temp Pulse Resp BP Pulse Ox 97.9 F 85 18 117/55 L 94 L 03/10/19 08:00 03/10/19 08:00 03/10/19 08:00 03/10/19 08:00 03/10/19 08:00 - Medications Medications: Current Medications Albuterol Sulfate (Albuterol 0.083% Inhal Joleen (2.5 Mg/3 Ml) Ud) 2.5 mg INH RQ4 PRN PRN Reason: Shortness of Breath Amlodipine Besylate (Norvasc) 5 mg PO DAILY [facility] Last Admin: 03/10/19 09:45 Dose: 5 mg Apixaban (Eliquis) 5 mg PO Q12 [facility]; Protocol Last Admin: 03/10/19 09:45 Dose: 5 mg Dextrose (Dextrose 50% Inj) 0 ml IV STAT PRN; Protocol PRN Reason: Hypoglycemia Protocol Dextrose (Glutose 15) 0 gm PO ONCE PRN; Protocol PRN Reason: Hypoglycemia Protocol Glucagon (Glucagen Diagnostic Kit) 0 mg IM STAT PRN; Protocol PRN Reason: Hypoglycemia Protocol Guaifenesin/Dextromethorphan (Mucinex-Dm 600-30 Mg) 1 tab PO BID [facility] Last Admin: 03/10/19 09:45 Dose: 1 tab Hydrochlorothiazide (Microzide) 12.5 mg PO DAILY [facility] Last Admin: 03/10/19 09:44 Dose: 12.5 mg Azithromycin 500 mg/ Sodium (Chloride) 250 mls @ 250 mls/hr IVPB DAILY [facility]; Protocol Last Admin: 03/10/19 09:44 Dose: 250 mls/hr Insulin Human Lispro (Humalog) 0 units SC ACHS [facility]; Protocol Last Admin: 03/10/19 08:00 Dose: Not Given Ipratropium [place] (Atrovent) 0.5 mg IH RQ8 [facility] Last Admin: 03/10/19 07:42 Dose: 0.5 mg Levalbuterol HCl (Xopenex) 1.25 mg INH RQ8 [facility] Last Admin: 03/10/19 07:42 Dose: 1.25 mg Lisinopril (Zestril) 10 mg PO DAILY [facility] Last Admin: 03/08/19 09:24 Dose: 10 mg Metformin HCl (Glucophage) 850 mg PO BID [facility] Last Admin: 03/10/19 09:45 Dose: 850 mg Pantoprazole Sodium (Protonix Ec Tab) 40 mg PO DAILY [facility] Last Admin: 03/10/19 09:45 Dose: 40 mg Pravastatin Sodium (Pravachol) 20 mg PO HS [facility] Last Admin: 03/09/19 21:29 Dose: 20 mg Prednisone (Prednisone Tab) 10 mg PO BID [facility] Promethazine HCl/Codeine (Phenergan/Codeine Oral Syrup) 5 ml PO QID [facility] Last Admin: 03/10/19 09:44 Dose: 5 ml - Labs Labs: 03/09/19 04:40 03/10/19 10:15 PT 11.2 Seconds (9.8-13.1) 03/04/19 12:45 INR 1.0 03/04/19 12:45 APTT 25.8 Seconds (25.6-37.1) 03/04/19 12:45 Assessment and Plan (1) Wheezing Status: Acute (2) Exacerbation of asthma Status: Acute (3) Acute bronchitis Status: Acute (4) Respiratory distress Status: Acute (5) Exogenous obesity Status: Chronic
[2019-03-09 14:19] LABS: ABG ALLEN TEST YES; ARTERIAL BLOOD GAS HCO3 31.8 mmol/L (21-28); ARTERIAL BLOOD GAS HEMOGLOBIN 14.7 g/dL (11.7-17.4); ARTERIAL BLOOD GAS O2 CAPACITY 19.9 mL/dL (16-24); ARTERIAL BLOOD GAS O2 CONTENT 19.5 ML/dL (15-23); ARTERIAL BLOOD GAS O2 SAT 98.1 % (95-98); ARTERIAL BLOOD GAS PCO2 60 mm/Hg (35-45); ARTERIAL BLOOD GAS PH 7.39 (7.35-7.45); ARTERIAL BLOOD GAS PO2 81 mm/Hg (80-100); ARTERIAL BLOOD GAS TCO2 38.1 mmol/L (22-28)
--- NOTE | 2019-03-09 14:41 | CP.PCM.PCO ---
Assessment & Plan - Assessment and Plan (Free Text) Assessment: ABG results noted, PCO2 60, PO2 81, notified pt. started on HF via NC 30 L, 28% FIO2
--- NOTE | 2019-03-09 20:15 | PN ---
DATE: 03/09/2019 ENDOCRINOLOGY FOLLOWUP NOTE SUBJECTIVE: This is an 84-year-old female with recent acute exacerbation of COPD, currently on IV steroid therapy given as a tapering dose once daily as ordered. Her glycemic levels are fluctuating as given. Her glucose levels have ranged from 127 to 179 mg/dL. It was 182 at bedtime last night. Her chemistries showed a BUN of 28, sodium 136, potassium 4.8, chloride 90, CO2 of 40, and glucose . ASSESSMENT: This is an 84-year-old female with uncontrolled and decompensated type 2 insulin-requiring diabetes with transient hyperglycemic accelerations related to the intercurrent IV steroid therapy with increased insulin resistance and further impaired glucose tolerance thereof. PLAN OF MANAGEMENT: We will continue the low-dose correction scale using Humalog insulin as given. We will also continue the dual oral hypoglycemic therapy with metformin given as 850 mg b.i.d. and we will consider the addition of glipizide therapy as indicated. We will obtain serial chemistries accordingly. Padmaja Yo MD
--- NOTE | 2019-03-09 20:24 | CP.PCM.PN ---
Subjective - Date & Time of Evaluation Date of Evaluation: 03/09/19 Time of Evaluation: 22:22 - Subjective Subjective: Feels better Persistant cough ABG noted Extended discussion with family Objective - Vital Signs/Intake and Output Vital Signs (last 24 hours): Temp Pulse Resp BP Pulse Ox 98.1 F 98 H 18 143/74 94 L 03/09/19 19:36 03/09/19 19:36 03/09/19 19:36 03/09/19 19:36 03/09/19 19:36 - Medications Medications: Current Medications Albuterol Sulfate (Albuterol 0.083% Inhal Joleen (2.5 Mg/3 Ml) Ud) 2.5 mg INH RQ4 PRN PRN Reason: Shortness of Breath Amlodipine Besylate (Norvasc) 5 mg PO DAILY [facility] Last Admin: 03/09/19 09:35 Dose: 5 mg Apixaban (Eliquis) 5 mg PO Q12 [facility]; Protocol Last Admin: 03/09/19 09:35 Dose: 5 mg Dextrose (Dextrose 50% Inj) 0 ml IV STAT PRN; Protocol PRN Reason: Hypoglycemia Protocol Dextrose (Glutose 15) 0 gm PO ONCE PRN; Protocol PRN Reason: Hypoglycemia Protocol Glucagon (Glucagen Diagnostic Kit) 0 mg IM STAT PRN; Protocol PRN Reason: Hypoglycemia Protocol Guaifenesin/Dextromethorphan (Mucinex-Dm 600-30 Mg) 1 tab PO BID [facility] Last Admin: 03/09/19 17:49 Dose: 1 tab Hydrochlorothiazide (Microzide) 12.5 mg PO DAILY [facility] Last Admin: 03/09/19 09:35 Dose: 12.5 mg Ceftriaxone Sodium 1 gm/ (Sodium Chloride) 100 mls @ 100 mls/hr IVPB DAILY [facility]; Protocol Last Admin: 03/09/19 09:34 Dose: 100 mls/hr Azithromycin 500 mg/ Sodium (Chloride) 250 mls @ 250 mls/hr IVPB DAILY [facility]; Protocol Last Admin: 03/09/19 09:36 Dose: 250 mls/hr Insulin Human Lispro (Humalog) 0 units SC ACHS [facility]; Protocol Last Admin: 03/09/19 17:48 Dose: 3 units Ipratropium [place] (Atrovent) 0.5 mg IH RQ8 [facility] Last Admin: 03/09/19 15:47 Dose: 0.5 mg Levalbuterol HCl (Xopenex) 1.25 mg INH RQ8 [facility] Last Admin: 03/09/19 15:47 Dose: 1.25 mg Lisinopril (Zestril) 10 mg PO DAILY [facility] Last Admin: 03/08/19 09:24 Dose: 10 mg Metformin HCl (Glucophage) 850 mg PO BID [facility] Last Admin: 03/09/19 17:48 Dose: 850 mg Methylprednisolone (Solu-Medrol) 30 mg IVP DAILY [facility] Last Admin: 03/09/19 10:05 Dose: 30 mg Pantoprazole Sodium (Protonix Ec Tab) 40 mg PO DAILY [facility] Last Admin: 03/09/19 09:35 Dose: 40 mg Pravastatin Sodium (Pravachol) 20 mg PO HS [facility] Last Admin: 03/08/19 21:35 Dose: 20 mg Promethazine HCl/Codeine (Phenergan/Codeine Oral Syrup) 5 ml PO QID [facility] Last Admin: 03/09/19 17:48 Dose: 5 ml - Labs Labs: 03/09/19 04:40 03/09/19 04:40 PT 11.2 Seconds (9.8-13.1) 03/04/19 12:45 INR 1.0 03/04/19 12:45 APTT 25.8 Seconds (25.6-37.1) 03/04/19 12:45 - Respiratory Exam Respiratory Exam: NORMAL BREATHING PATTERN - Cardiovascular Exam Cardiovascular Exam: REGULAR RHYTHM - GI/Abdominal Exam GI & Abdominal Exam: Normal Bowel Sounds Assessment and Plan - Assessment and Plan (Free Text) Assessment: COPD acute excerbation Pneumonia? Persistent cough LALITO d/c Steroids Bronchodilators ABX O2 Pulmonary HX CVA Afib on Eliquis HTN LALITO d/c Norvasc Dig started BNP ?? Echo LVH with LV ej fx 65-70% Cardiology Thyroid ?? Endo NIDDM Cont meds MDS LBP
[2019-03-09] MEDS: Pravastatin Sodium 20 MG TAB PO SCH (21:29)
[2019-03-10] MEDS: Ipratropium 0.02% Inhal Soln (0.5 mg/2.5 ml) UD IH SCH ×2 (07:42→16:56)
[2019-03-10] MEDS: Levalbuterol 1.25 MG/3 ML Inhal Soln UD INH SCH ×2 (07:42→16:56)
[2019-03-10] MEDS: Insulin Lispro (humaLOG) 100 Units/ml Inj SC SCH ×4 (08:00→21:17)
[2019-03-10] MEDS: MethylPREDNISolone 40 mg Vial IVP SCH (09:43)
[2019-03-10] MEDS: Azithromycin 500 MG in Sodium Chloride 0.9% 250 ML IVPB SCH (09:44)
[2019-03-10] MEDS: Promethazine/Cod 6.25mg-10mg/5ml Syr UD PO SCH ×4 (09:44→21:14)
[2019-03-10] MEDS: guaiFENesin-DM 600-30 mg ER Tab PO SCH ×2 (09:45→16:21)
[2019-03-10] MEDS: Pantoprazole 40 mg EC Tab PO SCH (09:45)
--- NOTE | 2019-03-10 10:21 | CP.PCM.PN ---
<Tatiana Hernandez - Last Filed: 03/10/19 10:25> Subjective - Date & Time of Evaluation Date of Evaluation: 03/10/19 Time of Evaluation: 08:30 - Subjective Subjective: Patient seen and examined this morning with Dr. Wen/Pulmonary Seem somnolent this morning Patient is still coughing but significant improvement as per patient VS reviewed this morning No new blood work, will f/u BMP today (If still high Co2, consider acetazolami de) ABG from yesterday reviewed and patient was placed on BIPAP but patient refused BIPAP PE: Trace dependant edema, no cyanosis or calf tenderness. Pharynx is pink and moist w/o exudate. Neck is supple and trachea midline. No dullness on chest percussion. Decreased Breath sounds bilaterally. Late expiratory, scattered wheezing present in both LLs, Few scattered dry rales in lower lobes. No bronchial breath sounds or egophony. Heart sounds are distant Will continue reduced steroid dosing, decreased today to PO C/w stronger cough suppressant and possible ENT evaluation C/w Azithro C/w Xopenex with ipratropium Q8H AirDuo inhaler on hold for tachycardia ABG reviewed from yesterday: Patient refused BIPAP last night F/u BMP today if still high CO2, consider acetazolamide STOP Lisinopril for now (Cough) and Increase Norvasc to 5mg Pending ENT consult Objective - Vital Signs/Intake and Output Vital Signs (last 24 hours): Temp Pulse Resp BP Pulse Ox 97.9 F 85 18 117/55 L 94 L 03/10/19 08:00 03/10/19 08:00 03/10/19 08:00 03/10/19 08:00 03/10/19 08:00 - Medications Medications: Current Medications Albuterol Sulfate (Albuterol 0.083% Inhal Joleen (2.5 Mg/3 Ml) Ud) 2.5 mg INH RQ4 PRN PRN Reason: Shortness of Breath Amlodipine Besylate (Norvasc) 5 mg PO DAILY [facility] Last Admin: 03/10/19 09:45 Dose: 5 mg Apixaban (Eliquis) 5 mg PO Q12 [facility]; Protocol Last Admin: 03/10/19 09:45 Dose: 5 mg Dextrose (Dextrose 50% Inj) 0 ml IV STAT PRN; Protocol PRN Reason: Hypoglycemia Protocol Dextrose (Glutose 15) 0 gm PO ONCE PRN; Protocol PRN Reason: Hypoglycemia Protocol Glucagon (Glucagen Diagnostic Kit) 0 mg IM STAT PRN; Protocol PRN Reason: Hypoglycemia Protocol Guaifenesin/Dextromethorphan (Mucinex-Dm 600-30 Mg) 1 tab PO BID [facility] Last Admin: 03/10/19 09:45 Dose: 1 tab Hydrochlorothiazide (Microzide) 12.5 mg PO DAILY [facility] Last Admin: 03/10/19 09:44 Dose: 12.5 mg Azithromycin 500 mg/ Sodium (Chloride) 250 mls @ 250 mls/hr IVPB DAILY [facility]; Pr otocol Last Admin: 03/10/19 09:44 Dose: 250 mls/hr Insulin Human Lispro (Humalog) 0 units SC ACHS [facility]; Protocol Last Admin: 03/10/19 08:00 Dose: Not Given Ipratropium [place] (Atrovent) 0.5 mg IH RQ8 [facility] Last Admin: 03/10/19 07:42 Dose: 0.5 mg Levalbuterol HCl (Xopenex) 1.25 mg INH RQ8 [facility] Last Admin: 03/10/19 07:42 Dose: 1.25 mg Lisinopril (Zestril) 10 mg PO DAILY [facility] Last Admin: 03/08/19 09:24 Dose: 10 mg Metformin HCl (Glucophage) 850 mg PO BID [facility] Last Admin: 03/10/19 09:45 Dose: 850 mg Methylprednisolone (Solu-Medrol) 30 mg IVP DAILY [facility] Last Admin: 03/10/19 09:43 Dose: 30 mg Pantoprazole Sodium (Protonix Ec Tab) 40 mg PO DAILY [facility] Last Admin: 03/10/19 09:45 Dose: 40 mg Pravastatin Sodium (Pravachol) 20 mg PO HS [facility] Last Admin: 03/09/19 21:29 Dose: 20 mg Promethazine HCl/Codeine (Phenergan/Codeine Oral Syrup) 5 ml PO QID [facility] Last Admin: 03/10/19 09:44 Dose: 5 ml - Labs Labs: 03/09/19 04:40 03/09/19 04:40 PT 11.2 Seconds (9.8-13.1) 03/04/19 12:45 INR 1.0 03/04/19 12:45 APTT 25.8 Seconds (25.6-37.1) 03/04/19 12:45 Assessment and Plan (1) COPD exacerbation Assessment & Plan: Will continue reduced steroid dosing, decreased today C/w stronger cough suppressant and possible ENT evaluation C/w Azithro C/w Xopenex with ipratropium Q8H AirDuo inhaler on hold for tachycardia ABG reviewed from yesterday: Patient refused BIPAP last night F/u BMP today if still high CO2, consider acetazolamide STOP Lisinopril for now (Cough) and Increase Norvasc to 5mg Status: Acute (2) Exacerbation of asthma Status: Acute (3) Acute bronchitis Status: Acute (4) Wheezing Assessment & Plan: Improved Status: Acute (5) Exogenous obesity Status: Chronic (6) Chronic cough Assessment & Plan: Improved Pending ENT consult Status: Chronic <Willy Wen - Last Filed: 03/10/19 11:30> Subjective - Subjective Subjective: The patient was seen and examined together with the residents this AM on rounds in telemetry. The interim events and physical findings were discussed. Plan of care and current diagnosis were formulated. The EMR entry by the resident accurately reflects this activity. Objective - Vital Signs/Intake and Output Vital Signs (last 24 hours): Temp Pulse Resp BP Pulse Ox 97.9 F 85 18 117/55 L 94 L 03/10/19 08:00 03/10/19 08:00 03/10/19 08:00 03/10/19 08:00 03/10/19 08:00 - Medications Medications: Current Medications Albuterol Sulfate (Albuterol 0.083% Inhal Joleen (2.5 Mg/3 Ml) Ud) 2.5 mg INH RQ4 PRN PRN Reason: Shortness of Breath Amlodipine Besylate (Norvasc) 5 mg PO DAILY [facility] Last Admin: 03/10/19 09:45 Dose: 5 mg Apixaban (Eliquis) 5 mg PO Q12 [facility]; Protocol Last Admin: 03/10/19 09:45 Dose: 5 mg Dextrose (Dextrose 50% Inj) 0 ml IV STAT PRN; Protocol PRN Reason: Hypoglycemia Protocol Dextrose (Glutose 15) 0 gm PO ONCE PRN; Protocol PRN Reason: Hypoglycemia Protocol Glucagon (Glucagen Diagnostic Kit) 0 mg IM STAT PRN; Protocol PRN Reason: Hypoglycemia Protocol Guaifenesin/Dextromethorphan (Mucinex-Dm 600-30 Mg) 1 tab PO BID [facility] Last Admin: 03/10/19 09:45 Dose: 1 tab Hydrochlorothiazide (Microzide) 12.5 mg PO DAILY [facility] Last Admin: 03/10/19 09:44 Dose: 12.5 mg Azithromycin 500 mg/ Sodium (Chloride) 250 mls @ 250 mls/hr IVPB DAILY [facility]; Protocol Last Admin: 03/10/19 09:44 Dose: 250 mls/hr Insulin Human Lispro (Humalog) 0 units SC ACHS [facility]; Protocol Last Admin: 03/10/19 08:00 Dose: Not Given Ipratropium Cel[place] (Atrovent) 0.5 mg IH RQ8 [facility] Last Admin: 03/10/19 07:42 Dose: 0.5 mg Levalbuterol HCl (Xopenex) 1.25 mg INH RQ8 [facility] Last Admin: 03/10/19 07:42 Dose: 1.25 mg Lisinopril (Zestril) 10 mg PO DAILY [facility] Last Admin: 03/08/19 09:24 Dose: 10 mg Metformin HCl (Glucophage) 850 mg PO BID [facility] Last Admin: 03/10/19 09:45 Dose: 850 mg Pantoprazole Sodium (Protonix Ec Tab) 40 mg PO DAILY [facility] Last Admin: 03/10/19 09:45 Dose: 40 mg Pravastatin Sodium (Pravachol) 20 mg PO HS [facility] Last Admin: 03/09/19 21:29 Dose: 20 mg Prednisone (Prednisone Tab) 10 mg PO BID [facility] Promethazine HCl/Codeine (Phenergan/Codeine Oral Syrup) 5 ml PO QID [facility] Last Admin: 03/10/19 09:44 Dose: 5 ml - Labs Labs: 03/10/19 10:45 03/10/19 10:15 PT 11.2 Seconds (9.8-13.1) 03/04/19 12:45 INR 1.0 03/04/19 12:45 APTT 25.8 Seconds (25.6-37.1) 03/04/19 12:45 Assessment and Plan (1) Wheezing Status: Acute (2) Exacerbation of asthma Status: Acute (3) Acute bronchitis Status: Acute (4) Respiratory distress Status: Acute (5) Exogenous obesity Status: Chronic
[2019-03-10 10:59] LABS: BLOOD UREA NITROGEN 24 mg/dl (7-17); CALCIUM 11.3 mg/dL (8.4-10.2); GFR NON-AFRICAN AMERICAN > 60
[2019-03-10 11:15] LABS: BASO % 0.2 % (0.0-2.0); EOS % 0.4 % (0.0-4.0); HEMOGLOBIN 14.6 g/dL (12.0-16.0); LYMPH # 2.1 K/uL (1.0-4.3); MEAN CELL VOLUME 91.8 fl (81.0-99.0); MEAN CORPUSCULAR HEMOGLOBIN 30.5 pg (27.0-31.0); MEAN CORPUSCULAR HGB CONC 33.2 g/dL (33.0-37.0); MEAN PLATELET VOLUME 9.7 fl (7.2-11.7); MONO # 0.9 K/uL (0.0-0.8); NEUT # 7.3 K/uL (1.8-7.0); NEUT % 70.4 % (50.0-75.0); NRBC % 0.1 % (0.0-0.0); RBC 4.79 Mil/uL (3.80-5.20); RED CELL DISTRIBUTION WIDTH 12.6 % (11.5-14.5); WHITE BLOOD COUNT 10.4 K/uL (4.8-10.8)
--- NOTE | 2019-03-10 12:29 | CP.PCM.PCO ---
Assessment & Plan - Assessment and Plan (Free Text) Assessment: pt. to continue Zithromax 500 mg ivpb daily x 5 days d/w , consult for ENT for chronic cough will start diamox 250 mg po daily as per pt. agreeable for tcu tsf cleared for d/c to TCU by , above d/w
--- NOTE | 2019-03-10 19:33 | CP.PCM.PN ---
Subjective - Date & Time of Evaluation Date of Evaluation: 03/10/19 Time of Evaluation: 22:22 - Subjective Subjective: BP good Pulmonary and [employer] notes appreciated Objective - Vital Signs/Intake and Output Vital Signs (last 24 hours): Temp Pulse Resp BP Pulse Ox 98.0 F 96 H 18 148/73 96 03/10/19 16:01 03/10/19 16:01 03/10/19 16:01 03/10/19 16:01 03/10/19 16:01 - Medications Medications: Current Medications Albuterol Sulfate (Albuterol 0.083% Inhal Joleen (2.5 Mg/3 Ml) Ud) 2.5 mg INH RQ4 PRN PRN Reason: Shortness of Breath Amlodipine Besylate (Norvasc) 5 mg PO DAILY [facility] Last Admin: 03/10/19 09:45 Dose: 5 mg Apixaban (Eliquis) 5 mg PO Q12 [facility]; Protocol Last Admin: 03/10/19 09:45 Dose: 5 mg Dextrose (Dextrose 50% Inj) 0 ml IV STAT PRN; Protocol PRN Reason: Hypoglycemia Protocol Dextrose (Glutose 15) 0 gm PO ONCE PRN; Protocol PRN Reason: Hypoglycemia Protocol Glucagon (Glucagen Diagnostic Kit) 0 mg IM STAT PRN; Protocol PRN Reason: Hypoglycemia Protocol Guaifenesin/Dextromethorphan (Mucinex-Dm 600-30 Mg) 1 tab PO BID [facility] Last Admin: 03/10/19 16:21 Dose: 1 tab Hydrochlorothiazide (Microzide) 12.5 mg PO DAILY [facility] Last Admin: 03/10/19 09:44 Dose: 12.5 mg Azithromycin 500 mg/ Sodium (Chloride) 250 mls @ 250 mls/hr IVPB DAILY [facility]; Protocol Last Admin: 03/10/19 09:44 Dose: 250 mls/hr Insulin Human Lispro (Humalog) 0 units SC ACHS [facility]; Protocol Last Admin: 03/10/19 16:22 Dose: 3 units Ipratropium [place] (Atrovent) 0.5 mg IH RQ8 [facility] Last Admin: 03/10/19 16:56 Dose: 0.5 mg Levalbuterol HCl (Xopenex) 1.25 mg INH RQ8 [facility] Last Admin: 03/10/19 16:56 Dose: 1.25 mg Lisinopril (Zestril) 10 mg PO DAILY [facility] Last Admin: 03/08/19 09:24 Dose: 10 mg Metformin HCl (Glucophage) 850 mg PO BID [facility] Last Admin: 03/10/19 16:21 Dose: 850 mg Pantoprazole Sodium (Protonix Ec Tab) 40 mg PO DAILY [facility] Last Admin: 03/10/19 09:45 Dose: 40 mg Pravastatin Sodium (Pravachol) 20 mg PO HS [facility] Last Admin: 03/09/19 21:29 Dose: 20 mg Prednisone (Prednisone Tab) 10 mg PO BID [facility] Last Admin: 03/10/19 16:21 Dose: 10 mg Promethazine HCl/Codeine (Phenergan/Codeine Oral Syrup) 5 ml PO QID [facility] Last Admin: 03/10/19 17:41 Dose: Not Given - Labs Labs: 03/10/19 10:45 03/10/19 10:15 PT 11.2 Seconds (9.8-13.1) 03/04/19 12:45 INR 1.0 03/04/19 12:45 APTT 25.8 Seconds (25.6-37.1) 03/04/19 12:45 - Respiratory Exam Respiratory Exam: NORMAL BREATHING PATTERN - Cardiovascular Exam Cardiovascular Exam: REGULAR RHYTHM - GI/Abdominal Exam GI & Abdominal Exam: Normal Bowel Sounds Assessment and Plan - Assessment and Plan (Free Text) Assessment: COPD acute excerbation Pneumonia? Persistent cough LALITO d/c Steroids Bronchodilators ABX O2 Pulmonary ENT HX CVA Afib on Eliquis HTN LALITO d/c Norvasc Dig started BNP ?? Echo LVH with LV ej fx 65-70% Cardiology Thyroid ?? Endo NIDDM Cont meds MDS Hematology LBP
--- NOTE | 2019-03-10 20:12 | PN ---
DATE: 03/10/2019 ENDOCRINOLOGY FOLLOWUP NOTE LOCATION: In room 408. SUBJECTIVE: This is an 84-year-old female with recent uncontrolled type 2 diabetes, presenting with acute exacerbation of COPD and now currently oral steroids therapy is given for underlying bronchospasm and is also being followed closely now for metabolic management. LABORATORY DATA: Her glycemic levels are fluctuating, but improved and the glucose values have ranged from 108 to 179 mg/dL. Her chemistries showed a BUN of 24, sodium 136, potassium 4.4, chloride 92, CO2 38, glucose 168, and creatinine 0.7. PLAN OF MANAGEMENT: So at this time, we will continue the metformin given as 850 mg b.i.d. with meals as ordered. We will also continue the low-dose correction scale using Humalog insulin as given. We will obtain serial chemistries and supplement accordingly as needed. We will follow. Padmaja Yo MD
[2019-03-10] MEDS: Pravastatin Sodium 20 MG TAB PO SCH (21:14)
[2019-03-11] MEDS: Levalbuterol 1.25 MG/3 ML Inhal Soln UD INH SCH ×2 (00:24→07:22)
[2019-03-11] MEDS: Ipratropium 0.02% Inhal Soln (0.5 mg/2.5 ml) UD IH SCH ×2 (00:25→07:22)
[2019-03-11] MEDS: Insulin Lispro (humaLOG) 100 Units/ml Inj SC SCH ×2 (06:54→11:30)
[2019-03-11] MEDS: Azithromycin 500 MG in Sodium Chloride 0.9% 250 ML IVPB SCH (08:42)
[2019-03-11] MEDS: Promethazine/Cod 6.25mg-10mg/5ml Syr UD PO SCH (08:43)
[2019-03-11] MEDS: guaiFENesin-DM 600-30 mg ER Tab PO SCH (08:44)
[2019-03-11] MEDS: Pantoprazole 40 mg EC Tab PO SCH (08:44)
[2019-03-11 08:51] VITALS: RESP 18
--- NOTE | 2019-03-11 09:12 | CP.PCM.PN ---
Subjective - Date & Time of Evaluation Date of Evaluation: 03/11/19 Time of Evaluation: 09:12 Objective - Vital Signs/Intake and Output Vital Signs (last 24 hours): Temp Pulse Resp BP Pulse Ox 98.0 F 82 18 146/66 95 03/11/19 08:00 03/11/19 08:00 03/11/19 08:00 03/11/19 08:00 03/11/19 08:00 - Medications Medications: Current Medications Acetazolamide (Diamox 250 Mg Tab) 250 mg PO BID [facility] Albuterol Sulfate (Albuterol 0.083% Inhal Joleen (2.5 Mg/3 Ml) Ud) 2.5 mg INH RQ4 PRN PRN Reason: Shortness of Breath Amlodipine Besylate (Norvasc) 5 mg PO DAILY [facility] Last Admin: 03/11/19 08:44 Dose: 5 mg Apixaban (Eliquis) 5 mg PO Q12 [facility]; Protocol Last Admin: 03/11/19 08:44 Dose: 5 mg Benzonatate (Tessalon Perles) 200 mg PO Q8 PRN PRN Reason: Cough Last Admin: 03/10/19 21:13 Dose: 200 mg Dextrose (Dextrose 50% Inj) 0 ml IV STAT PRN; Protocol PRN Reason: Hypoglycemia Protocol Dextrose (Glutose 15) 0 gm PO ONCE PRN; Protocol PRN Reason: Hypoglycemia Protocol Glucagon (Glucagen Diagnostic Kit) 0 mg IM STAT PRN; Protocol PRN Reason: Hypoglycemia Protocol Guaifenesin/Dextromethorphan (Mucinex-Dm 600-30 Mg) 1 tab PO BID [facility] Last Admin: 03/11/19 08:44 Dose: 1 tab Hydrochlorothiazide (Microzide) 12.5 mg PO DAILY [facility] Last Admin: 03/11/19 08:44 Dose: 12.5 mg Azithromycin 500 mg/ Sodium (Chloride) 250 mls @ 250 mls/hr IVPB DAILY [facility]; Protocol Last Admin: 03/11/19 08:42 Dose: 250 mls/hr Insulin Human Lispro (Humalog) 0 units SC ACHS [facility]; Protocol Last Admin: 03/11/19 06:54 Dose: Not Given Ipratropium [place] (Atrovent) 0.5 mg IH RQ8 [facility] Last Admin: 03/11/19 07:22 Dose: 0.5 mg Levalbuterol HCl (Xopenex) 1.25 mg INH RQ8 [facility] Last Admin: 03/11/19 07:22 Dose: 1.25 mg Lisinopril (Zestril) 10 mg PO DAILY [facility] Last Admin: 03/08/19 09:24 Dose: 10 mg Metformin HCl (Glucophage) 850 mg PO BID [facility] Last Admin: 03/11/19 08:44 Dose: 850 mg Pantoprazole Sodium (Protonix Ec Tab) 40 mg PO DAILY [facility] Last Admin: 03/11/19 08:44 Dose: 40 mg Pravastatin Sodium (Pravachol) 20 mg PO HS [facility] Last Admin: 03/10/19 21:14 Dose: 20 mg Prednisone (Prednisone Tab) 10 mg PO BID [facility] Last Admin: 03/11/19 08:44 Dose: 10 mg Promethazine HCl/Codeine (Phenergan/Codeine Oral Syrup) 5 ml PO QID [facility] Last Admin: 03/11/19 08:43 Dose: Not Given - Labs Labs: 03/10/19 10:45 03/10/19 10:15 PT 11.2 Seconds (9.8-13.1) 03/04/19 12:45 INR 1.0 03/04/19 12:45 APTT 25.8 Seconds (25.6-37.1) 03/04/19 12:45 Assessment and Plan (1) Wheezing Status: Acute (2) Exacerbation of asthma Status: Acute (3) Acute bronchitis Status: Acute (4) Respiratory distress Status: Acute (5) Exogenous obesity Status: Chronic
--- NOTE | 2019-03-11 11:11 | CP.PCM.PN ---
<Tatiana Hernandez - Last Filed: 03/11/19 11:13> Subjective - Date & Time of Evaluation Date of Evaluation: 03/11/19 Time of Evaluation: 08:30 - Subjective Subjective: Patient seen and examined this morning with Dr. Wen/Pulmonary Patient is still coughing but significant improvement as per patient VS reviewed this morning No new blood work Refused BIPAP, c/w NC Patient is cleared for pulmonary point of view for SANAZ PE: Trace dependant edema, no cyanosis or calf tenderness. Pharynx is pink and moist w/o exudate. Neck is supple and trachea midline. No dullness on chest percussion. Decreased Breath sounds bilaterally. Late expiratory, scattered wheezing present in both LLs/improved Few scattered dry rales in lower lobes. No bronchial breath sounds or egophony. Heart sounds are distant Will continue reduced steroid PO daily C/w cough suppressant as ordered C/w Azithro C/w Xopenex with ipratropium Q8H AirDuo inhaler on hold for tachycardia BMP with high CO2, START acetazolamide today STOP Lisinopril for now (Cough) and Increase Norvasc to 10mg If cough not resolved, outpatient ENT f/u Objective - Vital Signs/Intake and Output Vital Signs (last 24 hours): Temp Pulse Resp BP Pulse Ox 98.0 F 82 18 146/66 95 03/11/19 08:00 03/11/19 08:00 03/11/19 08:00 03/11/19 08:00 03/11/19 08:00 - Medications Medications: Current Medications Acetazolamide (Diamox 250 Mg Tab) 250 mg PO BID [facility] Last Admin: 03/11/19 10:36 Dose: 250 mg Albuterol Sulfate (Albuterol 0.083% Inhal Joleen (2.5 Mg/3 Ml) Ud) 2.5 mg INH RQ4 PRN PRN Reason: Shortness of Breath Amlodipine Besylate (Norvasc) 10 mg PO DAILY [facility] Apixaban (Eliquis) 5 mg PO Q12 [facility]; Protocol Last Admin: 03/11/19 08:44 Dose: 5 mg Benzonatate (Tessalon Perles) 200 mg PO Q8 PRN PRN Reason: Cough Last Admin: 03/10/19 21:13 Dose: 200 mg Dextrose (Dextrose 50% Inj) 0 ml IV STAT PRN; Protocol PRN Reason: Hypoglycemia Protocol Dextrose (Glutose 15) 0 gm PO ONCE PRN; Protocol PRN Reason: Hypoglycemia Protocol Glucagon (Glucagen Diagnostic Kit) 0 mg IM STAT PRN; Protocol PRN Reason: Hypoglycemia Protocol Guaifenesin/Dextromethorphan (Mucinex-Dm 600-30 Mg) 1 tab PO BID [facility] Last Admin: 03/11/19 08:44 Dose: 1 tab Hydrochlorothiazide (Microzide) 12.5 mg PO DAILY [facility] Last Admin: 03/11/19 08:44 Dose: 12.5 mg Azithromycin 500 mg/ Sodium (Chloride) 250 mls @ 250 mls/hr IVPB DAILY [facility]; Protocol Last Admin: 03/11/19 08:42 Dose: 250 mls/hr Insulin Human Lispro (Humalog) 0 units SC ACHS [facility]; Protocol Last Admin: 03/11/19 06:54 Dose: Not Given Ipratropium [place] (Atrovent) 0.5 mg IH RQ8 [facility] Last Admin: 03/11/19 07:22 Dose: 0.5 mg Levalbuterol HCl (Xopenex) 1.25 mg INH RQ8 [facility] Last Admin: 03/11/19 07:22 Dose: 1.25 mg Lisinopril (Zestril) 10 mg PO DAILY [facility] Last Admin: 03/08/19 09:24 Dose: 10 mg Metformin HCl (Glucophage) 850 mg PO BID [facility] Last Admin: 03/11/19 08:44 Dose: 850 mg Pantoprazole Sodium (Protonix Ec Tab) 40 mg PO DAILY [facility] Last Admin: 03/11/19 08:44 Dose: 40 mg Pravastatin Sodium (Pravachol) 20 mg PO HS [facility] Last Admin: 03/10/19 21:14 Dose: 20 mg Prednisone (Prednisone Tab) 10 mg PO BID [facility] Last Admin: 03/11/19 08:44 Dose: 10 mg Promethazine HCl/Codeine (Phenergan/Codeine Oral Syrup) 5 ml PO QID [facility] Last Admin: 03/11/19 08:43 Dose: Not Given - Labs Labs: 03/10/19 10:45 03/10/19 10:15 PT 11.2 Seconds (9.8-13.1) 03/04/19 12:45 INR 1.0 03/04/19 12:45 APTT 25.8 Seconds (25.6-37.1) 03/04/19 12:45 Assessment and Plan (1) COPD exacerbation Assessment & Plan: Improved Will continue reduced steroid PO daily C/w cough suppressant as ordered C/w Azithro C/w Xopenex with ipratropium Q8H AirDuo inhaler on hold for tachycardia BMP with high CO2, START acetazolamide today STOP Lisinopril for now (Cough) and Increase Norvasc to 10mg Status: Acute (2) Exacerbation of asthma Assessment & Plan: Patient is cleared for pulmonary point of view for SANAZ Status: Acute (3) Acute bronchitis Assessment & Plan: Improved Status: Acute (4) Wheezing Status: Acute (5) Exogenous obesity Status: Chronic (6) Chronic cough Assessment & Plan: Improved If cough not resolved, outpatient ENT f/u Status: Chronic <Willy Wen - Last Filed: 03/12/19 08:17> Subjective - Subjective Subjective: Seen and examined together with the resident on rounds in telemetry. Interim events, labs and physical findings were reviewed. Current diagnosis and plan of care were discussed and agreed upon. The entry in the EMR by the resident is an accurate description of this activity. Objective - Vital Signs/Intake and Output Vital Signs (last 24 hours): Temp Pulse Resp BP Pulse Ox 98.1 F 84 18 127/68 97 03/11/19 12:32 03/11/19 12:32 03/11/19 12:32 03/11/19 12:32 03/11/19 12:32 - Labs Labs: 03/10/19 10:45 03/10/19 10:15 PT 11.2 Seconds (9.8-13.1) 03/04/19 12:45 INR 1.0 03/04/19 12:45 APTT 25.8 Seconds (25.6-37.1) 03/04/19 12:45 Assessment and Plan (1) Wheezing Status: Acute (2) Exacerbation of asthma Status: Acute (3) Acute bronchitis Status: Acute (4) Respiratory distress Status: Acute (5) Exogenous obesity Status: Chronic
[2019-03-11 12:33] VITALS: BP 127/68; PULSE 84; TEMP 98.1; O2SAT 97
== END 2019-03-11 13:20 | DRG 191 ==
LOC: H.ER 10:44 → H.ERHOLD 14:33 → H.TEL 16:42
PROVIDERS: ADMIT Family Medicine Geriatric Medicine; ATTEND Family Medicine Geriatric Medicine
DX: J44.1 Chronic obstructive pulmonary disease with (acute) exacerbation (principal); J45.901 Unspecified asthma with (acute) exacerbation; I48.1 Persistent atrial fibrillation; Z68.41 Body mass index [BMI] 40.0-44.9, adult; E11.65 Type 2 diabetes mellitus with hyperglycemia; J44.0 Chronic obstructive pulmonary disease with (acute) lower respiratory infection; J20.9 Acute bronchitis, unspecified; I11.0 Hypertensive heart disease with heart failure; I50.9 Heart failure, unspecified; I48.2 Chronic atrial fibrillation; D46.9 Myelodysplastic syndrome, unspecified; E66.09 Other obesity due to excess calories; E78.00 Pure hypercholesterolemia, unspecified; I49.1 Atrial premature depolarization; I87.8 Other specified disorders of veins; R06.03 Acute respiratory distress; M17.0 Bilateral primary osteoarthritis of knee; Z86.73 Personal history of transient ischemic attack (TIA), and cerebral infarction without residual deficits; Z79.01 Long term (current) use of anticoagulants; Z79.84 Long term (current) use of oral hypoglycemic drugs; Z88.6 Allergy status to analgesic agent

== ENCOUNTER 2019-03-11 13:33 | Inpatient (IN) | payer MEDICARE ==
[~2019-03-11 13:33] MED LIST: Azithromycin 500 MG in Sodium Chloride 0.9% 250 ML IVPB SCH
[2019-03-11 13:48] VITALS: BMI 42.7
[2019-03-11] MEDS ORDERED: Albuterol 0.083% Inhal Sol (2.5 mg/3 mL) UD INH PRN (14:04)
[2019-03-11] MEDS ORDERED: Promethazine/Cod 6.25mg-10mg/5ml Syr UD PO PRN (14:15)
[2019-03-11] MEDS ORDERED: Levalbuterol 1.25 MG/3 ML Inhal Soln UD INH PRN (14:24)
[2019-03-11] MEDS: Ipratropium 0.02% Inhal Soln (0.5 mg/2.5 ml) UD IH SCH ×2 (15:40→23:45)
[2019-03-11] MEDS: guaiFENesin-DM 600-30 mg ER Tab PO SCH (16:37)
[2019-03-11] MEDS: Insulin Lispro (humaLOG) 100 Units/ml Inj SC SCH ×2 (16:38→21:29)
--- NOTE | 2019-03-11 16:49 | CP.PCM.HP ---
History of Present Illness - History of Present Illness History of Present Illness: 84 yo admitted for deconditioning Present on Admission - Present on Admission Any Indicators Present on Admission: No Past Patient History - Infectious Disease Hx of Infectious Diseases: None - Past Medical History & Family History Past Medical History?: Yes - Past Social History Smoking Status: Never Smoked - CARDIAC Hx Hypertension: Yes - PULMONARY Hx Asthma: Yes Hx Bronchitis: Yes - NEUROLOGICAL Hx Neurological Disorder: No - HEENT Hx HEENT Problems: No - RENAL Hx Chronic Kidney Disease: No - ENDOCRINE/METABOLIC Hx Diabetes Mellitus Type 2: Yes - HEMATOLOGICAL/ONCOLOGICAL Hx Blood Disorders: No - INTEGUMENTARY Other/Comment: Zoster - MUSCULOSKELETAL/RHEUMATOLOGICAL Hx Arthritis: Yes Hx Falls: No Hx Spinal Stenosis: Yes - GASTROINTESTINAL Hx Gastrointestinal Disorders: No - GENITOURINARY/GYNECOLOGICAL Hx Genitourinary Disorders: No - PSYCHIATRIC Hx Psychophysiologic Disorder: No Hx Substance Use: No - SURGICAL HISTORY Hx Breast Biopsy: Yes (Right breast as per daughter.) Hx Orthopedic Surgery: Yes (lumbar surgery-1997) Other/Comment: RIGHT HAND SURGERY-2006;BACK SURGERY-1997;RIGHT BREAST LUMP- 1996;RIGHT FOOT SURGERY 1993 - ANESTHESIA Hx Anesthesia: Yes Hx Anesthesia Reactions: No Hx Malignant Hyperthermia: No Meds Allergies/Adverse Reactions: Allergies Allergy/AdvReac Type Severity Reaction Status Date / Time aspirin Allergy VOMITING Verified 03/11/19 13:48 olive oil Allergy SWELLING Verified 03/11/19 13:48 Physical Exam - Respiratory Exam Respiratory Exam: NORMAL BREATHING PATTERN - Cardiovascular Exam Cardiovascular Exam: REGULAR RHYTHM - GI/Abdominal Exam GI & Abdominal Exam: Normal Bowel Sounds Results - Vital Signs Recent Vital Signs: Last Vital Signs Temp 97.3 F L 03/11/19 16:23 Pulse 86 03/11/19 16:23 Resp 20 03/11/19 16:23 BP 159/73 H 03/11/19 16:23 Pulse Ox 94 L 03/11/19 16:23 - Labs Labs: Laboratory Results - last 24 hr 03/11/19 16:17 POC Glucose (mg/dL) 185 H Assessment & Plan - Assessment and Plan (Free Text) Assessment: Deconditioning TCU COPD acute excerbation Pneumonia? Persistent cough LALITO d/c Steroids Bronchodilators ABX O2 Pulmonary ENT HX CVA Afib on Eliquis HTN LALITO d/c Norvasc Dig started BNP ?? Echo LVH with LV ej fx 65-70% Cardiology Thyroid ?? Endo NIDDM Cont meds MDS Hematology LBP - Date & Time Date: 03/11/19
--- NOTE | 2019-03-11 17:37 | CP.PCM.CON ---
History of Present Illness - History of Present Illness History of Present Illness: This is a 84 yrs old femalewhom I hd first seen in 2011. At that time her Hgb was high but not enough to need a therapeutic phlebotomy.. In 2016 sheame with a low platelet count and also some anemia. At this time she had bone marrow done to r/o myelofibrosis. She seemed to have slightly hypercellular marrow and increased monocytes with a slight dysplasia of the white cells. 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 This time she was admitted with exacerbation of the COPD and her platelets were 115TK. She is better now and and the platelets have gone up to 238. The WBC and the HGB were perfectly normal. there is no monocytosis. It is hard to believe that the MDS resolved by itself, but that seems to be the case. Will have to monitor the CBC and look for signs of pancytopenia. Past h/o COPD with several admission for exacerbations. Past Patient History - Infectious Disease Hx of Infectious Diseases: None - Past Medical History & Family History Past Medical History?: Yes - Past Social History Smoking Status: Never Smoked - CARDIAC Hx Hypertension: Yes - PULMONARY Hx Asthma: Yes Hx Bronchitis: Yes - NEUROLOGICAL Hx Neurological Disorder: No - HEENT Hx HEENT Problems: No - RENAL Hx Chronic Kidney Disease: No - ENDOCRINE/METABOLIC Hx Diabetes Mellitus Type 2: Yes - HEMATOLOGICAL/ONCOLOGICAL Hx Blood Disorders: No - INTEGUMENTARY Other/Comment: Zoster - MUSCULOSKELETAL/RHEUMATOLOGICAL Hx Arthritis: Yes Hx Falls: No Hx Spinal Stenosis: Yes - GASTROINTESTINAL Hx Gastrointestinal Disorders: No - GENITOURINARY/GYNECOLOGICAL Hx Genitourinary Disorders: No - PSYCHIATRIC Hx Psychophysiologic Disorder: No Hx Substance Use: No - SURGICAL HISTORY Hx Breast Biopsy: Yes (Right breast as per daughter.) Hx Orthopedic Surgery: Yes (lumbar surgery-1997) Other/Comment: RIGHT HAND SURGERY-2006;BACK SURGERY-1997;RIGHT BREAST LUMP- 1996;RIGHT FOOT SURGERY 1993 - ANESTHESIA Hx Anesthesia: Yes Hx Anesthesia Reactions: No Hx Malignant Hyperthermia: No Meds Allergies/Adverse Reactions: Allergies Allergy/AdvReac Type Severity Reaction Status Date / Time aspirin Allergy VOMITING Verified 03/11/19 13:48 olive oil Allergy SWELLING Verified 03/11/19 13:48 - Medications Medications: Current Medications Acetazolamide (Diamox 250 Mg Tab) 250 mg PO BID [facility] Last Admin: 03/11/19 16:37 Dose: 250 mg Albuterol Sulfate (Albuterol 0.083% Inhal Joleen (2.5 Mg/3 Ml) Ud) 2.5 mg INH RQ4 PRN PRN Reason: Shortness of Breath Amlodipine Besylate (Norvasc) 10 mg PO DAILY [facility] Apixaban (Eliquis) 5 mg PO BID [facility]; Protocol Last Admin: 03/11/19 16:37 Dose: 5 mg Benzonatate (Tessalon Perles) 200 mg PO Q8 PRN PRN Reason: Cough Guaifenesin/Dextromethorphan (Mucinex-Dm 600-30 Mg) 1 tab PO BID [facility] Last Admin: 03/11/19 16:37 Dose: 1 tab Hydrochlorothiazide (Microzide) 12.5 mg PO DAILY [facility] Azithromycin 500 mg/ Sodium (Chloride) 250 mls @ 250 mls/hr IVPB DAILY@0500 [facility]; Protocol Insulin Human Lispro (Humalog) 0 units SC ACHS [facility]; Protocol Last Admin: 03/11/19 16:38 Dose: 1 unit Ipratropium [place] (Atrovent) 0.5 mg IH RQ8 [facility] Last Admin: 03/11/19 15:40 Dose: 0.5 mg Levalbuterol HCl (Xopenex) 1.25 mg INH RQ8 PRN PRN Reason: Shortness of Breath Lisinopril (Zestril) 10 mg PO DAILY [facility] Metformin HCl (Glucophage) 850 mg PO BIDWM [facility] Last Admin: 03/11/19 16:37 Dose: 850 mg Pantoprazole Sodium (Protonix Ec Tab) 40 mg PO DAILY [facility] Pravastatin Sodium (Pravachol) 20 mg PO HS [facility] Prednisone (Prednisone Tab) 10 mg PO BID [facility] Last Admin: 03/11/19 16:38 Dose: 10 mg Promethazine HCl/Codeine (Phenergan/Codeine Oral Syrup) 5 ml PO Q6 PRN PRN Reason: Cough Physical Exam - Additional Findings Additional findings: Physical exam; Pt is obese in slight respiratory distress when her oxygen is off. neck; supple, no adenopathy Cheat; Air entry poor with no congestion in both bases. Occ rales Heart; RSR, no murmur Abd; Soft, no mass, no h/s megay Results - Vital Signs Recent Vital Signs: Last Vital Signs Temp 97.3 F L 03/11/19 16:23 Pulse 86 03/11/19 16:23 Resp 20 03/11/19 16:23 BP 159/73 H 03/11/19 16:23 Pulse Ox 94 L 03/11/19 16:23 - Labs Labs: Laboratory Results - last 24 hr 03/11/19 16:17 POC Glucose (mg/dL) 185 H Assessment & Plan - Assessment and Plan (Free Text) Assessment: Impression; Past h/o MDS. as of now her blood counts seem fine. Plan: Plan; Would monitor for any signs of pancytopenia
[2019-03-11] MEDS: Pravastatin Sodium 20 MG TAB PO SCH (21:29)
--- NOTE | 2019-03-11 22:54 | PN ---
DATE: 03/11/2019 ENDOCRINOLOGY FOLLOWUP NOTE LOCATION: Room 712. SUBJECTIVE: This is an 84-year-old female with recent uncontrolled type 2 diabetes, presenting here with acute exacerbation of COPD, currently switched over from IV to oral steroid therapy and is also being followed closely for metabolic management because of recent hyperglycemic accelerations as noted thereof. Her glycemic levels are fluctuating, but improved and the last glucose value was 185 mg/dL. LABORATORY DATA: Her chemistries showed a BUN of 24, sodium 136, potassium 4.4, chloride 92, CO2 of 38, glucose 185 and creatinine 0.7. Her hemoglobin A1c was 6.9% as noted, which is near optimal in terms of her outpatient metabolic control. ASSESSMENT: This is an 84-year-old female with uncontrolled type 2 diabetes with recent and transient hyperglycemic accelerations related to the intercurrent intravenous steroid therapy, which has now been switched over to oral steroids with again transient increased insulin resistance and further impaired glucose tolerance thereof. PLAN OF MANAGEMENT: We will resume and continue her metformin given as 850 mg b.i.d. with meals, and we will titrate incrementally as indicated to optimize metabolic control. We will continue the low-dose correction scale using Humalog insulin as ordered. We will observe her glycemic fluctuations overnight and determine to add another oral hypoglycemic drug therapy as indicated to optimize her metabolic control. We will obtain serial chemistries accordingly. Padmaja Yo MD
[2019-03-12] MEDS ORDERED: Azithromycin 500 MG in Sodium Chloride 0.9% 250 ML IVPB SCH (05:00)
[2019-03-12 06:47] LABS: HEMOGLOBIN 14.4 g/dL (12.0-16.0); MEAN CELL VOLUME 91.2 fl (81.0-99.0); MEAN CORPUSCULAR HEMOGLOBIN 30.6 pg (27.0-31.0); MEAN CORPUSCULAR HGB CONC 33.6 g/dL (33.0-37.0); RBC 4.71 Mil/uL (3.80-5.20); RED CELL DISTRIBUTION WIDTH 12.5 % (11.5-14.5); WHITE BLOOD COUNT 11.7 K/uL (4.8-10.8)
[2019-03-12] MEDS: Insulin Lispro (humaLOG) 100 Units/ml Inj SC SCH ×4 (06:50→21:34)
[2019-03-12 07:07] LABS: ALB/GLOB RATIO 1.6 (1.0-2.1); ALBUMIN 3.6 g/dL (3.5-5.0); ALT/SGPT 30 U/L (9-52); AST/SGOT 17 U/L (14-36); BLOOD UREA NITROGEN 27 mg/dl (7-17); CALCIUM 12.1 mg/dL (8.4-10.2); GFR NON-AFRICAN AMERICAN 60
[2019-03-12] MEDS: Ipratropium 0.02% Inhal Soln (0.5 mg/2.5 ml) UD IH SCH ×3 (07:23→23:59)
[2019-03-12] MEDS: guaiFENesin-DM 600-30 mg ER Tab PO SCH ×2 (08:30→16:41)
[2019-03-12] MEDS: Pantoprazole 40 mg EC Tab PO SCH (08:30)
[2019-03-12] MEDS: Azithromycin 500 MG in Sodium Chloride 0.9% 250 ML IVPB SCH (08:33)
--- NOTE | 2019-03-12 10:45 | CP.PCM.PN ---
Subjective - Date & Time of Evaluation Date of Evaluation: 03/12/19 Time of Evaluation: 22:22 - Subjective Subjective: Above noted Objective - Vital Signs/Intake and Output Vital Signs (last 24 hours): Temp Pulse Resp BP Pulse Ox 97.2 F L 95 H 18 143/78 95 03/12/19 09:51 03/12/19 09:51 03/12/19 09:51 03/12/19 09:51 03/12/19 09:51 - Medications Medications: Current Medications Acetazolamide (Diamox 250 Mg Tab) 250 mg PO BID [facility] Last Admin: 03/12/19 08:30 Dose: 250 mg Albuterol Sulfate (Albuterol 0.083% Inhal Joleen (2.5 Mg/3 Ml) Ud) 2.5 mg INH RQ4 PRN PRN Reason: Shortness of Breath Amlodipine Besylate (Norvasc) 10 mg PO DAILY [facility] Last Admin: 03/12/19 08:31 Dose: 10 mg Apixaban (Eliquis) 5 mg PO BID [facility]; Protocol Last Admin: 03/12/19 08:32 Dose: 5 mg Benzonatate (Tessalon Perles) 200 mg PO Q8 PRN PRN Reason: Cough Guaifenesin/Dextromethorphan (Mucinex-Dm 600-30 Mg) 1 tab PO BID [facility] Last Admin: 03/12/19 08:30 Dose: 1 tab Hydrochlorothiazide (Microzide) 12.5 mg PO DAILY [facility] Last Admin: 03/12/19 08:31 Dose: 12.5 mg Azithromycin 500 mg/ Sodium (Chloride) 250 mls @ 250 mls/hr IVPB DAILY [facility]; Pr otocol Last Admin: 03/12/19 08:33 Dose: 250 mls/hr Insulin Human Lispro (Humalog) 0 units SC ACHS [facility]; Protocol Last Admin: 03/12/19 06:50 Dose: Not Given Ipratropium [place] (Atrovent) 0.5 mg IH RQ8 [facility] Last Admin: 03/12/19 07:23 Dose: 0.5 mg Levalbuterol HCl (Xopenex) 1.25 mg INH RQ8 PRN PRN Reason: Shortness of Breath Last Admin: 03/12/19 07:23 Dose: 1.25 mg Lisinopril (Zestril) 10 mg PO DAILY [facility] Metformin HCl (Glucophage) 850 mg PO BIDWM [facility] Last Admin: 03/12/19 08:31 Dose: 850 mg Pantoprazole Sodium (Protonix Ec Tab) 40 mg PO DAILY [facility] Last Admin: 03/12/19 08:30 Dose: 40 mg Pravastatin Sodium (Pravachol) 20 mg PO HS [facility] Last Admin: 03/11/19 21:29 Dose: 20 mg Prednisone (Prednisone Tab) 10 mg PO BID [facility] Last Admin: 03/12/19 08:31 Dose: 10 mg Promethazine HCl/Codeine (Phenergan/Codeine Oral Syrup) 5 ml PO Q6 PRN PRN Reason: Cough - Labs Labs: 03/12/19 06:25 03/12/19 06:25 - Respiratory Exam Respiratory Exam: NORMAL BREATHING PATTERN - Cardiovascular Exam Cardiovascular Exam: REGULAR RHYTHM - GI/Abdominal Exam GI & Abdominal Exam: Normal Bowel Sounds Assessment and Plan - Assessment and Plan (Free Text) Assessment: Deconditioning TCU COPD acute excerbation Pneumonia? Persistent cough LALITO d/c Steroids Bronchodilators ABX O2 Pulmonary ENT HX CVA Afib on Eliquis HTN LALITO d/c Norvasc Dig started BNP ?? Echo LVH with LV ej fx 65-70% Cardiology Thyroid ?? Endo NIDDM Cont meds MDS Hematology LBP
--- NOTE | 2019-03-12 11:39 | CP.PCM.CON ---
History of Present Illness - History of Present Illness History of Present Illness: Seen on follow up consultation from acute medicine. She was admitted with intractable cough and SOB with wheezing. This was thought to be a result of Asthma/COPD overlap with acute exacerbation. Her ACEI was discontinued because of possible contribution to her cough and she was treated with aerosol therapy, cough suppression and empiric antibiotic. She did have tachycardia thought to be secondary to beta -adrenergic stimulation which had been a problem on a previous admission as well. Her cough did gradually improve, but she developed CO2 retention and was started on acetazolamide. She was not able to tolerate BiPAP NPPV which was the reason for using acetazolamide. The CO2 retention was possibly multifactorial considering her obesity, underlying diagnosis, narcotic cough suppression and potential excessive O2 supplementation. She did improve and was discharged to TCU for physical therapy. Past Patient History - Infectious Disease Hx of Infectious Diseases: None - Past Medical History & Family History Past Medical History?: Yes - Past Social History Smoking Status: Never Smoked Chewing Tobacco Use: No Cigar Use: No Alcohol: None Drugs: Denies - CARDIAC Hx Cardia Arrhythmia: Yes Hx Hypertension: Yes - PULMONARY Hx Asthma: Yes Hx Bronchitis: Yes Hx Chronic Obstructive Pulmonary Disease (COPD): Yes - NEUROLOGICAL Hx Neurological Disorder: No - HEENT Hx HEENT Problems: No - RENAL Hx Chronic Kidney Disease: No - ENDOCRINE/METABOLIC Hx Diabetes Mellitus Type 2: Yes - HEMATOLOGICAL/ONCOLOGICAL Hx Blood Disorders: No - INTEGUMENTARY Other/Comment: Zoster - MUSCULOSKELETAL/RHEUMATOLOGICAL Hx Arthritis: Yes Hx Falls: No Hx Spinal Stenosis: Yes - GASTROINTESTINAL Hx Gastrointestinal Disorders: No - GENITOURINARY/GYNECOLOGICAL Hx Genitourinary Disorders: No - PSYCHIATRIC Hx Psychophysiologic Disorder: No Hx Substance Use: No - SURGICAL HISTORY Hx Breast Biopsy: Yes (Right breast as per daughter.) Hx Orthopedic Surgery: Yes (lumbar surgery-1997) Other/Comment: RIGHT HAND SURGERY-2006;BACK SURGERY-1997;RIGHT BREAST LUMP- 1996;RIGHT FOOT SURGERY 1993 - ANESTHESIA Hx Anesthesia: Yes Hx Anesthesia Reactions: No Hx Malignant Hyperthermia: No Meds Allergies/Adverse Reactions: Allergies Allergy/AdvReac Type Severity Reaction Status Date / Time aspirin Allergy VOMITING Verified 03/11/19 13:48 olive oil Allergy SWELLING Verified 03/11/19 13:48 - Medications Medications: Current Medications Acetazolamide (Diamox 250 Mg Tab) 250 mg PO BID [facility] Last Admin: 03/12/19 08:30 Dose: 250 mg Albuterol Sulfate (Albuterol 0.083% Inhal Joleen (2.5 Mg/3 Ml) Ud) 2.5 mg INH RQ4 PRN PRN Reason: Shortness of Breath Amlodipine Besylate (Norvasc) 10 mg PO DAILY [facility] Last Admin: 03/12/19 08:31 Dose: 10 mg Apixaban (Eliquis) 5 mg PO BID [facility]; Protocol Last Admin: 03/12/19 08:32 Dose: 5 mg Benzonatate (Tessalon Perles) 200 mg PO Q8 PRN PRN Reason: Cough Guaifenesin/Dextromethorphan (Mucinex-Dm 600-30 Mg) 1 tab PO BID [facility] Last Admin: 03/12/19 08:30 Dose: 1 tab Hydrochlorothiazide (Microzide) 12.5 mg PO DAILY [facility] Last Admin: 03/12/19 08:31 Dose: 12.5 mg Azithromycin 500 mg/ Sodium (Chloride) 250 mls @ 250 mls/hr IVPB DAILY [facility]; Protocol Last Admin: 03/12/19 08:33 Dose: 250 mls/hr Insulin Human Lispro (Humalog) 0 units SC ACHS [facility]; Protocol Last Admin: 03/12/19 06:50 Dose: Not Given Ipratropium [place] (Atrovent) 0.5 mg IH RQ8 [facility] Last Admin: 03/12/19 07:23 Dose: 0.5 mg Levalbuterol HCl (Xopenex) 1.25 mg INH RQ8 PRN PRN Reason: Shortness of Breath Last Admin: 03/12/19 07:23 Dose: 1.25 mg Lisinopril (Zestril) 10 mg PO DAILY [facility] Metformin HCl (Glucophage) 850 mg PO BIDWM [facility] Last Admin: 03/12/19 08:31 Dose: 850 mg Pantoprazole Sodium (Protonix Ec Tab) 40 mg PO DAILY [facility] Last Admin: 03/12/19 08:30 Dose: 40 mg Pravastatin Sodium (Pravachol) 20 mg PO HS [facility] Last Admin: 03/11/19 21:29 Dose: 20 mg Prednisone (Prednisone Tab) 10 mg PO BID [facility] Last Admin: 03/12/19 08:31 Dose: 10 mg Promethazine HCl/Codeine (Phenergan/Codeine Oral Syrup) 5 ml PO Q6 PRN PRN Reason: Cough Physical Exam - Additional Findings Additional findings: Awake, alert, obese female in no acute distress. Pharynx is pink and moist w/o exudate. Neck is supple and trachea midline. No palpable lymphadenopathy. No dullness on chest percussion, increased AP diameter of thorax. Breath sounds are diminished equally in both lungs. Scattered dry rales in both lower lobes. No audible wheezes or bronchial breath sounds. Heart sounds are distant, tachycardic, regular. No abdominal tenderness, + bowel sounds. No dependant edema, no cyanosis. Results - Vital Signs Recent Vital Signs: Last Vital Signs Temp 97.2 F L 03/12/19 09:51 Pulse 95 H 03/12/19 09:51 Resp 18 03/12/19 09:51 BP 143/78 03/12/19 09:51 Pulse Ox 95 03/12/19 09:51 - Labs Result Diagrams: 03/14/19 05:10 03/14/19 05:10 Labs: Laboratory Results - last 24 hr 03/11/19 03/11/19 03/12/19 16:17 21:22 05:40 WBC RBC Hgb Hct MCV MCH MCHC RDW Plt Count Sodium Potassium Chloride Carbon Dioxide Anion Gap BUN Creatinine Est GFR ( Amer) Est GFR (Non-Af Amer) POC Glucose (mg/dL) 185 H 139 H 145 H Random Glucose Calcium Total Bilirubin AST ALT Alkaline Phosphatase Total Protein Albumin Globulin Albumin/Globulin Ratio 03/12/19 03/12/19 06:25 06:25 WBC 11.7 H RBC 4.71 Hgb 14.4 Hct 43.0 MCV 91.2 MCH 30.6 MCHC 33.6 RDW 12.5 Plt Count 256 Sodium 133 Potassium 4.4 Chloride 93 L Carbon Dioxide 35 H Anion Gap 9 L BUN 27 H Creatinine 0.9 Est GFR ( Amer) > 60 Est GFR (Non-Af Amer) 60 POC Glucose (mg/dL) Random Glucose 130 H Calcium 12.1 H Total Bilirubin 0.5 AST 17 ALT 30 Alkaline Phosphatase 45 Total Protein 5.9 L Albumin 3.6 Globulin 2.3 Albumin/Globulin Ratio 1.6 Assessment & Plan (1) Chronic cough Status: Chronic Priority: Medium (2) Exogenous obesity Status: Chronic Priority: High - Assessment and Plan (Free Text) Plan: Continue current medical and aerosol regimen. Monitor for CO2 retention. Non-narcotic cough suppression prn. Overnight SpO2 recording and possible sleep study. - Date & Time Date: 03/12/19 Time: 11:39
--- NOTE | 2019-03-12 17:02 | PN ---
DATE: 03/12/2019 ENDOCRINOLOGY FOLLOWUP NOTE LOCATION: Room 712. SUBJECTIVE: This is an 84-year-old female with recent admission for acute exacerbation of COPD, started on IV steroid therapy and currently switched over to oral steroids with improved clinical and hemodynamic monitoring as noted. Her glycemic levels were fluctuating but have improved accordingly with the initiation of oral hypoglycemic therapy and low-dose insulin coverage scale as given. Her glucose levels overnight have ranged from 138-184 mg/dL. It was 139 at bedtime last night. LABORATORY DATA: Her chemistry showed a BUN of 27, sodium 133, potassium 4.4, chloride 93, CO2 of 35, glucose 130 and creatinine 0.9. ASSESSMENT: This is an 84-year-old female with recent uncontrolled type 2 diabetes, presenting with acute exacerbation of chronic obstructive pulmonary disease and currently on oral steroid therapy with transient hyperglycemic accelerations as expected thereof from the increased insulin resistance and impaired glucose tolerance thereof. PLAN OF MANAGEMENT: We will continue the oral hypoglycemic therapy given as metformin at 850 mg b.i.d. with meals as ordered. We will obtain serial chemistries and supplement accordingly as needed. We will also continue the low-dose correction scale using Humalog insulin as ordered. We will follow and advise accordingly. Padmaja Yo MD
[2019-03-12] MEDS: Pravastatin Sodium 20 MG TAB PO SCH (21:34)
[2019-03-13] MEDS: Insulin Lispro (humaLOG) 100 Units/ml Inj SC SCH ×4 (06:44→22:48)
[2019-03-13] MEDS: Ipratropium 0.02% Inhal Soln (0.5 mg/2.5 ml) UD IH SCH ×3 (07:31→23:36)
[2019-03-13] MEDS: guaiFENesin-DM 600-30 mg ER Tab PO SCH ×2 (08:15→17:43)
[2019-03-13] MEDS: Azithromycin 500 MG in Sodium Chloride 0.9% 250 ML IVPB SCH (08:26)
[2019-03-13] MEDS: Pantoprazole 40 mg EC Tab PO SCH (10:36)
--- NOTE | 2019-03-13 14:12 | PN ---
DATE: 03/13/2019 ENDOCRINOLOGY FOLLOWUP NOTE LOCATION: In room 712, [facility]. SUBJECTIVE: This is an 84-year-old female with recent acute exacerbation of COPD and initially given steroid therapy, and is now being followed closely for metabolic management. Her glycemic levels are fluctuating, but improved and the glucose values today have ranged from 155-188 mg/dL. LABORATORY DATA: Her chemistry showed a BUN of 27, sodium 133, potassium 4.4, chloride 93, CO2 of 35, glucose 130, and creatinine 0.9. ASSESSMENT: This is an 84-year-old female with recent uncontrolled type 2 diabetes, presenting here with acute exacerbation of chronic obstructive pulmonary disease, now with improved metabolic profile on low-dose oral hypoglycemic therapy as given. PLAN OF MANAGEMENT: We will continue the metformin given as 850 mg b.i.d. with meals as ordered. We will also continue the low-dose correction scale using Humalog insulin as given to obviate hypoglycemia. We will obtain serial chemistries and supplement accordingly as needed. We will follow. Padmaja Yo MD
[2019-03-13] MEDS: Pravastatin Sodium 20 MG TAB PO SCH (22:27)
[2019-03-14 06:28] LABS: MEAN CELL VOLUME 90.3 fl (81.0-99.0); MEAN CORPUSCULAR HEMOGLOBIN 29.9 pg (27.0-31.0); MEAN CORPUSCULAR HGB CONC 33.1 g/dL (33.0-37.0); RBC 5.01 Mil/uL (3.80-5.20); RED CELL DISTRIBUTION WIDTH 12.7 % (11.5-14.5); WHITE BLOOD COUNT 11.4 K/uL (4.8-10.8)
[2019-03-14 06:41] LABS: ALB/GLOB RATIO 1.6 (1.0-2.1); ALBUMIN 3.7 g/dL (3.5-5.0); ALT/SGPT 27 U/L (9-52); AST/SGOT 19 U/L (14-36); BLOOD UREA NITROGEN 28 mg/dl (7-17); CALCIUM 11.9 mg/dL (8.4-10.2); GFR NON-AFRICAN AMERICAN 60
[2019-03-14] MEDS: Insulin Lispro (humaLOG) 100 Units/ml Inj SC SCH ×4 (07:11→23:02)
[2019-03-14] MEDS: Ipratropium 0.02% Inhal Soln (0.5 mg/2.5 ml) UD IH SCH ×2 (07:29→15:56)
[2019-03-14] MEDS: guaiFENesin-DM 600-30 mg ER Tab PO SCH ×2 (09:41→16:46)
[2019-03-14] MEDS: Pantoprazole 40 mg EC Tab PO SCH (09:43)
[2019-03-14] MEDS: Azithromycin 500 MG in Sodium Chloride 0.9% 250 ML IVPB SCH (09:44)
--- NOTE | 2019-03-14 18:14 | PN ---
DATE: 03/14/2019 ENDO FOLLOWUP NOTE ROOM: 712. SUBJECTIVE: This is an 84-year-old female with recent uncontrolled type 2 diabetes, now being followed closely for metabolic management. She presented here with acute exacerbation of COPD and has improved hemodynamically and clinically and only on oral steroid therapy at this time. Her glycemic levels are much improved and are ranging from 94-156 mg/dL today as noted. Her chemistry showed a BUN of 28, sodium 133, potassium 4.1, chloride 96, CO2 of 29, glucose 98 and creatinine 0.9. Her bedtime glucose was 134 mg/dL. ASSESSMENT: This is an 84-year-old female with recent uncontrolled type 2 insulin-requiring diabetes with a prior steroid therapy as given and is now improving clinically and hemodynamically as noted thereof. PLAN OF MANAGEMENT: We will continue the oral hypoglycemic drug therapy given as metformin at 850 mg b.i.d. with meals as ordered. We will continue the low-dose correction scale using Humalog insulin as given. We will also obtain serial chemistries and supplement accordingly as needed. Padmaja Yo MD
[2019-03-14] MEDS: Pravastatin Sodium 20 MG TAB PO SCH (22:34)
[2019-03-15] MEDS: Ipratropium 0.02% Inhal Soln (0.5 mg/2.5 ml) UD IH SCH ×4 (00:21→23:24)
[2019-03-15] MEDS: Insulin Lispro (humaLOG) 100 Units/ml Inj SC SCH ×4 (07:58→21:21)
[2019-03-15] MEDS: guaiFENesin-DM 600-30 mg ER Tab PO SCH ×2 (08:00→16:46)
[2019-03-15] MEDS: Pantoprazole 40 mg EC Tab PO SCH (08:02)
[2019-03-15] MEDS: Azithromycin 500 MG in Sodium Chloride 0.9% 250 ML IVPB SCH (08:02)
--- NOTE | 2019-03-15 09:43 | CP.PCM.PN ---
Subjective - Date & Time of Evaluation Date of Evaluation: 03/15/19 Time of Evaluation: 09:41 - Subjective Subjective: Appears comfortable, seated on EOB. SpO2 94% on room air at rest. Participates with physical therapy. Vital signs are stable. Breath sounds are diminished bilaterally with few scattered dry rales. Objective - Vital Signs/Intake and Output Vital Signs (last 24 hours): Temp Pulse Resp BP Pulse Ox 97.5 F L 91 H 20 132/72 94 L 03/15/19 08:20 03/15/19 08:20 03/15/19 08:20 03/15/19 08:20 03/15/19 08:20 Intake and Output: 03/14/19 03/15/19 23:59 11:59 Intake Total 250 Balance 250 - Medications Medications: Current Medications Acetazolamide (Diamox 250 Mg Tab) 250 mg PO BID [facility] Last Admin: 03/15/19 08:02 Dose: 250 mg Albuterol Sulfate (Albuterol 0.083% Inhal Joleen (2.5 Mg/3 Ml) Ud) 2.5 mg INH RQ4 PRN PRN Reason: Shortness of Breath Amlodipine Besylate (Norvasc) 10 mg PO DAILY [facility] Last Admin: 03/15/19 08:00 Dose: 10 mg Apixaban (Eliquis) 5 mg PO BID [facility]; Protocol Last Admin: 03/15/19 08:01 Dose: 5 mg Benzonatate (Tessalon Perles) 200 mg PO Q8 PRN PRN Reason: Cough Docusate Sodium (Colace) 100 mg PO BID [facility] Last Admin: 03/15/19 08:01 Dose: 100 mg Guaifenesin/Dextromethorphan (Mucinex-Dm 600-30 Mg) 1 tab PO BID [facility] Last Admin: 03/15/19 08:00 Dose: 1 tab Hydrochlorothiazide (Microzide) 12.5 mg PO DAILY [facility] Last Admin: 03/15/19 08:03 Dose: 12.5 mg Azithromycin 500 mg/ Sodium (Chloride) 250 mls @ 250 mls/hr IVPB DAILY [facility]; Protocol Last Admin: 03/15/19 08:02 Dose: 250 mls/hr Insulin Human Lispro (Humalog) 0 units SC ACHS [facility]; Protocol Last Admin: 03/15/19 07:58 Dose: Not Given Ipratropium [place] (Atrovent) 0.5 mg IH RQ8 [facility] Last Admin: 03/15/19 08:27 Dose: 0.5 mg Levalbuterol HCl (Xopenex) 1.25 mg INH RQ8 PRN PRN Reason: Shortness of Breath Last Admin: 03/12/19 07:23 Dose: 1.25 mg Lisinopril (Zestril) 10 mg PO DAILY [facility] Metformin HCl (Glucophage) 850 mg PO BIDWM [facility] Last Admin: 03/15/19 08:03 Dose: 850 mg Pantoprazole Sodium (Protonix Ec Tab) 40 mg PO DAILY [facility] Last Admin: 03/15/19 08:02 Dose: 40 mg Pravastatin Sodium (Pravachol) 20 mg PO HS [facility] Last Admin: 03/14/19 22:34 Dose: 20 mg Prednisone (Prednisone Tab) 15 mg PO DAILY [facility] Last Admin: 03/15/19 08:01 Dose: 15 mg - Labs Labs: 03/14/19 05:10 03/14/19 05:10 Assessment and Plan (1) Chronic cough Status: Chronic (2) Exogenous obesity Status: Chronic
[2019-03-15] MEDS: Pravastatin Sodium 20 MG TAB PO SCH (21:23)
[2019-03-16] MEDS: Insulin Lispro (humaLOG) 100 Units/ml Inj SC SCH ×4 (06:47→21:48)
[2019-03-16] MEDS: Ipratropium 0.02% Inhal Soln (0.5 mg/2.5 ml) UD IH SCH ×3 (07:24→23:37)
--- NOTE | 2019-03-16 08:05 | CP.PCM.PN ---
Subjective - Date & Time of Evaluation Date of Evaluation: 03/16/19 Time of Evaluation: 08:03 - Subjective Subjective: Pt's CBC is stable . Will sign off the case, please recall if needed. Objective - Vital Signs/Intake and Output Vital Signs (last 24 hours): Temp Pulse Resp BP Pulse Ox 98.2 F 98 H 20 120/67 95 03/15/19 19:24 03/15/19 19:24 03/15/19 19:24 03/15/19 19:24 03/15/19 19:24 - Medications Medications: Current Medications Acetazolamide (Diamox 250 Mg Tab) 250 mg PO BID [facility] Last Admin: 03/15/19 16:46 Dose: 250 mg Albuterol Sulfate (Albuterol 0.083% Inhal Joleen (2.5 Mg/3 Ml) Ud) 2.5 mg INH RQ4 PRN PRN Reason: Shortness of Breath Amlodipine Besylate (Norvasc) 10 mg PO DAILY [facility] Last Admin: 03/15/19 08:00 Dose: 10 mg Apixaban (Eliquis) 5 mg PO BID [facility]; Protocol Last Admin: 03/15/19 16:45 Dose: 5 mg Benzonatate (Tessalon Perles) 200 mg PO Q8 PRN PRN Reason: Cough Docusate Sodium (Colace) 100 mg PO BID [facility] Last Admin: 03/15/19 16:46 Dose: 100 mg Guaifenesin/Dextromethorphan (Mucinex-Dm 600-30 Mg) 1 tab PO BID [facility] Last Admin: 03/15/19 16:46 Dose: 1 tab Hydrochlorothiazide (Microzide) 12.5 mg PO DAILY [facility] Last Admin: 03/15/19 08:03 Dose: 12.5 mg Azithromycin 500 mg/ Sodium (Chloride) 250 mls @ 250 mls/hr IVPB DAILY [facility]; Protocol Last Admin: 03/15/19 08:02 Dose: 250 mls/hr Insulin Human Lispro (Humalog) 0 units SC ACHS [facility]; Protocol Last Admin: 03/16/19 06:47 Dose: Not Given Ipratropium [place] (Atrovent) 0.5 mg IH RQ8 [facility] Last Admin: 03/16/19 07:24 Dose: 0.5 mg Levalbuterol HCl (Xopenex) 1.25 mg INH RQ8 PRN PRN Reason: Shortness of Breath Last Admin: 03/12/19 07:23 Dose: 1.25 mg Lisinopril (Zestril) 10 mg PO DAILY [facility] Metformin HCl (Glucophage) 850 mg PO BIDWM [facility] Last Admin: 03/15/19 16:45 Dose: 850 mg Pantoprazole Sodium (Protonix Ec Tab) 40 mg PO DAILY [facility] Last Admin: 03/15/19 08:02 Dose: 40 mg Pravastatin Sodium (Pravachol) 20 mg PO HS [facility] Last Admin: 03/15/19 21:23 Dose: 20 mg Prednisone (Prednisone Tab) 10 mg PO DAILY [facility] - Labs Labs: 03/14/19 05:10 03/14/19 05:10
--- NOTE | 2019-03-16 08:16 | PN ---
DATE: 03/13/2019 SUBJECTIVE: The patient seen and examined. The patient seen for Dr. Miller while he is away. The patient is in the Transitional Care Unit. The patient feels okay. Denies any specific complaint. No chest pain or shortness of breath. PHYSICAL EXAMINATION: GENERAL: The patient is in no acute distress. VITAL SIGNS: Stable. Temperature 97.9, pulse 80, respirations 20, blood pressure 128/69, saturation 97%. HEART: S1, S2, normal and regular. LUNGS: Good bilateral air exchange. ABDOMEN: Soft, nontender. EXTREMITIES: No edema, no calf swelling, no tenderness, no acute ischemia. CENTRAL NERVOUS SYSTEM: Exam is essentially unchanged. DIAGNOSTIC DATA: Available diagnostic data reviewed. WBC 11.7, hemoglobin 14.4, hematocrit 43, platelets 256. SMA-12 is unremarkable. Accu-Cheks are 130, 138, 184, 188 and 155. Endocrinology and Pulmonary followup and consultations noted and appreciated. Overall, the patient is medically stable. Plan as ordered. Antonio Cooney MD
--- NOTE | 2019-03-16 08:20 | PN ---
DATE: 03/15/2019 SUBJECTIVE: The patient seen and examined. Interim events noted. Consults noted and appreciated. Pulmonary and Endocrinology consult and intervention noted and appreciated. The patient remains in transitional care unit, awake and responsive, not using oxygen and comfortable on room air. No complaints of chest pain. No shortness of breath. PHYSICAL EXAMINATION: GENERAL: The patient is in no acute distress. VITAL SIGNS: Stable. HEART: S1 and S2, normal and regular. LUNGS: Good bilateral air exchange. ABDOMEN: Soft, nontender. EXTREMITIES: No edema. No calf swelling. No tenderness. No acute ischemia. CENTRAL NERVOUS SYSTEM: Essentially unchanged. DIAGNOSTIC DATA: Available diagnostic data reviewed. ASSESSMENT AND PLAN: Overall, the patient's general medical condition is stable and improved. Plan as ordered. Antonio Cooney MD
--- NOTE | 2019-03-16 08:29 | PN ---
DATE: 03/14/2019 SUBJECTIVE: The patient seen and examined. Interim events noted. The patient remains in transitional care unit. Sleeping, arousable. Feels okay. Had complaints of constipation. Telephone orders were given. The patient . Feels much better. PHYSICAL EXAMINATION: GENERAL: The patient is in no acute distress. VITAL SIGNS: Stable. HEART: S1, S2. Normal and regular. LUNGS: Good bilateral air exchange. ABDOMEN: Soft, . Antonio Cooney MD
--- NOTE | 2019-03-16 08:36 | PN ---
DATE: 03/15/2019 ENDOCRINOLOGY FOLLOWUP NOTE LOCATION: Room 712. SUBJECTIVE: This is an 84-year-old female with recent uncontrolled type 2 diabetes presenting here with acute exacerbation of COPD and has since then been taken of IV steroid therapy with improved metabolic profile thereof. Her glucose values are fluctuating but improved. The glucose levels have ranged from 133 to 144 and 177 mg/dL. LABORATORY DATA: Her latest chemistry showed a BUN of 28, sodium 133, potassium 4.1, chloride 96, CO2 of 29, BUN 98, creatinine of . ASSESSMENT: This is an 84-year-old female with recent uncontrolled type 2 diabetes on oral hypoglycemic therapy, presenting here with acute exacerbation of chronic obstructive pulmonary disease with transient glycemic accelerations with steroid therapy as given. PLAN OF MANAGEMENT: Will continue to modify the lower dosing of the metformin given 850 mg two times daily before meals as ordered. Will obtain serial chemistries and supplement accordingly as needed. Will followup. Padmaja Yo MD
[2019-03-16] MEDS: Azithromycin 500 MG in Sodium Chloride 0.9% 250 ML IVPB SCH (08:48)
[2019-03-16] MEDS: guaiFENesin-DM 600-30 mg ER Tab PO SCH ×2 (08:50→16:48)
[2019-03-16] MEDS: Pantoprazole 40 mg EC Tab PO SCH (08:51)
--- NOTE | 2019-03-16 10:08 | CP.PCM.PN ---
<Tatiana Hernandez - Last Filed: 03/16/19 10:18> Subjective - Date & Time of Evaluation Date of Evaluation: 03/16/19 Time of Evaluation: 09:30 - Subjective Subjective: Patient seen and examined this morning with Dr. Wen/Pulmonary Patient reports only minimum cough now, denies any chest pain, SOB at rest or dizziness Saturating >92% on RA at rest C/w PT VS reviewed today PE: Pulmonary exam: Breath sounds are diminished bilaterally with few scattered dry rales, improved from previous exams, No wheezing, No bronchial breath sounds or egophony. Trace dependant edema, no cyanosis or calf tenderness. Pharynx is pink and moist w/o exudate. Neck is supple and trachea midline. No dullness on chest percussion. Heart sounds are distant Will continue steroid PO daily, decreased to 10mg PO today C/w cough suppressant as ordered C/w Azithro C/w Xopenex with ipratropium Q8H AirDuo inhaler on hold for tachycardia C/w acetazolamide C/w Norvasc to 10mg Objective - Vital Signs/Intake and Output Vital Signs (last 24 hours): Temp Pulse Resp BP Pulse Ox 98.2 F 101 H 20 147/69 95 03/15/19 19:24 03/16/19 08:52 03/15/19 19:24 03/16/19 08:52 03/15/19 19:24 - Medications Medications: Current Medications Acetazolamide (Diamox 250 Mg Tab) 250 mg PO BID [facility] Last Admin: 03/16/19 08:50 Dose: 250 mg Albuterol Sulfate (Albuterol 0.083% Inhal Joleen (2.5 Mg/3 Ml) Ud) 2.5 mg INH RQ4 PRN PRN Reason: Shortness of Breath Amlodipine Besylate (Norvasc) 10 mg PO DAILY [facility] Last Admin: 03/16/19 08:52 Dose: 10 mg Apixaban (Eliquis) 5 mg PO BID [facility]; Protocol Last Admin: 03/16/19 08:52 Dose: 5 mg Benzonatate (Tessalon Perles) 200 mg PO Q8 PRN PRN Reason: Cough Docusate Sodium (Colace) 100 mg PO BID [facility] Last Admin: 03/16/19 08:51 Dose: 100 mg Guaifenesin/Dextromethorphan (Mucinex-Dm 600-30 Mg) 1 tab PO BID [facility] Last Admin: 03/16/19 08:50 Dose: 1 tab Hydrochlorothiazide (Microzide) 12.5 mg PO DAILY [facility] Last Admin: 03/16/19 08:52 Dose: 12.5 mg Azithromycin 500 mg/ Sodium (Chloride) 250 mls @ 250 mls/hr IVPB DAILY [facility]; Protocol Last Admin: 03/16/19 08:48 Dose: 250 mls/hr Insulin Human Lispro (Humalog) 0 units SC ACHS [facility]; Protocol Last Admin: 03/16/19 06:47 Dose: Not Given Ipratropium [place] (Atrovent) 0.5 mg IH RQ8 [facility] Last Admin: 03/16/19 07:24 Dose: 0.5 mg Levalbuterol HCl (Xopenex) 1.25 mg INH RQ8 PRN PRN Reason: Shortness of Breath Last Admin: 03/12/19 07:23 Dose: 1.25 mg Lisinopril (Zestril) 10 mg PO DAILY [facility] Metformin HCl (Glucophage) 850 mg PO BIDWM [facility] Last Admin: 03/16/19 08:49 Dose: 850 mg Pantoprazole Sodium (Protonix Ec Tab) 40 mg PO DAILY [facility] Last Admin: 03/16/19 08:51 Dose: 40 mg Pravastatin Sodium (Pravachol) 20 mg PO HS [facility] Last Admin: 03/15/19 21:23 Dose: 20 mg Prednisone (Prednisone Tab) 10 mg PO DAILY [facility] Last Admin: 03/16/19 08:52 Dose: 10 mg - Labs Labs: 03/14/19 05:10 03/14/19 05:10 - Constitutional Appears: No Acute Distress - Head Exam Head Exam: NORMAL INSPECTION - Eye Exam Eye Exam: Normal appearance - ENT Exam ENT Exam: Mucous Membranes Moist - Neck Exam Neck Exam: Normal Inspection - Respiratory Exam Respiratory Exam: Decreased Breath Sounds, Rales. absent: Wheezes Additional comments: Breath sounds are diminished bilaterally with few scattered dry rales. - Cardiovascular Exam Cardiovascular Exam: REGULAR RHYTHM - GI/Abdominal Exam GI & Abdominal Exam: Soft. absent: Tenderness - Back Exam Back Exam: NORMAL INSPECTION - Neurological Exam Neurological Exam: Alert, Awake - Psychiatric Exam Psychiatric exam: Normal Affect - Skin Skin Exam: Normal Color Assessment and Plan (1) Chronic cough Assessment & Plan: Improved Status: Chronic (2) Exogenous obesity Assessment & Plan: Encourage lifestyle modification/Weight loss Status: Chronic <Willy Wen - Last Filed: 03/16/19 13:18> Subjective - Subjective Subjective: The patient was seen and examined together with the residents. Physical findings were reviewed and discussed. Interim events were also reviewed. Continued management was discussed and agreed upon. The EMR accurately accurately reflects this activity. Objective - Vital Signs/Intake and Output Vital Signs (last 24 hours): Temp Pulse Resp BP Pulse Ox 97.9 F 90 18 147/69 97 03/16/19 08:00 03/16/19 11:33 03/16/19 08:00 03/16/19 11:33 03/16/19 11:33 - Medications Medications: Current Medications Acetazolamide (Diamox 250 Mg Tab) 250 mg PO BID [facility] Last Admin: 03/16/19 08:50 Dose: 250 mg Albuterol Sulfate (Albuterol 0.083% Inhal Joleen (2.5 Mg/3 Ml) Ud) 2.5 mg INH RQ4 PRN PRN Reason: Shortness of Breath Amlodipine Besylate (Norvasc) 10 mg PO DAILY [facility] Last Admin: 03/16/19 08:52 Dose: 10 mg Apixaban (Eliquis) 5 mg PO BID [facility]; Protocol Last Admin: 03/16/19 08:52 Dose: 5 mg Benzonatate (Tessalon Perles) 200 mg PO Q8 PRN PRN Reason: Cough Docusate Sodium (Colace) 100 mg PO BID [facility] Last Admin: 03/16/19 08:51 Dose: 100 mg Guaifenesin/Dextromethorphan (Mucinex-Dm 600-30 Mg) 1 tab PO BID [facility] Last Admin: 03/16/19 08:50 Dose: 1 tab Hydrochlorothiazide (Microzide) 12.5 mg PO DAILY [facility] Last Admin: 03/16/19 08:52 Dose: 12.5 mg Azithromycin 500 mg/ Sodium (Chloride) 250 mls @ 250 mls/hr IVPB DAILY [facility]; Protocol Last Admin: 03/16/19 08:48 Dose: 250 mls/hr Insulin Human Lispro (Humalog) 0 units SC ACHS [facility]; Protocol Last Admin: 03/16/19 06:47 Dose: Not Given Ipratropium [place] (Atrovent) 0.5 mg IH RQ8 [facility] Last Admin: 03/16/19 07:24 Dose: 0.5 mg Levalbuterol HCl (Xopenex) 1.25 mg INH RQ8 PRN PRN Reason: Shortness of Breath Last Admin: 03/12/19 07:23 Dose: 1.25 mg Lisinopril (Zestril) 10 mg PO DAILY [facility] Metformin HCl (Glucophage) 850 mg PO BIDWM [facility] Last Admin: 03/16/19 08:49 Dose: 850 mg Pantoprazole Sodium (Protonix Ec Tab) 40 mg PO DAILY [facility] Last Admin: 03/16/19 08:51 Dose: 40 mg Pravastatin Sodium (Pravachol) 20 mg PO HS [facility] Last Admin: 03/15/19 21:23 Dose: 20 mg Prednisone (Prednisone Tab) 10 mg PO DAILY [facility] Last Admin: 03/16/19 08:52 Dose: 10 mg - Labs Labs: 03/14/19 05:10 03/14/19 05:10 Assessment and Plan (1) Chronic cough Status: Chronic (2) Exogenous obesity Status: Chronic
--- NOTE | 2019-03-16 20:36 | CP.PCM.PN ---
Subjective - Date & Time of Evaluation Date of Evaluation: 03/16/19 Time of Evaluation: 22:22 - Subjective Subjective: Above noted Objective - Vital Signs/Intake and Output Vital Signs (last 24 hours): Temp Pulse Resp BP Pulse Ox 97.5 F L 101 H 18 145/76 94 L 03/16/19 20:04 03/16/19 20:04 03/16/19 20:04 03/16/19 20:04 03/16/19 20:04 - Medications Medications: Current Medications Acetazolamide (Diamox 250 Mg Tab) 250 mg PO BID [facility] Last Admin: 03/16/19 16:47 Dose: 250 mg Albuterol Sulfate (Albuterol 0.083% Inhal Joleen (2.5 Mg/3 Ml) Ud) 2.5 mg INH RQ4 PRN PRN Reason: Shortness of Breath Amlodipine Besylate (Norvasc) 10 mg PO DAILY [facility] Last Admin: 03/16/19 08:52 Dose: 10 mg Apixaban (Eliquis) 5 mg PO BID [facility]; Protocol Last Admin: 03/16/19 16:47 Dose: 5 mg Benzonatate (Tessalon Perles) 200 mg PO Q8 PRN PRN Reason: Cough Docusate Sodium (Colace) 100 mg PO BID [facility] Last Admin: 03/16/19 16:46 Dose: 100 mg Guaifenesin/Dextromethorphan (Mucinex-Dm 600-30 Mg) 1 tab PO BID [facility] Last Admin: 03/16/19 16:48 Dose: 1 tab Hydrochlorothiazide (Microzide) 12.5 mg PO DAILY [facility] Last Admin: 03/16/19 08:52 Dose: 12.5 mg Azithromycin 500 mg/ Sodium (Chloride) 250 mls @ 250 mls/hr IVPB DAILY [facility]; Protocol Last Admin: 03/16/19 08:48 Dose: 250 mls/hr Insulin Human Lispro (Humalog) 0 units SC ACHS [facility]; Protocol Last Admin: 03/16/19 16:47 Dose: 1 unit Ipratropium [place] (Atrovent) 0.5 mg IH RQ8 [facility] Last Admin: 03/16/19 15:23 Dose: 0.5 mg Levalbuterol HCl (Xopenex) 1.25 mg INH RQ8 PRN PRN Reason: Shortness of Breath Last Admin: 03/12/19 07:23 Dose: 1.25 mg Lisinopril (Zestril) 10 mg PO DAILY [facility] Metformin HCl (Glucophage) 850 mg PO BIDWM [facility] Last Admin: 03/16/19 16:48 Dose: 850 mg Pantoprazole Sodium (Protonix Ec Tab) 40 mg PO DAILY [facility] Last Admin: 03/16/19 08:51 Dose: 40 mg Pravastatin Sodium (Pravachol) 20 mg PO HS [facility] Last Admin: 03/15/19 21:23 Dose: 20 mg Prednisone (Prednisone Tab) 10 mg PO DAILY [facility] Last Admin: 03/16/19 08:52 Dose: 10 mg - Labs Labs: 03/14/19 05:10 03/14/19 05:10 - Respiratory Exam Respiratory Exam: NORMAL BREATHING PATTERN - Cardiovascular Exam Cardiovascular Exam: REGULAR RHYTHM - GI/Abdominal Exam GI & Abdominal Exam: Normal Bowel Sounds Assessment and Plan - Assessment and Plan (Free Text) Assessment: Deconditioning TCU COPD acute excerbation Pneumonia? Persistent cough LALITO d/c Steroids Bronchodilators ABX O2 Pulmonary ENT Hyperparathyroidism ? serum PTH intact Endo Thyroid ?? Endo NIDDM Endo Cont meds HX CVA Afib on Eliquis HTN LALITO d/c Norvasc Dig started BNP ?? Echo LVH with LV ej fx 65-70% Cardiology MDS Hematology note appreciated LBP
[2019-03-16] MEDS: Pravastatin Sodium 20 MG TAB PO SCH (21:00)
--- NOTE | 2019-03-16 23:55 | PN ---
DATE: 03/16/2019 ENDOCRINOLOGY FOLLOWUP NOTE LOCATION: 712. SUBJECTIVE: This is an 84-year-old female with recent uncontrolled type 2 diabetes, now being followed closely for metabolic management. Her glycemic levels are fluctuating, but much improved at this time and her glucose levels overnight have ranged from 132 to 187 and 198 mg/dL. Her chemistry showed a BUN of 28, sodium 133, potassium 4.1, chloride 96, CO2 of 29, glucose 98 and creatinine 0.9. ASSESSMENT: This is an 84-year-old female with recent uncontrolled type 2 diabetes, presenting here with acute exacerbation of chronic obstructive pulmonary disease and has now improved clinically and hemodynamically as noted thereof. PLAN OF MANAGEMENT: We will continue the same dosing of her metformin given as 850 mg b.i.d. as ordered. We will obtain serial chemistries and supplement accordingly as needed. There was some elevated calcium level today of 11.5 and the most likely etiology would be early dehydration as noted thereof. However, with this age category, it is also common to find subclinical hypercalcemia related to underlying primary hyperparathyroidism. So, we will obtain repeat chemistries tomorrow morning to include an ionized calcium, magnesium and phosphorus levels. A PTH intact level was also ordered for tomorrow as noted. We will obtain serial chemistries and supplement accordingly as needed. We will follow. Padmaja Yo MD
[2019-03-17] MEDS: Insulin Lispro (humaLOG) 100 Units/ml Inj SC SCH ×4 (06:54→21:30)
[2019-03-17 07:17] LABS: ALB/GLOB RATIO 1.6 (1.0-2.1); ALBUMIN 3.5 g/dL (3.5-5.0); ALT/SGPT 28 U/L (9-52); AST/SGOT 18 U/L (14-36); BLOOD UREA NITROGEN 24 mg/dl (7-17); CALCIUM 11.4 mg/dL (8.4-10.2); GFR NON-AFRICAN AMERICAN > 60
[2019-03-17] MEDS: Ipratropium 0.02% Inhal Soln (0.5 mg/2.5 ml) UD IH SCH ×3 (07:17→23:17)
[2019-03-17] MEDS: Azithromycin 500 MG in Sodium Chloride 0.9% 250 ML IVPB SCH (09:05)
[2019-03-17] MEDS: Pantoprazole 40 mg EC Tab PO SCH (09:05)
[2019-03-17] MEDS: guaiFENesin-DM 600-30 mg ER Tab PO SCH ×2 (09:06→16:20)
[2019-03-17 09:37] VITALS: RESP 20
--- NOTE | 2019-03-17 19:49 | CP.PCM.PN ---
Subjective - Date & Time of Evaluation Date of Evaluation: 03/17/19 Time of Evaluation: 22:22 - Subjective Subjective: Above noted Doing well Objective - Vital Signs/Intake and Output Vital Signs (last 24 hours): Temp Pulse Resp BP Pulse Ox 98.2 F 84 20 117/74 94 L 03/17/19 17:41 03/17/19 17:41 03/17/19 17:41 03/17/19 17:41 03/17/19 17:41 - Medications Medications: Current Medications Acetazolamide (Diamox 250 Mg Tab) 250 mg PO BID [facility] Last Admin: 03/17/19 16:20 Dose: 250 mg Albuterol Sulfate (Albuterol 0.083% Inhal Joleen (2.5 Mg/3 Ml) Ud) 2.5 mg INH RQ4 PRN PRN Reason: Shortness of Breath Amlodipine Besylate (Norvasc) 10 mg PO DAILY [facility] Last Admin: 03/17/19 09:04 Dose: 10 mg Apixaban (Eliquis) 5 mg PO BID [facility]; Protocol Last Admin: 03/17/19 16:20 Dose: 5 mg Benzonatate (Tessalon Perles) 200 mg PO Q8 PRN PRN Reason: Cough Docusate Sodium (Colace) 100 mg PO BID [facility] Last Admin: 03/17/19 16:20 Dose: 100 mg Guaifenesin/Dextromethorphan (Mucinex-Dm 600-30 Mg) 1 tab PO BID [facility] Last Admin: 03/17/19 16:20 Dose: 1 tab Hydrochlorothiazide (Microzide) 12.5 mg PO DAILY [facility] Last Admin: 03/17/19 09:03 Dose: 12.5 mg Azithromycin 500 mg/ Sodium (Chloride) 250 mls @ 250 mls/hr IVPB DAILY [facility]; Protocol Last Admin: 03/17/19 09:05 Dose: 250 mls/hr Insulin Human Lispro (Humalog) 0 units SC ACHS [facility]; Protocol Last Admin: 03/17/19 16:21 Dose: 1 unit Ipratropium [place] (Atrovent) 0.5 mg IH RQ8 [facility] Last Admin: 03/17/19 15:33 Dose: Not Given Levalbuterol HCl (Xopenex) 1.25 mg INH RQ8 PRN PRN Reason: Shortness of Breath Last Admin: 03/12/19 07:23 Dose: 1.25 mg Lisinopril (Zestril) 10 mg PO DAILY [facility] Metformin HCl (Glucophage) 850 mg PO BIDWM [facility] Last Admin: 03/17/19 16:21 Dose: 850 mg Pantoprazole Sodium (Protonix Ec Tab) 40 mg PO DAILY [facility] Last Admin: 03/17/19 09:05 Dose: 40 mg Pravastatin Sodium (Pravachol) 20 mg PO HS [facility] Last Admin: 03/16/19 21:00 Dose: 20 mg Prednisone (Prednisone Tab) 10 mg PO DAILY [facility] Last Admin: 03/17/19 09:04 Dose: 10 mg - Labs Labs: 03/14/19 05:10 03/17/19 06:45 - Respiratory Exam Respiratory Exam: NORMAL BREATHING PATTERN - Cardiovascular Exam Cardiovascular Exam: REGULAR RHYTHM - GI/Abdominal Exam GI & Abdominal Exam: Normal Bowel Sounds Assessment and Plan - Assessment and Plan (Free Text) Assessment: Deconditioning TCU COPD acute excerbation Pneumonia? Persistent cough LALITO d/c Steroids Bronchodilators ABX O2 Pulmonary ENT Hyperparathyroidism ? serum PTH intact Endo Thyroid ?? Endo NIDDM Endo Cont meds HX CVA Afib on Eliquis HTN LALITO d/c Norvasc Dig started BNP ?? Echo LVH with LV ej fx 65-70% Cardiology MDS Hematology note appreciated LBP
--- NOTE | 2019-03-17 20:05 | PN ---
DATE: 03/17/2019 ENDOCRINOLOGY FOLLOWUP NOTE LOCATION: 712. SUBJECTIVE: This is an 84-year-old female with recent uncontrolled type 2 diabetes, presenting here with acute exacerbation of COPD and is now being followed closely for metabolic management. Her glycemic levels today are fluctuating, but improved and the glucose values have ranged from 158 to 188 mg/dL. Her chemistries showed a BUN of 24, sodium 133, potassium 3.9, chloride 98, CO2 of 28, glucose 127 and creatinine 0.8. ASSESSMENT: This is an 84-year-old female with uncontrolled and decompensated type 2 diabetes with near optimal metabolic control on oral hypoglycemic therapy, presenting with acute exacerbation of chronic obstructive pulmonary disease as noted. PLAN OF MANAGEMENT: We will continue the metformin given as 850 mg b.i.d. with meals as ordered to allow for full dose equilibration. If hyperglycemic levels persist, then may consider the addition of Januvia at 50 mg once daily as indicated. We will continue the low-dose correction scale using Humalog insulin as ordered. We will follow and advise accordingly. Padmaja Yo MD
[2019-03-17] MEDS: Pravastatin Sodium 20 MG TAB PO SCH (21:13)
[2019-03-18] MEDS: Insulin Lispro (humaLOG) 100 Units/ml Inj SC SCH ×4 (06:44→21:39)
[2019-03-18] MEDS: guaiFENesin-DM 600-30 mg ER Tab PO SCH ×2 (08:31→17:00)
[2019-03-18] MEDS: Pantoprazole 40 mg EC Tab PO SCH (08:32)
[2019-03-18] MEDS: Ipratropium 0.02% Inhal Soln (0.5 mg/2.5 ml) UD IH SCH ×3 (08:42→23:06)
--- NOTE | 2019-03-18 10:19 | CP.PCM.PN ---
Subjective - Date & Time of Evaluation Date of Evaluation: 03/18/19 Time of Evaluation: 10:17 - Subjective Subjective: Remains stable on transitional care. Minimal cough using Mucinex 600 BID. Vital signs remain stable. Participates in physical therapy. Will obtain CXR today, PA/LATERAL. Plan is for discharge to home tomorrow. Medications reviewed and updated: Prednisone reduced to 5MG POOD for next 5 days then D/C. Ipratropium can be used TID/QID via nebulizer, or once daily Spiriva. Xopenex HFA for rescue inhaler PRN. Diamox discontinued/lisinopril discontinued. Advair discontinued. Objective - Vital Signs/Intake and Output Vital Signs (last 24 hours): Temp Pulse Resp BP Pulse Ox 97.9 F 85 20 105/57 L 96 03/18/19 08:48 03/18/19 08:48 03/18/19 08:48 03/18/19 08:48 03/18/19 08:48 - Medications Medications: Current Medications Amlodipine Besylate (Norvasc) 10 mg PO DAILY [facility] Last Admin: 03/18/19 08:33 Dose: 10 mg Apixaban (Eliquis) 5 mg PO BID [facility]; Protocol Last Admin: 03/18/19 08:30 Dose: 5 mg Docusate Sodium (Colace) 100 mg PO BID [facility] Last Admin: 03/18/19 08:30 Dose: 100 mg Guaifenesin/Dextromethorphan (Mucinex-Dm 600-30 Mg) 1 tab PO BID [facility] Last Admin: 03/18/19 08:31 Dose: 1 tab Hydrochlorothiazide (Microzide) 12.5 mg PO DAILY [facility] Last Admin: 03/18/19 08:31 Dose: 12.5 mg Insulin Human Lispro (Humalog) 0 units SC [facility]; Protocol Last Admin: 03/18/19 06:44 Dose: Not Given Ipratropium [place] (Atrovent) 0.5 mg IH RQ8 [facility] Last Admin: 03/18/19 08:42 Dose: 0.5 mg Metformin HCl (Glucophage) 850 mg PO BIDWM [facility] Last Admin: 03/18/19 08:30 Dose: 850 mg Pantoprazole Sodium (Protonix Ec Tab) 40 mg PO DAILY [facility] Last Admin: 03/18/19 08:32 Dose: 40 mg Pravastatin Sodium (Pravachol) 20 mg PO HS [facility] Last Admin: 03/17/19 21:13 Dose: 20 mg Prednisone (Prednisone Tab) 5 mg PO DAILY [facility] - Labs Labs: 03/14/19 05:10 03/17/19 06:45 Assessment and Plan (1) Chronic cough Status: Chronic (2) Exogenous obesity Status: Chronic
--- NOTE | 2019-03-18 11:22 | RAD ---
Date of service: 03/18/2019 HISTORY: cough COMPARISON: 03/06/2019 TECHNIQUE: Chest PA and lateral views FINDINGS: LUNGS: Lung volumes lower limits of normal frontal view decreased on lateral. Prior inference infiltrate/atelectasis at left lung base no longer seen. Asymmetrical increased soft tissue density perceived medial right lung base-summation of soft tissues versus atelectasis subsegmental and/or inflammatory peribronchial thickening patchy infiltrate are some considerations. The density here at the medial right lung base appears increased since the prior exam. The fluid in the lateral right minor fissure has decreased. The relative increased soft tissue densities along each peripheral lateral hemithorax right greater than left is likely due to summation of soft tissues in this patient with large body habitus. PLEURA: No significant pleural effusion identified. No pneumothorax apparent. CARDIOVASCULAR: No aortic atherosclerotic calcification present. Cardiomegaly No significant appearing pulmonary venous congestion. OSSEOUS STRUCTURES: No significant abnormalities. VISUALIZED UPPER ABDOMEN: Normal. OTHER FINDINGS: None. IMPRESSION: Interval improved aeration medial left lung base. Interval increased opacity/soft tissue density perceived medial right lung base as detailed above nonspecific indeterminate. Recommend follow-up chest x-ray with greater inspiration in the PA and lateral view when patient can tolerate. If not possible, consider noncontrast CT chest to clarify.
--- NOTE | 2019-03-18 16:52 | PN ---
DATE: 03/18/2019 ENDOCRINOLOGY FOLLOWUP NOTE LOCATION: Room 712 [facility]. SUBJECTIVE: This is an 84-year-old female with recent uncontrolled type 2 diabetes, now with improved metabolic profile on just oral hypoglycemic therapy and is now being followed closely for metabolic management. Her glycemic levels are near optimal at this time and the glucose values have ranged from 124-129 and 175 mg/dL. LABORATORY DATA: Her chemistry showed a BUN of 24, sodium 133, potassium 3.9, chloride 98, CO2 of 28, glucose 158 and creatinine 0.8. Her calcium level is 11.4 with an albumin level of 3.5, ionized calcium is 6.9 which is elevated and the magnesium is 1.1. ASSESSMENT: This is an 84-year-old female with uncontrolled type 2 diabetes, now with near optimal metabolic control on oral hypoglycemic drug therapy and is now being followed closely for metabolic management. Moreover, she also has persistent hypercalcemia related to multifactorial etiology at this time. The patient is currently on diuretic therapy with hydrochlorothiazide which can contribute to the hypercalcemia as noted above. We will also exclude the possibility of a very common hormonal entity in this age group category with the so-called primary hyperparathyroidism with mild hypercalcemia as noted thereof. Moreover, she also has mild dehydration and prerenal azotemia which will contribute to the hypercalcemia thereof. PLAN OF MANAGEMENT: We will continue the metformin given as 850 mg b.i.d. as ordered. We will also add Slow-Mag or magnesium supplementation called Slow-Mag at 8 mEq p.o. b.i.d. as ordered. We will obtain serial chemistries and supplement accordingly as needed. We are still awaiting the full report of the PTH intact level which will confirm and/or indicate the presence of underlying primary hyperparathyroidism. We will follow. Padmaja Yo MD
[2019-03-18] MEDS: Magnesium Chloride 64 mg ER Tab PO SCH (18:26)
--- NOTE | 2019-03-18 20:22 | CP.PCM.PN ---
Subjective - Date & Time of Evaluation Date of Evaluation: 03/18/19 Time of Evaluation: 22:22 - Subjective Subjective: Pulmonary note appreciated Objective - Vital Signs/Intake and Output Vital Signs (last 24 hours): Temp Pulse Resp BP Pulse Ox 97.0 F L 101 H 20 126/70 97 03/18/19 19:15 03/18/19 19:15 03/18/19 19:15 03/18/19 19:15 03/18/19 19:15 - Medications Medications: Current Medications Amlodipine Besylate (Norvasc) 10 mg PO DAILY [facility] Last Admin: 03/18/19 08:33 Dose: 10 mg Apixaban (Eliquis) 5 mg PO BID [facility]; Protocol Last Admin: 03/18/19 16:23 Dose: 5 mg Docusate Sodium (Colace) 100 mg PO BID [facility] Last Admin: 03/18/19 16:21 Dose: 100 mg Guaifenesin/Dextromethorphan (Mucinex-Dm 600-30 Mg) 1 tab PO BID [facility] Last Admin: 03/18/19 17:00 Dose: 1 tab Insulin Human Lispro (Humalog) 0 units SC [facility]; Protocol Last Admin: 03/18/19 17:30 Dose: 1 unit Ipratropium [place] (Atrovent) 0.5 mg IH RQ8 [facility] Last Admin: 03/18/19 15:04 Dose: 0.5 mg Magnesium Chloride (Slow-Mag) 64 mg PO BID [facility] Last Admin: 03/18/19 18:26 Dose: 64 mg Metformin HCl (Glucophage) 850 mg PO BIDWM [facility] Last Admin: 03/18/19 16:21 Dose: 850 mg Pantoprazole Sodium (Protonix Ec Tab) 40 mg PO DAILY [facility] Last Admin: 03/18/19 08:32 Dose: 40 mg Pravastatin Sodium (Pravachol) 20 mg PO HS [facility] Last Admin: 03/17/19 21:13 Dose: 20 mg Prednisone (Prednisone Tab) 5 mg PO DAILY [facility] - Labs Labs: 03/14/19 05:10 03/17/19 06:45 - Respiratory Exam Respiratory Exam: NORMAL BREATHING PATTERN - Cardiovascular Exam Cardiovascular Exam: Tachycardia, REGULAR RHYTHM - GI/Abdominal Exam GI & Abdominal Exam: Normal Bowel Sounds Assessment and Plan - Assessment and Plan (Free Text) Assessment: Deconditioning TCU COPD acute excerbation Pneumonia? Persistent cough LALITO d/c Steroids Bronchodilators ABX O2 Pulmonary ENT Hyperparathyroidism ? serum PTH intact Endo Thyroid ?? Endo NIDDM Endo Cont meds HX CVA Afib on Eliquis HTN LALITO d/c Norvasc Dig started BNP ?? Echo LVH with LV ej fx 65-70% Cardiology MDS Hematology note appreciated LBP
[2019-03-18] MEDS: Pravastatin Sodium 20 MG TAB PO SCH (21:41)
[2019-03-19] MEDS: Insulin Lispro (humaLOG) 100 Units/ml Inj SC SCH ×4 (06:35→21:54)
[2019-03-19 06:52] LABS: ALB/GLOB RATIO 1.5 (1.0-2.1); ALBUMIN 3.3 g/dL (3.5-5.0); ALT/SGPT 28 U/L (9-52); AST/SGOT 17 U/L (14-36); BLOOD UREA NITROGEN 23 mg/dl (7-17); CALCIUM 10.5 mg/dL (8.4-10.2); GFR NON-AFRICAN AMERICAN > 60
[2019-03-19] MEDS: Ipratropium 0.02% Inhal Soln (0.5 mg/2.5 ml) UD IH SCH (08:17)
[2019-03-19] MEDS: Magnesium Chloride 64 mg ER Tab PO SCH ×2 (08:35→16:43)
[2019-03-19] MEDS: guaiFENesin-DM 600-30 mg ER Tab PO SCH ×2 (08:36→16:42)
[2019-03-19] MEDS: Pantoprazole 40 mg EC Tab PO SCH (08:39)
[2019-03-19] MEDS ORDERED: Magnesium Oxide 400 mg Tab UD PO ONE (11:53)
[2019-03-19] MEDS ORDERED: Tiotropium 18 mcg Cap For Inhalation INH ONE (11:56)
--- NOTE | 2019-03-19 12:00 | CP.PCM.PN ---
Subjective - Date & Time of Evaluation Date of Evaluation: 03/19/19 Time of Evaluation: 11:57 - Subjective Subjective: Has recovered well. Only occassional cough. Doing physical therapy without problem. No audible wheezes. Occasional dry rales in bases. Will give one dose of Spiriva today before discharge to acclimate her to this rx. On D/C today continue Spiriva once daily, Xopenex HFA as needed, prednisone 5MG POOD for 5 days. Objective - Vital Signs/Intake and Output Vital Signs (last 24 hours): Temp Pulse Resp BP Pulse Ox 97.7 F 89 20 126/72 96 03/19/19 08:17 03/19/19 08:38 03/19/19 08:17 03/19/19 08:38 03/19/19 08:17 - Medications Medications: Current Medications Amlodipine Besylate (Norvasc) 10 mg PO DAILY [facility]S [facility] Last Admin: 03/19/19 08:38 Dose: 10 mg Apixaban (Eliquis) 5 mg PO BID [facility]S [facility]; Protocol Last Admin: 03/19/19 08:37 Dose: 5 mg Docusate Sodium (Colace) 100 mg PO BID [facility] BEDS AT [facility] Last Admin: 03/19/19 08:37 Dose: 100 mg Guaifenesin/Dextromethorphan (Mucinex-Dm 600-30 Mg) 1 tab PO BID [facility] 234 BEDS AT [facility] Last Admin: 03/19/19 08:36 Dose: 1 tab Insulin Human Lispro (Humalog) 0 units SC [facility] COUNTS INCLUDE 234 BEDS AT THE [facility]; Protocol Last Admin: 03/19/19 06:35 Dose: Not Given Magnesium Chloride (Slow-Mag) 64 mg PO BID [facility] 234 BEDS AT [facility] Last Admin: 03/19/19 08:35 Dose: 64 mg Metformin HCl (Glucophage) 850 mg PO BIDWM [facility]S [facility]CLUDE 234 BEDS AT [facility] Last Admin: 03/19/19 08:36 Dose: 850 mg Pantoprazole Sodium (Protonix Ec Tab) 40 mg PO DAILY [facility] 234 BEDS AT [facility] Last Admin: 03/19/19 08:39 Dose: 40 mg Pravastatin Sodium (Pravachol) 20 mg PO HS [facility] 234 BEDS AT [facility] Last Admin: 03/18/19 21:41 Dose: 20 mg Prednisone (Prednisone Tab) 5 mg PO DAILY [facility] 234 BEDS AT [facility] Last Admin: 03/19/19 08:38 Dose: 5 mg Tiotropium [place] (Spiriva) 18 mcg INH ONCE ONE Stop: 03/19/19 11:57 - Labs Labs: 03/14/19 05:10 03/19/19 06:00 Assessment and Plan (1) Chronic cough Status: Chronic (2) Exogenous obesity Status: Chronic
[2019-03-19] MEDS ORDERED: Potassium Chloride 20 mEq ER Tab PO ONE (14:45)
--- NOTE | 2019-03-19 15:27 | CP.PCM.CON ---
History of Present Illness - History of Present Illness History of Present Illness: This 84 years of age female I was called to see her for abnormal potassium hypokalemia and hypomagnesemia. Patient located in the subacute unit for deconditioning and receiving physical therapy also patient has been taking Lasix and prior to that she was on hydrochlorothiazide. Risks of the medication has been reviewed No chest pain no shortness of breath at the present Social history as noted in the medical record Past medical history according to the record with a history of atrial fibrillation also history of hypertension history of CVA Review of Systems - Constitutional Constitutional: absent: Anorexia, Chills - EENT Nose/Mouth/Throat: absent: Nasal Congestion - Cardiovascular Cardiovascular: absent: Acrocyanosis, Chest Pain, Dyspnea - Respiratory Respiratory: absent: Cough, Dyspnea, Hemoptysis - Gastrointestinal Gastrointestinal: absent: Abdominal Pain - Musculoskeletal Musculoskeletal: Muscle Weakness - Neurological Neurological: absent: Confusion, Focal Weakness - Psychiatric Psychiatric: absent: Anxiety - Endocrine Endocrine: Fatigue - Hematologic/Lymphatic Hematologic: absent: Easy Bleeding Past Patient History - Infectious Disease Hx of Infectious Diseases: None - Past Medical History & Family History Past Medical History?: Yes - Past Social History Smoking Status: Never Smoked Chewing Tobacco Use: No Cigar Use: No Alcohol: None Drugs: Denies - CARDIAC Hx Cardia Arrhythmia: Yes Hx Hypertension: Yes - PULMONARY Hx Asthma: Yes Hx Bronchitis: Yes Hx Chronic Obstructive Pulmonary Disease (COPD): Yes - NEUROLOGICAL Hx Neurological Disorder: No - HEENT Hx HEENT Problems: No - RENAL Hx Chronic Kidney Disease: No - ENDOCRINE/METABOLIC Hx Diabetes Mellitus Type 2: Yes - HEMATOLOGICAL/ONCOLOGICAL Hx Blood Disorders: No - INTEGUMENTARY Other/Comment: Zoster - MUSCULOSKELETAL/RHEUMATOLOGICAL Hx Arthritis: Yes Hx Falls: No Hx Spinal Stenosis: Yes - GASTROINTESTINAL Hx Gastrointestinal Disorders: No - GENITOURINARY/GYNECOLOGICAL Hx Genitourinary Disorders: No - PSYCHIATRIC Hx Psychophysiologic Disorder: No Hx Substance Use: No - SURGICAL HISTORY Hx Breast Biopsy: Yes (Right breast as per daughter.) Hx Orthopedic Surgery: Yes (lumbar surgery-1997) Other/Comment: RIGHT HAND SURGERY-2006;BACK SURGERY-1997;RIGHT BREAST LUMP-1996;RIGHT FOOT SURGERY 1993 - ANESTHESIA Hx Anesthesia: Yes Hx Anesthesia Reactions: No Hx Malignant Hyperthermia: No Meds Allergies/Adverse Reactions: Allergies Allergy/AdvReac Type Severity Reaction Status Date / Time aspirin Allergy VOMITING Verified 03/11/19 13:48 olive oil Allergy SWELLING Verified 03/11/19 13:48 - Medications Medications: Current Medications Amlodipine Besylate (Norvasc) 10 mg PO DAILY [facility] Last Admin: 03/19/19 08:38 Dose: 10 mg Apixaban (Eliquis) 5 mg PO BID [facility]; Protocol Last Admin: 03/19/19 08:37 Dose: 5 mg Docusate Sodium (Colace) 100 mg PO BID [facility] Last Admin: 03/19/19 08:37 Dose: 100 mg Guaifenesin/Dextromethorphan (Mucinex-Dm 600-30 Mg) 1 tab PO BID [facility] Last Admin: 03/19/19 08:36 Dose: 1 tab Insulin Human Lispro (Humalog) 0 units SC [facility]; Protocol Last Admin: 03/19/19 12:27 Dose: 2 unit Magnesium Chloride (Slow-Mag) 64 mg PO BID [facility] Last Admin: 03/19/19 08:35 Dose: 64 mg Metformin HCl (Glucophage) 850 mg PO BIDWM [facility] Last Admin: 03/19/19 08:36 Dose: 850 mg Pantoprazole Sodium (Protonix Ec Tab) 40 mg PO DAILY [facility] Last Admin: 03/19/19 08:39 Dose: 40 mg Pravastatin Sodium (Pravachol) 20 mg PO HS [facility] Last Admin: 03/18/19 21:41 Dose: 20 mg Prednisone (Prednisone Tab) 5 mg PO DAILY [facility] Last Admin: 03/19/19 08:38 Dose: 5 mg Physical Exam - Constitutional Appears: No Acute Distress - Eye Exam Eye Exam: Conjunctival injection - ENT Exam ENT Exam: Mucous Membranes Moist - Neck Exam Neck exam: Negative for: Lymphadenopathy - Respiratory Exam Respiratory Exam: NORMAL BREATHING PATTERN. absent: Rhonchi - Cardiovascular Exam Cardiovascular Exam: Irregular Rhythm. absent: Gallop, JVD, Rubs - GI/Abdominal Exam GI & Abdominal Exam: Normal Bowel Sounds. absent: Guarding - Extremities Exam Extremities exam: Negative for: calf tenderness - Back Exam Back exam: absent: CVA tenderness (L), CVA tenderness (R) - Neurological Exam Neurological exam: Alert - Psychiatric Exam Psychiatric exam: Normal Affect Results - Vital Signs Recent Vital Signs: Last Vital Signs Temp 97.7 F 03/19/19 08:17 Pulse 89 03/19/19 08:38 Resp 20 03/19/19 08:17 BP 126/72 03/19/19 08:38 Pulse Ox 96 03/19/19 08:17 - Labs Result Diagrams: 03/14/19 05:10 03/19/19 06:00 Labs: Laboratory Results - last 24 hr 03/17/19 03/18/19 03/18/19 06:45 11:03 16:38 Sodium Potassium Chloride Carbon Dioxide Anion Gap BUN Creatinine Est GFR ( Amer) Est GFR (Non-Af Amer) POC Glucose (mg/dL) 185 H 185 H Random Glucose Calcium Phosphorus Magnesium Total Bilirubin AST ALT Alkaline Phosphatase Total Protein Albumin Globulin Albumin/Globulin Ratio PTH Intact Whole Molec 199 H 03/18/19 03/19/19 21:32 06:00 Sodium 133 Potassium 3.4 L Chloride 98 Carbon Dioxide 30 Anion Gap 8 L BUN 23 H Creatinine 0.8 Est GFR ( Amer) > 60 Est GFR (Non-Af Amer) > 60 POC Glucose (mg/dL) 108 Random Glucose 102 Calcium 10.5 H Phosphorus 2.5 Magnesium 1.0 L* Total Bilirubin 0.4 AST 17 ALT 28 Alkaline Phosphatase 54 Total Protein 5.5 L Albumin 3.3 L Globulin 2.2 Albumin/Globulin Ratio 1.5 PTH Intact Whole Molec Assessment & Plan - Assessment and Plan (Free Text) Assessment: Hypokalemia Hypomagnesemia Hypercalcemia High PTH probably related to primary hyperparathyroidism Recommendation Hypokalemia and hypomagnesemia secondary to use of diuretics patient was on hydrochlorothiazide and Lasix Therefore to give potassium chloride to stat dose now and patient given magnesiu m oxide 2 tablets stat and to repeat magnesium and potassium tomorrow As far as hypercalcemia Endocrinology on the case and being follow-up with the management
--- NOTE | 2019-03-19 18:39 | CP.PCM.PN ---
Subjective - Date & Time of Evaluation Date of Evaluation: 03/19/19 Time of Evaluation: 22:22 - Subjective Subjective: K+ #.4 Mg 1.0 Multiple calls to staff and family Will hold d/c due to above Objective - Vital Signs/Intake and Output Vital Signs (last 24 hours): Temp Pulse Resp BP Pulse Ox 97.2 F L 88 20 137/69 96 03/19/19 16:30 03/19/19 16:30 03/19/19 16:30 03/19/19 16:30 03/19/19 16:30 - Medications Medications: Current Medications Amlodipine Besylate (Norvasc) 10 mg PO DAILY [facility] Last Admin: 03/19/19 08:38 Dose: 10 mg Apixaban (Eliquis) 5 mg PO BID [facility]; Protocol Last Admin: 03/19/19 16:40 Dose: 5 mg Docusate Sodium (Colace) 100 mg PO BID [facility] Last Admin: 03/19/19 16:39 Dose: 100 mg Guaifenesin/Dextromethorphan (Mucinex-Dm 600-30 Mg) 1 tab PO BID [facility] Last Admin: 03/19/19 16:42 Dose: 1 tab Insulin Human Lispro (Humalog) 0 units SC [facility]; Protocol Last Admin: 03/19/19 16:41 Dose: Not Given Magnesium Chloride (Slow-Mag) 64 mg PO BID [facility] Last Admin: 03/19/19 16:43 Dose: 64 mg Metformin HCl (Glucophage) 850 mg PO BIDWM [facility] Last Admin: 03/19/19 16:41 Dose: 850 mg Pantoprazole Sodium (Protonix Ec Tab) 40 mg PO DAILY [facility] Last Admin: 03/19/19 08:39 Dose: 40 mg Pravastatin Sodium (Pravachol) 20 mg PO HS [facility] Last Admin: 03/18/19 21:41 Dose: 20 mg Prednisone (Prednisone Tab) 5 mg PO DAILY [facility] Last Admin: 03/19/19 08:38 Dose: 5 mg - Labs Labs: 03/14/19 05:10 03/19/19 06:00 - Respiratory Exam Respiratory Exam: NORMAL BREATHING PATTERN - Cardiovascular Exam Cardiovascular Exam: REGULAR RHYTHM - GI/Abdominal Exam GI & Abdominal Exam: Normal Bowel Sounds - Rectal Exam Rectal Exam: NORMAL INSPECTION Assessment and Plan - Assessment and Plan (Free Text) Assessment: Deconditioning TCU K+ 3.4 Mg 1.0 Nephrology COPD acute excerbation Pneumonia? Persistent cough LALITO d/c Steroids Bronchodilators ABX O2 Pulmonary ENT Hyperparathyroidism ? serum PTH intact Endo Thyroid ?? Endo NIDDM Endo Cont meds HX CVA Afib on Eliquis HTN LALITO d/c Norvasc Dig started BNP ?? Echo LVH with LV ej fx 65-70% Cardiology MDS Hematology note appreciated LBP
--- NOTE | 2019-03-19 20:42 | PN ---
DATE: 03/19/2019 ENDOCRINOLOGY FOLLOWUP NOTE LOCATION: Room 712. SUBJECTIVE: This is an 84-year-old female with recent uncontrolled type 2 diabetes, now with improved metabolic profile with the initiation of oral hypoglycemic therapy as given. Her glycemic levels are fluctuating but improved and the glucose values have ranged from 108-185 mg/dL. LABORATORY DATA: Her chemistry showed a BUN of 23, sodium 133, potassium 3.4, chloride 98, CO2 of 30, glucose 102 and creatinine 0.8. Her calcium level is 10.5 with an albumin level of 3.3. Corrected calcium of 11.2 mg/dL. Her PTH level is pending at this time. Her magnesium level is 1, which is low. ASSESSMENT: This is an 84-year-old female with uncontrolled type 2 diabetes, now with near optimal metabolic profile on oral hypoglycemic therapy as given. She also has had recent hypomagnesemia with supervening hypercalcemia as noted thereof. She also gets transient bouts of hypercalcemia most likely related to dehydration with ongoing and previous usage of diuretic therapy as given. PLAN OF MANAGEMENT: We will discontinue the hydrochlorothiazide medications as previously given, as this will contribute not only to the hypercalcemia, but also to the hypomagnesemia and low renal indices thereof. We will follow and advise accordingly. Padmaja Yo MD
[2019-03-19] MEDS: Pravastatin Sodium 20 MG TAB PO SCH (21:24)
[2019-03-19 22:27] VITALS: TEMP 98.1
[2019-03-20 06:45] LABS: BLOOD UREA NITROGEN 23 mg/dl (7-17); CALCIUM 10.4 mg/dL (8.4-10.2); GFR NON-AFRICAN AMERICAN > 60
[2019-03-20] MEDS: Insulin Lispro (humaLOG) 100 Units/ml Inj SC SCH ×2 (06:50→13:13)
[2019-03-20 08:01] VITALS: BP 116/67; PULSE 93; O2SAT 96
[2019-03-20] MEDS: guaiFENesin-DM 600-30 mg ER Tab PO SCH (08:47)
[2019-03-20] MEDS: Magnesium Chloride 64 mg ER Tab PO SCH (08:49)
[2019-03-20] MEDS: Pantoprazole 40 mg EC Tab PO SCH (08:49)
[2019-03-20] MEDS ORDERED: Potassium Chloride 20 mEq ER Tab PO ONE (13:00)
--- NOTE | 2019-03-20 13:07 | PN ---
DATE: 03/20/2019 LOCATION: Room 712. SUBJECTIVE: This is an 84-year-old female with recent uncontrolled type 2 diabetes, now being followed closely for metabolic management. Her glycemic levels have remained near optimal as noted overnight and the glucose levels range from 111 to 121 mg/dL. Her chemistry showed a BUN of 23, sodium 133, potassium 3.8, chloride 98, CO2 of 30, glucose 111 and creatinine 0.8. Her calcium level is down to 10.4 mg/dL. Magnesium is still low at 1.3. ASSESSMENT: This is an 84-year-old female with uncontrolled type 2 diabetes with near optimal metabolic control on oral hypoglycemic therapy with supervening hypercalcemia and hypomagnesemia which will also contribute to the hypocalcemia as noted otherwise. However, the patient now has supervening hypercalcemia and we are awaiting the results of the parathyroid hormone intact level to confirm and/or negate the presence of parathyroid-related hormonal disorder. PLAN OF MANAGEMENT: We will continue the metformin given as 850 mg b.i.d. as ordered. We will continue also the low-dose correction scale using Humalog insulin as given. We will obtain serial chemistries and supplement accordingly as needed. We will follow with you. Padmaja Yo MD
--- NOTE | 2019-03-20 14:13 | CP.PCM.PN ---
Subjective - Date & Time of Evaluation Date of Evaluation: 03/20/19 Time of Evaluation: 14:12 - Subjective Subjective: renal follow up note no events ovrenight vitals reviewed heent normal op moist [id number] resent no resp dsitress awake no fnd Hypokalemia Hypomagnesemia Hypercalcemia High PTH probably related to primary hyperparathyroidism contiue replacement of electrolytes as ordered monitor levels daily awaiting placement, if discharged today recommend po potassium 20 daily and magnesium 64 daily and follow up bmp in 1 week in opt Objective - Vital Signs/Intake and Output Vital Signs (last 24 hours): Temp Pulse Resp BP Pulse Ox 98.1 F 93 H 20 116/67 96 03/20/19 08:00 03/20/19 08:49 03/20/19 08:00 03/20/19 08:49 03/20/19 08:00 - Medications Medications: Current Medications Amlodipine Besylate (Norvasc) 10 mg PO DAILY [facility] Last Admin: 03/20/19 08:49 Dose: 10 mg Apixaban (Eliquis) 5 mg PO BID [facility]; Protocol Last Admin: 03/20/19 08:49 Dose: 5 mg Docusate Sodium (Colace) 100 mg PO BID [facility] Last Admin: 03/20/19 08:47 Dose: 100 mg Guaifenesin/Dextromethorphan (Mucinex-Dm 600-30 Mg) 1 tab PO BID [facility] Last Admin: 03/20/19 08:47 Dose: 1 tab Insulin Human Lispro (Humalog) 0 units SC [facility]; Protocol Last Admin: 03/20/19 13:13 Dose: 1 unit Magnesium Chloride (Slow-Mag) 64 mg PO DAILY [facility] Metformin HCl (Glucophage) 850 mg PO BIDWM [facility] Last Admin: 03/20/19 08:48 Dose: 850 mg Pantoprazole Sodium (Protonix Ec Tab) 40 mg PO DAILY [facility] Last Admin: 03/20/19 08:49 Dose: 40 mg Potassium Chloride (K-Dur 20 Meq Er Tab) 20 meq PO DAILY [facility] Pravastatin Sodium (Pravachol) 20 mg PO HS [facility] Last Admin: 03/19/19 21:24 Dose: 20 mg Prednisone (Prednisone Tab) 5 mg PO DAILY [facility] Last Admin: 03/20/19 08:49 Dose: 5 mg - Labs Labs: 03/14/19 05:10 03/20/19 04:30
--- NOTE | 2019-03-20 19:21 | CP.PCM.PN ---
Subjective - Date & Time of Evaluation Date of Evaluation: 03/20/19 Time of Evaluation: 22:22 - Subjective Subjective: K= 3.8 Mg 1.3 Multiple calls and extended discussion with staff, family and pharmacy Objective - Vital Signs/Intake and Output Vital Signs (last 24 hours): Temp Pulse Resp BP Pulse Ox 98.1 F 93 H 20 116/67 96 03/20/19 08:00 03/20/19 08:49 03/20/19 08:00 03/20/19 08:49 03/20/19 08:00 - Labs Labs: 03/14/19 05:10 03/20/19 04:30 Assessment and Plan - Assessment and Plan (Free Text) Assessment: Deconditioning TCU Hypokalemia Hypomagnesium K+ 3.8 Mg 1.3 Nephrology COPD acute excerbation Pneumonia? Persistent cough LALITO d/c Steroids Bronchodilators ABX O2 Pulmonary ENT Hyperparathyroidism ? serum PTH intact Endo Thyroid ?? Endo NIDDM Endo Cont meds HX CVA Afib on Eliquis HTN LALITO d/c Norvasc Dig started BNP ?? Echo LVH with LV ej fx 65-70% Cardiology MDS Hematology note appreciated LBP
[2019-03-21] MEDS ORDERED: Potassium Chloride 20 mEq ER Tab PO SCH (09:00)
[2019-03-21] MEDS ORDERED: Magnesium Chloride 64 mg ER Tab PO SCH (09:00)
== END 2019-03-20 15:15 | disposition home health service (06) | DRG 191 ==
LOC: H.TCU 13:54
PROVIDERS: ADMIT Family Medicine Geriatric Medicine; ATTEND Family Medicine Geriatric Medicine
PROC: 3E0F7GC Introduction of Other Therapeutic Substance into Respiratory Tract, Via Natural or Artificial Opening (ICD-10-PCS; principal; 2019-03-13)
PROC: F07M6FZ Therapeutic Exercise Treatment of Musculoskeletal System - Whole Body using Assistive, Adaptive, Supportive or Protective Equipment (ICD-10-PCS; 2019-03-13)
PROC: F08Z4FZ Home Management Treatment using Assistive, Adaptive, Supportive or Protective Equipment (ICD-10-PCS; 2019-03-13)
DX: J44.1 Chronic obstructive pulmonary disease with (acute) exacerbation (principal); Z68.41 Body mass index [BMI] 40.0-44.9, adult; E87.2 Acidosis; K59.00 Constipation, unspecified; Z79.01 Long term (current) use of anticoagulants; Z79.4 Long term (current) use of insulin; I48.91 Unspecified atrial fibrillation; Z86.73 Personal history of transient ischemic attack (TIA), and cerebral infarction without residual deficits; D64.9 Anemia, unspecified; M19.90 Unspecified osteoarthritis, unspecified site; M48.00 Spinal stenosis, site unspecified; R00.0 Tachycardia, unspecified; R09.89 Other specified symptoms and signs involving the circulatory and respiratory systems; E11.649 Type 2 diabetes mellitus with hypoglycemia without coma; E11.65 Type 2 diabetes mellitus with hyperglycemia; E21.0 Primary hyperparathyroidism; E66.09 Other obesity due to excess calories; Z71.3 Dietary counseling and surveillance; E83.42 Hypomagnesemia; E83.51 Hypocalcemia; E86.0 Dehydration; E87.6 Hypokalemia; I10 Essential (primary) hypertension